=== PATIENT | male | born 1955 | race Caucasian/White ===

== ENCOUNTER → 2017-09-17 | Outpatient (CLI) | payer BC ==
--- NOTE | 2017-09-17 09:34 | Diagnostic Imaging Report ---
INDICATION: Cough. TIME OF EXAM: 9:35 AM Correlation is made with prior study 03/15/2007. FINDINGS: The heart size is normal. The pulmonary vascularity is unremarkable. The lungs are clear. No infiltrate, effusion or pneumothorax is detected. IMPRESSION: No acute cardiopulmonary process is detected. Dictated by: Dictated on workstation # [id number]
== END ==
LOC: RAD 09:08
PROVIDERS: ATTEND Internal Medicine
DX: R05 Cough (principal)
CPT/HCPCS: 71046

== ENCOUNTER 2018-03-28 07:41 | Day surgery (SDC) | payer BC ==
[~2018-03-28] VITALS: Ht 185.4 cm; Wt 159.2 kg
[2018-03-28] VITALS (8 sets, daily range): BP systolic 119–162; BP diastolic 70–103
[~2018-03-28 07:41] MED LIST: AMIO200T4 PO; AMLO-119 PO; APIX5TAB PO; ASPI-983 PO; ATEN100T PO; DILT120C63 PO; ERGO50006 PO; FENO145T37 PO; GLIM2TAB PO; INSU100I10 SC; INSU100I14 SC; KRIL1CAP18 PO; METF-399 PO; METO-370 PO; MULT-35 PO; SIMV20TA3 PO; TRIA1CAP4 PO; UBID200C16 PO
[2018-03-28] MEDS ORDERED: NS IV 1000 ML 1,000 ML ONE (07:49)
--- OUTSIDE RECORDS SUMMARY | 2018-03-28 07:54 | XMS REPORT | Continuity of Care Document ---
Author Author [facility] Organization [facility] Address Unknown Phone Unavailable Allergies There is no data. Medications There is no data. Problems There is no data. Procedures There is no data. Results There is no data. Encounters ACCT No. Visit Date/Time Discharge Status Pt. Type Provider Facility Loc./Unit Complaint [id number] 06/25/2014 09:27:10 06/25/2014 23:59:59 CLS Outpatient Tom Salomon
[2018-03-28] MEDS ORDERED: NS IV 1000 ML 1,000 ML IV SCH (08:00)
[2018-03-28] MEDS ORDERED: DILT240T10 PO (09:13)
[2018-03-28] MEDS ORDERED: DILT240C63 PO (09:14)
[2018-03-28] MEDS ORDERED: AMLO-119 (09:15)
[2018-03-28] MEDS ORDERED: KRIL1CAP18 PO (09:17)
[2018-03-28] MEDS ORDERED: INSU100I14 SQ (09:21)
[2018-03-28] MEDS ORDERED: AMIO200T4 PO (09:21)
[2018-03-28] MEDS ORDERED: FURO20TA4 PO (09:22)
[2018-03-28] MEDS ORDERED: proPOfol 200 MG/20 ML (DIPRIVAN) VIAL IV ONE (09:30)
[2018-03-28] MEDS ORDERED: MIDAZOLAM 2 MG/2 ML (VERSED) VIAL ONE (09:30)
--- NOTE | 2018-03-28 09:59 | Progress Note-Standard ---
Standard Progress Note Progress Notes/Assess & Plan Date Seen by Provider: Mar 28, 2018 Time Seen by Provider: 09:50 Progress/Assessment & Plan consult for sedation for cardioversion. start time 0950 end alyssa [id number] mac anesthesia. asa 3. 100mg propofol IV and 2mg versed IV given. tolerated procedure well.. MARS WREN CRNA Mar 28, 2018 09:59
--- NOTE | 2018-03-28 10:14 | Cardioversion ---
Cardioversion PROCEDURE PHYSICIAN: Mckenna Zhou MD DATE OF PROCEDURE: 03/28/18 DIRECT EXTERNAL ELECTRICAL CARDIOVERSION: Indications: Atrial flutter with rapid ventricular rate Preoperative diagnoses: Atrial flutter with rapid ventricular rate Postoperative diagnosis: Sinus rhythm, Successful Electrical Cardioversion History: Anesthesia: By Anesthesia services Complications: None Specimen: None Contrast: 0 Flouroscopy: none Procedure Details: The patient was brought the medical lab director after informed consent was taken, all the risks and complications were explained including the risk of stroke. Electrical cardioversion was carried out with anesthesia support with propofol. 200 joules of synchronized shock was delivered through external patches which promptly restored sinus rhythm. The patient tolerated the procedure well. Conclusions: 1.Successful Cardioversion. 2.Continue amiodarone, oral anticoagulation and rate controlling agent. 3.Follow up in office in 7-10 days. Mckenna Zhou MD, RS, CCDS Cardiac Electrophysiology Jacy ZHOU MD Mar 28, 2018 10:14
== END 2018-03-28 10:54 | disposition home or self-care (01) ==
LOC: CATH 07:41
PROVIDERS: ATTEND Internal Medicine Interventional Cardiology
DX: I48.92 Unspecified atrial flutter (principal); I44.39 Other atrioventricular block; I10 Essential (primary) hypertension; E11.9 Type 2 diabetes mellitus without complications; G47.33 Obstructive sleep apnea (adult) (pediatric); E66.01 Morbid (severe) obesity due to excess calories; Z68.42 Body mass index [BMI] 45.0-49.9, adult; Z79.01 Long term (current) use of anticoagulants; Z79.899 Other long term (current) drug therapy; Z79.4 Long term (current) use of insulin
CPT/HCPCS: 92960; 93005

== ENCOUNTER 2018-05-06 06:10 | Outpatient (CLI) | payer BC ==
[~2018-05-06] VITALS: Ht 185.4 cm; Wt 159.2 kg
[~2018-05-06 06:10] MED LIST changes: +AMLO-119; +DILT240C63 PO; +DILT240T10 PO; +FURO20TA4 PO; +INSU100I14 SQ
[2018-05-06] MEDS ORDERED: UBID100C44 PO (14:21)
[2018-05-06] MEDS ORDERED: METO-370 PO (14:21)
[2018-05-06] MEDS ORDERED: APIX5TAB PO (14:21)
[2018-05-06] MEDS ORDERED: AMLO1CAP5 PO (14:21)
== END 2018-05-06 14:32 | disposition home or self-care (01) ==
LOC: PREOP 06:10
PROVIDERS: ATTEND Internal Medicine Interventional Cardiology
DX: Z01.818 Encounter for other preprocedural examination (principal)

== ENCOUNTER 2018-05-13 06:18 | Day surgery (SDC) | payer BC ==
[~2018-05-13] VITALS: Ht 185.4 cm; Wt 159.2 kg
[2018-05-13] VITALS (9 sets, daily range): BP systolic 92–159; BP diastolic 57–105
[~2018-05-13 06:18] MED LIST changes: +AMLO1CAP5 PO; -DILT240C63 PO; +DILT240C97 PO; +UBID100C44 PO
--- OUTSIDE RECORDS SUMMARY | 2018-05-13 06:31 | XMS REPORT | Continuity of Care Document ---
Author Author [facility] Organization [facility] Address Unknown Phone Unavailable Allergies There is no data. Medications There is no data. Problems There is no data. Procedures There is no data. Results There is no data. Encounters ACCT No. Visit Date/Time Discharge Status Pt. Type Provider Facility Loc./Unit Complaint [id number] 06/25/2014 09:27:10 06/25/2014 23:59:59 CLS Outpatient Tom Salomon
[2018-05-13] MEDS ORDERED: NS IV 1000 ML 1,000 ML ONE (06:47)
[2018-05-13] MEDS ORDERED: HEParin (CATH LAB) 2,000 ML IV ONE (06:47)
[2018-05-13] MEDS ORDERED: LIDOCAINE 1% INJ 20 ML 20 ML VIAL ONE (06:47)
[2018-05-13] MEDS ORDERED: ISOPROTERENOL 0.2 MG/100 ML D5W IV ONE ×2 (07:00→08:00)
[2018-05-13 07:17] LABS: HEMOGLOBIN 13.8 G/DL (13.3-17.7); MEAN PLATELET VOLUME 10.8 FL (7.4-10.4); RED BLOOD COUNT 4.99 10^6/uL (4.35-5.85); RED CELL DISTRIBUTION WIDTH 14.3 % (10.0-14.5); WHITE BLOOD COUNT 7.3 10^3/uL (4.3-11.0)
[2018-05-13 07:29] LABS: PROTHROMBIN TIME PATIENT 13.5 SEC (12.2-14.7)
[2018-05-13 07:39] LABS: ALANINE AMINOTRANSFERASE 37 U/L (0-55); ALBUMIN 4.2 GM/DL (3.2-4.5); ALKALINE PHOSPHATASE 47 U/L (40-136); BILIRUBIN,TOTAL 0.4 MG/DL (0.1-1.0); BUN/CREATININE RATIO 18; CALCIUM 9.4 MG/DL (8.5-10.1); CARBON DIOXIDE 24 MMOL/L (21-32); CHLORIDE 104 MMOL/L (98-107); GFR ESTIMATED > 60; GLUCOSE 179 MG/DL (70-105); POTASSIUM 4.3 MMOL/L (3.6-5.0); SODIUM 139 MMOL/L (135-145); TOTAL PROTEIN 8.1 GM/DL (6.4-8.2)
[2018-05-13] MEDS ORDERED: ROCURONIUM 10 MG/ML 5 ML SYRINGE IV ONE (07:56)
[2018-05-13] MEDS ORDERED: fentaNYL INJECTION 100 MCG/2 ML AMP ONE (07:56)
[2018-05-13] MEDS ORDERED: SUCCINYLCHOLINE INJ 100 MG/5 ML SYR ONE (07:56)
[2018-05-13] MEDS ORDERED: proPOfol 200 MG/20 ML (DIPRIVAN) VIAL IV ONE (07:56)
[2018-05-13] MEDS ORDERED: LIDOCAINE BOLUS 100 MG/5 ML (IMS) SYR ONE (07:57)
[2018-05-13] MEDS ORDERED: FLU QUADRIvalent (5+ YOA) 2018-2019 (AFLURIA) 0.5 ML IM ONE ×2 (08:00→14:28)
[2018-05-13] MEDS ORDERED: MIDAZOLAM 2 MG/2 ML (VERSED) VIAL ONE (08:09)
[2018-05-13] MEDS ORDERED: SEVOFLURANE (ULTANE) 15 ML INHAL SOLN ONE (08:17)
[2018-05-13] MEDS ORDERED: LACTATED RINGERS 1,000 ML IV ONE (10:04)
[2018-05-13] MEDS ORDERED: ONDANSETRON 4 MG/2 ML (SDV) Z0FRAN ONE (11:18)
[2018-05-13] MEDS ORDERED: NS IV 1000 ML 1,000 ML IV SCH (11:27)
--- NOTE | 2018-05-13 11:27 | Cardiology Post Procedure Note ---
Post-Procedure Note Physician (s)/Waste Disposal Plant Operator (s) Physician Jacy DUNCAN MD Pre-Procedure Diagnosis Pre-Procedure Diagnosis: Typical atrial flutter. Post-Procedure Note Procedure Start Date: May 13, 2018 Procedure Start Time: 09:10 Name of Procedure: Direct Electrical Cardioversion, Comprehensive EP study, 3-D mapping, drug-induction, typical atrial flutter ablation. Findings/Procedure Note Typical atrial flutter ablation. Estimated blood loss (mL): 10 Contrast Amount: 0 Post-Procedure Diagnosis Post-operative diagnosis: Direct electrical cardioversion, typical atrial flutter ablation. Jacy DUNCAN MD May 13, 2018 11:27 am
[2018-05-13] MEDS ORDERED: APIXABAN 5 MG (ELIQUIS) TABLET PO SCH ×2 (11:30→21:00)
[2018-05-13] MEDS ORDERED: PATIENT MAY USE OWN MEDS, ALL PO SCH (11:30)
[2018-05-13] MEDS ORDERED: ONDANSETRON 4 MG/2 ML (SDV) Z0FRAN IVP PRN (12:15)
[2018-05-13] MEDS ORDERED: fentaNYL INJECTION 100 MCG/2 ML AMP IVP ONE (12:15)
[2018-05-13] MEDS ORDERED: FUROSEMIDE 40 MG/4 ML INJ (LASIX) ONE (12:27)
[2018-05-13] MEDS ORDERED: FUROSEMIDE 40 MG/4 ML INJ (LASIX) IVP ONE (12:30)
[2018-05-13] MEDS: APIXABAN 5 MG (ELIQUIS) TABLET PO SCH ×2 (14:39→20:40)
[2018-05-13] MEDS ORDERED: FUROSEMIDE 20 MG (LASIX) TAB PO PRN (16:00)
[2018-05-13] MEDS ORDERED: NON-FORMULARY MEDICATION 1 EA EA (Insulin Aspart (Novolog Flexpen) 25 UNITS) SC SCH (16:00)
[2018-05-13] MEDS: inSUlin ASPART (NovoLOG) 1 UNIT/0.01 ML (CHARGE PER UNIT) SC SCH (16:44)
[2018-05-13] MEDS: GLIMEPIRIDE 2 MG (AMARYL) TAB PO SCH (16:44)
[2018-05-13] MEDS ORDERED: VITAMIN D2 50,000 UNITS (1.25 MG) CAP PO SCH (17:00)
[2018-05-13] MEDS ORDERED: NON-FORMULARY MEDICATION 1 EA EA (Insulin Glargine,Hum.rec.anlog (Lantus Solostar) 45 UNIT SC SCH (21:00)
[2018-05-13] MEDS ORDERED: ATORVASTATIN 10 MG (LIPITOR) TABLET PO SCH (21:00)
[2018-05-13] MEDS ORDERED: SIMvastatin 20 MG (ZOCOR) TAB PO SCH (21:00)
[2018-05-13] MEDS ORDERED: inSUlin GLARGINE 1000 UNITS/10 ML (LANTUS) VIAL SQ SCH (21:00)
[2018-05-13] MEDS ORDERED: NON-FORMULARY MEDICATION 1 EA EA (Krill/Om-3/Dha/Epa/Phospho/Ast (Krill Oil 1,000 mg Softg PO SCH (21:00)
--- NOTE | 2018-05-13 23:17 | OPERATIVE REPORT ---
DATE OF SERVICE: 05/13/2018 EP STUDY AND TYPICAL ATRIAL FLUTTER ABLATION CARDIAC HOSTESS PARTY SALES REPRESENTATIVE: Mckenna Zhou MD, [facility], [facility]. INDICATION: Typical atrial flutter - CTI dependent. PREOPERATIVE DIAGNOSIS: Typical atrial flutter - CTI dependent. POSTOPERATIVE DIAGNOSIS: Typical atrial flutter, status post cavotricuspid isthmus ablation. HISTORY: This is a 62-year-old gentleman with history of symptomatic typical atrial flutter that required transesophageal echocardiogram assisted cardioversion. He was on antiarrhythmic therapy with amiodarone. Typical atrial flutter ablation was planned. The patient was on uninterrupted Eliquis. PROCEDURE PERFORMED: 1. Direct electrical cardioversion. 2. Comprehensive EP study with induction. 3. Fluoroscopy. 4. CS pacing. 5. Ablation of typical atrial flutter. 6. 3D mapping with carto. 7. Drug infusion. COMPLICATION: None. ESTIMATED BLOOD LOSS: 10 mL. CONTRAST USED: None. FLUOROSCOPY TIME: 6.2 minutes. FLUOROSCOPY DOSE: 480 milligrays. SPECIMENS: None. ANESTHESIA: Done by our anesthesia colleagues. Please refer to their note. ANTICOAGULATION: On uninterrupted Eliquis therapy. PROCEDURE IN DETAIL: After informed consent was taken, the patient was brought to the EP lab. Anesthesia was provided by our anesthesia colleagues. The patient was draped and prepped in the usual sterile fashion. The patient presented to the EP lab in atrial fibrillation. Since the patient was on an uninterrupted Eliquis after the previous transesophageal echocardiogram. Therefore, direct electrical cardioversion was done with synchronized 200 joules shock which converted the patient promptly to sinus rhythm. Access was gained in the right femoral vein with a 6-[place] and an 8-[place] sheath, respectively. Access was also gained in the left femoral vein with 5-[place] and 6-[place] sheath, respectively. An ablation catheter was placed in the high right atrium, right ventricular catheter was placed, His catheter and CS catheter was placed for pacing and recording. A comprehensive EP study was done, which included pacing from the high right atrium as well as pacing and recording from the CS catheter as well. Isuprel was started at 1 microgram per minute and increased to 8 mcg per minute. Numerous maneuvers were done including rapid atrial pacing and APCs during A pacing with no induction of atrial flutter. 3D electroanatomic mapping was done with the carto system. We created a shell of the right atrium with a mapping system as well as identified critical structures in the right atrium including the SVC, IVC, tricuspid annulus, coronary sinus os, His electrogram. Ablation was performed in the cavotricuspid isthmus. A CS pacing and pacing from the ablation catheter at different positions on the lateral side of the ablation line were used to verify bidirectional block. We then waited for 30 minutes and rechecked and confirmed bidirectional block. The patient tolerated the procedure well and did not have any complication. The patient left the lab in sinus rhythm. Total ablation time was 171 seconds. MEASUREMENTS/EP STUDY: AH time 179 milliseconds. HV time. WI interval 162 milliseconds, QRS duration 57 milliseconds. QT interval 322 milliseconds. RR interval 527 milliseconds, AV Wenckebach 490 milliseconds. Retrograde Wenckebach 590 milliseconds. AV node fast ERP. AV node slow pathway ERP. AV esha ERP 600/330 milliseconds. 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 PLAN: The patient will be observed overnight and will be discharged home tomorrow with precise follow up instructions. Job ID: [id number] DocumentID: [id number] Dictated Date: 05/13/2018 21:57:58 Lifeguard Date: 05/13/2018 23:17:02 Dictated By: MD MATEO BOOKERD
[2018-05-14] VITALS: BP 150/83
[2018-05-14 04:00] VITALS: BP 128/82
[2018-05-14] MEDS: inSUlin ASPART (NovoLOG) 1 UNIT/0.01 ML (CHARGE PER UNIT) SC SCH (06:57)
[2018-05-14] MEDS: GLIMEPIRIDE 2 MG (AMARYL) TAB PO SCH (06:58)
[2018-05-14] MEDS ORDERED: MULTIVIT W/MINERALS TAB (THERAGRAN M) PO SCH (07:00)
--- NOTE | 2018-05-14 07:13 | Anesthesia-General Post-Op ---
General Patient Condition Mental Status/LOC: Same as Preop Cardiovascular: Satisfactory Nausea/Vomiting: Absent Respiratory: Satisfactory Pain: Controlled Complications: Absent Post Op Complications Complications None Follow Up Care/Instructions Patient Instructions None needed. Anesthesia/Patient Condition Patient Condition Patient is doing well, no complaints, stable vital signs, no apparent adverse anesthesia problems. No complications reported per nursing. CATHY REECE CRNA May 14, 2018 07:13
[2018-05-14 07:55] VITALS: BP 157/80
[2018-05-14] MEDS: APIXABAN 5 MG (ELIQUIS) TABLET PO SCH (08:00)
[2018-05-14] MEDS ORDERED: NON-FORMULARY MEDICATION 1 EA EA (Ubidecarenone (Co Q-10) 100 MG) PO SCH (09:00)
[2018-05-14] MEDS ORDERED: NON-FORMULARY MEDICATION 1 EA EA (Diltiazem HCl (Diltiazem 24Hr Cd) 240 MG) PO SCH (09:00)
[2018-05-14] MEDS ORDERED: AMLODIPINE PO SCH (09:00)
[2018-05-14] MEDS ORDERED: BENAZEPRIL PO SCH (09:00)
[2018-05-14] MEDS ORDERED: FENOFIBRATE 145 MG TAB PO SCH (09:00)
[2018-05-14] MEDS ORDERED: NON-FORMULARY MEDICATION 1 EA EA (Multivitamin (Daily Multiple Vitamin) 1 TAB) PO SCH (09:00)
[2018-05-14] MEDS ORDERED: NON-FORMULARY MEDICATION 1 EA EA (Fenofibrate Nanocrystallized (Fenofibrate) 145 MG) PO SCH (09:00)
[2018-05-14] MEDS ORDERED: meTOproloL SUCCINATE 50 MG (TOPROL XL) TAB PO SCH ×2 (09:00)
[2018-05-14] MEDS ORDERED: SIMvastatin 20 MG (ZOCOR) TAB PO SCH (09:00)
[2018-05-14] MEDS ORDERED: DILTIAZEM 240 MG (CARDIZEM CD) CAP PO SCH (09:00)
--- NOTE | 2018-05-14 09:11 | Cardiology Discharge Summary ---
Diagnosis/Chief Complaint Date of Admission 05/13/2018 Date of Discharge 05/14/2018 Admission Diagnosis Typical atrial flutter Final/Discharge Diagnosis Successful typical atrial flutter ablation. Chief Complaint/HPI Chief Complaint/HPI This is a 62-year-old gentleman with history of typical atrial flutter. The patient was very symptomatic. He was on amiodarone. Typical atrial flutter ablation is recommended. Discharge Summary Procedures Direct Electrical Cardioversion, Comprehensive EP study, 3-D mapping, drug- induction, typical atrial flutter ablation. Discharge Physical Examination Stable cardiovascular, respiratory and groin examination. Hospital Course Unremarkable. Pending Labs Laboratory Tests 05/14/18 07:00: Glucometer 107 Discussion & Recommendations Discussion Discharge took over 30 minutes to complete. Discharge instructions were discussed at length with the patient and family. The patient will continue on Eliquis long-term. We'll discuss about further atrial fibrillation management in the future. I'll follow-up the patient in 3-4 weeks. Follow up appt.: Dr. Zhou in 3-4 weeks. Dicharge Diet: Cardiac Diet Activity as Tolerated: Yes Home Medications Reviewed patient Home Medication Reconciliation performed by pharmacy medication reconciliations projection technician and/or nursing. Patients Allergies have been reviewed. Discharge Home Medications: Reviewed and agree with Discharge Medication list on patient's Discharge Instruction sheet Condition at discharge Stable. Instructions to patient/family Discussed with the patient and family. Jacy ZHOU MD May 14, 2018 9:11 am
[2018-05-14 10:57] VITALS: BP 157/80
== END 2018-05-14 10:57 | disposition home or self-care (01) ==
LOC: CARD 06:18 → ICU 14:15 → CARD 05-14 10:57
PROVIDERS: ATTEND Internal Medicine Interventional Cardiology
DX: I48.3 Typical atrial flutter (principal); I44.1 Atrioventricular block, second degree; I10 Essential (primary) hypertension; E11.9 Type 2 diabetes mellitus without complications; G47.33 Obstructive sleep apnea (adult) (pediatric); E66.01 Morbid (severe) obesity due to excess calories; Z68.42 Body mass index [BMI] 45.0-49.9, adult; Z79.01 Long term (current) use of anticoagulants; Z79.4 Long term (current) use of insulin; Z79.899 Other long term (current) drug therapy
CPT/HCPCS: 36415; 80053; 82962; 85027; 85610; 85730; 87081; 90686; 92960; 93005; 93613; 93621; 93623; 93653

== ENCOUNTER 2018-09-05 10:08 | Outpatient (RCR) | payer BC ==
[~2018-09-05 10:08] MED LIST changes: -DILT120C63 PO; +DILT120C94 PO
[2018-11-28] MEDS ORDERED: NF-LT10/20 PO (10:39)
[2018-11-28] MEDS ORDERED: FURO-124 PO (10:39)
[2018-11-28] MEDS ORDERED: DRON400T2 PO (10:39)
[2018-11-28] MEDS ORDERED: HYDR-3924 PO (10:39)
[2018-11-28] MEDS ORDERED: MINO2.5T PO (10:39)
[2018-11-28] MEDS ORDERED: UBID200C16 PO (10:39)
[2018-11-28] MEDS ORDERED: POTA10TA10 PO (10:39)
== END 2018-12-04 | disposition home or self-care (01) ==
LOC: CARD 10:08
PROVIDERS: ATTEND Internal Medicine Interventional Cardiology
DX: I48.1 Persistent atrial fibrillation (principal)
CPT/HCPCS: 93270

== ENCOUNTER → 2018-11-28 | Day surgery (SDC) | payer BC ==
[~2018-11-28] VITALS: Ht 185.4 cm; Wt 163.7 kg
[2018-11-28] VITALS (9 sets, daily range): BP systolic 128–146; BP diastolic 74–92
[~2018-11-28] MED LIST changes: +DRON400T2 PO; +FURO-124 PO; +HYDR-3924 PO; +LIDOCAINE 1% INJ 20 ML 20 ML VIAL ONE; +MINO2.5T PO; +NF-LT10/20 PO; +NS IV 1000 ML 1,000 ML IV SCH; +POTA10TA10 PO; +proPOfol 200 MG/20 ML (DIPRIVAN) VIAL IV ONE
--- NOTE | 2018-11-28 10:24 | Anesthesia-Procedure Note ---
Procedures/Interventions Procedure Start/Stop/Diagnosis Date of Procedure: November 28, 2018 Start Time: 08:56 Referring Physician: Abelardo Preprocedural Diagnosis: Atrial Fib/Flutter Brief History Called to pit laborer for scheduled cardioversion for Dr. Zhou. Brief hx obtained from chart and pt. ASA 3 NPO status verified. Monitors applied. O2 per NC. Pt received a total of 120 mg propofol without complications. Report to RN VSS. Pt spont breathing opening eyes. Stop Time: 09:03 Postprocedural Diagnosis: Atrial Fib/Flutter KATLYN HENDERSON CRNA November 28, 2018 10:24
--- NOTE | 2018-11-28 11:46 | Cardioversion ---
Cardioversion PROCEDURE PHYSICIAN: Mckenna Zhou MD DATE OF PROCEDURE: 11/28/18 DIRECT EXTERNAL ELECTRICAL CARDIOVERSION: Indications: Atrial Fibrillation/flutter with rapid ventricular rate Preoperative diagnoses: Atrial Fibrillation/flutter with rapid ventricular rate Postoperative diagnosis: Sinus rhythm, Successful Electrical Cardioversion History: This is a 63-year-old gentleman with symptomatic atrial fibrillation/ flutter. Anesthesia: By Anesthesia services Complications: None Specimen: None Contrast: 0 Flouroscopy: none Procedure Details: The patient was brought the calibration laboratory technician after informed consent was taken, all the risks and complications were explained including the risk of stroke. Electrical cardioversion was carried out with anesthesia support with propofol. 200 joules of synchronized shock was delivered through external patches which promptly restored sinus rhythm. The patient tolerated the procedure well. Conclusions: 1.Successful Cardioversion. 2.Continue oral anticoagulation and rate controlling agent. 3.Follow up in office on previously scheduled appointment. Mckenna Zhou MD, RS, CCDS Cardiac Electrophysiology Jacy ZHOU MD November 28, 2018 11:46
--- NOTE | 2018-11-28 11:46 | Implantation of Loop Monitor ---
Implant of Loop Monitior PROCEDURE PHYSICIAN: Mckenna Zhou MD IMPLANTATION OF LOOP MONITOR REPORT DATE OF PROCEDURE: 11/28/18 ATTENDING PHYSICIAN: Dr. Antoni Zhou. PERFORMING PHYSICIAN: Dr. Antoni Zhou. INDICATION: Long-term surveillance of atrial fibrillation PREOP DIAGNOSIS: Long-term surveillance of atrial fibrillation POSTOP DIAGNOSIS: Atrial fibrillation, s/p implantation of loop recorder. PROCEDURE DETAILS: The patient is a 63 male with history of paroxysmal atrial fibrillation requiring long-term surveillance. Therefore implantable loop recorder was discussed and agreed with the patient. Informed consent was taken. All risks and complications were discussed at length. The patient was draped and prepped in the usual sterile fashion. Local anesthesia was lidocaine, which was given in the substernal area close to the 4th intercostal space. Loop monitor was implanted according to the protocol. Steri-Strips were placed at the end of the procedure. There were no complications and the patient tolerated the procedure well. ANESTHESIA: Local anesthesia with lidocaine. COMPLICATIONS: None CONTRAST/FLUOROSCOPY: None CONCLUSION: 1. Successful implantation of loop monitor for paroxysmal atrial fibrillation. 2. No complication and the patient tolerated the procedure well. Mckenna Zhou MD, RS, CCDS Cardiac Electrophysiology Jacy ZHOU MD November 28, 2018 11:46
--- NOTE | 2018-11-28 13:55 | Anesthesia-General Post-Op ---
MAC Patient Condition Mental Status/LOC: Same as Preop Cardiovascular: Satisfactory Nausea/Vomiting: Absent Respiratory: Satisfactory Pain: Controlled Complications: Absent Post Op Complications Complications None Follow Up Care/Instructions Patient Instructions None needed. Anesthesiology Discharge Order Discharge Order Patient is doing well, no complaints, stable vital signs, no apparent adverse anesthesia problems. No complications reported per nursing. KATLYN HENDERSON CRNA November 28, 2018 13:55
== END | disposition home or self-care (01) ==
LOC: CATH 07:47
PROVIDERS: ATTEND Internal Medicine Interventional Cardiology
DX: I48.0 Paroxysmal atrial fibrillation (principal); I48.4 Atypical atrial flutter; I44.1 Atrioventricular block, second degree; I34.0 Nonrheumatic mitral (valve) insufficiency; I10 Essential (primary) hypertension; E11.9 Type 2 diabetes mellitus without complications; G47.33 Obstructive sleep apnea (adult) (pediatric); E66.01 Morbid (severe) obesity due to excess calories; Z68.42 Body mass index [BMI] 45.0-49.9, adult; Z79.01 Long term (current) use of anticoagulants; Z79.4 Long term (current) use of insulin; Z79.899 Other long term (current) drug therapy
CPT/HCPCS: 33285; 92960; 93005

== ENCOUNTER 2019-07-30 08:19 | Inpatient (IN) | payer BC ==
[~2019-07-30] VITALS: Ht 185 cm; Wt 170.0 kg
[2019-07-30] VITALS (12 sets, daily range): BP systolic 99–189; BP diastolic 60–110
[~2019-07-30 08:19] MED LIST changes: -AMLO-119; -AMLO-119 PO; +AMLO-168; +AMLO-168 PO; +DILT120C88 PO; -DILT120C94 PO; +DILT240C92 PO; -DILT240C97 PO; -GLIM2TAB PO; +GLIM2TAB2 PO; -LIDOCAINE 1% INJ 20 ML 20 ML VIAL ONE; -METO-370 PO; +METO50TA7 PO; -NS IV 1000 ML 1,000 ML IV SCH; +SIMV20TA26 PO; -SIMV20TA3 PO; -proPOfol 200 MG/20 ML (DIPRIVAN) VIAL IV ONE
--- NOTE | 2019-07-30 08:22 | NUR ---
BROUGHT TO ROOM FOR PT'S CONDITION.
[2019-07-30] MEDS ORDERED: FUROSEMIDE 40 MG/4 ML INJ (LASIX) IV STA ×2 (08:29→10:05)
[2019-07-30] MEDS ORDERED: ASPIRIN 81 MG CHEW (CHILDREN'S ASA) PO ONE (08:30)
--- NOTE | 2019-07-30 08:30 | NUR ---
RT IN ROOM SETTING UP BIPAP
[2019-07-30 08:41] LABS: BASOPHILS % (AUTO) 0 % (0-10); EOSINOPHILS # (AUTO) 0.1 10^3/uL (0.0-0.3); EOSINOPHILS % (AUTO) 1 % (0-10); HEMATOCRIT 41 % (40-54); HEMOGLOBIN 13.4 G/DL (13.3-17.7); LYMPHOCYTES # (AUTO) 1.9 X 10^3 (1.0-4.0); LYMPHOCYTES % (AUTO) 20 % (12-44); MEAN CORPUSCULAR HEMOGLOBIN 28 PG (25-34); MEAN CORPUSCULAR HGB CONC 33 G/DL (32-36); MEAN CORPUSCULAR VOLUME 86 FL (80-99); MEAN PLATELET VOLUME 11.3 FL (7.4-10.4); MONOCYTES # (AUTO) 0.7 X 10^3 (0.0-1.0); MONOCYTES % (AUTO) 7 % (0-12); NEUTROPHILS # (AUTO) 6.7 X 10^3 (1.8-7.8); NEUTROPHILS % (AUTO) 71 % (42-75); PLATELET COUNT 200 10^3/uL (130-400); RED CELL DISTRIBUTION WIDTH 15.2 % (10.0-14.5); WHITE BLOOD COUNT 9.4 10^3/uL (4.3-11.0)
[2019-07-30 08:52] LABS: INR 1.1 (0.8-1.4); PROTHROMBIN TIME PATIENT 14.1 SEC (12.2-14.7)
--- NOTE | 2019-07-30 08:53 | NUR ---
DR HARPER HERE TO SEE PT.
[2019-07-30 08:58] LABS: ABG BASE EXCESS -0.9 MMOL/L (-2.5-2.5); ABG OXYGEN SATURATION 96 % (94-100); ABG PCO2 43 MMHG (35-45); ABG PH 7.36 (7.37-7.43); ABG PO2 81 MMHG (79-93); ABG TCO2 25.2 MMOL/L (21.0-31.0); ALLENS TEST POSITIVE; INSPIRED O2 30%; PATIENT TEMP 36.5; VENTILATOR NO
[2019-07-30 09:01] LABS: ALBUMIN 4.1 GM/DL (3.2-4.5); BILIRUBIN,TOTAL 0.3 MG/DL (0.1-1.0); CALCIUM 9.5 MG/DL (8.5-10.1); CREATININE SERUM 1.24 MG/DL (0.60-1.30); MAGNESIUM 1.6 MG/DL (1.6-2.4); TOTAL PROTEIN 7.9 GM/DL (6.4-8.2)
--- NOTE | 2019-07-30 09:55 | Diagnostic Imaging Report ---
EXAMINATION: Chest radiograph, portable AP view. DATE: 07/30/2019 9:14 AM. INDICATION: 64-year-old male, shortness of breath. COMPARISON: March 07, 2018. FINDINGS: The heart is right at the upper limits of normal in size. There is no identified pneumothorax. There is no large pleural effusion. There are mildly prominent interstitial markings. There do appear to be Ace B lines present. IMPRESSION: The heart size is right at the upper limits of normal. There are bilateral interstitial opacities with probable Ace B lines, most suggestive of pulmonary interstitial edema. Dictated by: Dictated on workstation # [id number]
--- NOTE | 2019-07-30 10:12 | NUR ---
IN TALKING TO PT AT THIS TIME.
--- NOTE | 2019-07-30 10:26 | ED Respiratory ---
General Chief Complaint: Respiratory Problems Stated Complaint: SOA Nursing Triage Note: ARRIVED VIA AMBULANCE DOORS WITH SEVERE SOA STARTING THIS AM. Source: patient Exam Limitations: no limitations History of Present Illness Date Seen by Provider: Jul 30, 2019 Time Seen by Provider: 08:25 Initial Comments Here with acute onset of shortness of breath. States that he woke up this morning was doing okay. He wears CPAP at night. Shortly later he became short of breath and this worsened significantly by the time he got to work. 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 His partners brought him to the hospital for further evaluation. On arrival he had an O2 saturation of 74% on room air. Does not normally wear oxygen. Does admit to increasing weight and swelling in his legs specifically over the last few weeks. He does take Lasix daily. He has not had his dose yet today. He does have intermittent atrial fibrillation and he is on Eliquis and is taking that as directed. He is diabetic. He follows with Dr. Harper and Dr. Zhou. He has had to use an inhaler a couple times over the last few days and states that that has helped some. Timing/Duration: this morning Severity: moderate, severe Prior Episodes/Possible Cause: occasional episodes Modifying Factors: Improves With Oxygen, Improves With Rest Associated Symptoms: No chest pain/soreness, No cough, No fever/chills, No nasal congestion; shortness of breath; No wheezing Allergies and Home Medications Allergies Coded Allergies: NKANo Known Allergies (Verified Allergy, Unknown, 03/15/07) Home Medications Amlodipine/Benazepril 1 Cap Cap, 1 CAP PO DAILY, (Reported) Apixaban 5 Mg Tablet, 5 MG PO BID, (Reported) Diltiazem HCl 240 Mg Cap.er.24h, 240 MG PO DAILY, (Reported) Dronedarone HCl 400 Mg Tablet, 400 MG PO BID, (Reported) Ergocalciferol (Vitamin D2) 50,000 Unit Capsule, 50,000 UNITS PO WEEK, (Reported) Fenofibrate Nanocrystallized 145 Mg Tablet, 145 MG PO DAILY, (Reported) Furosemide 40 Mg Tablet, 40 MG PO BID, (Reported) Glimepiride 2 Mg Tablet, 2 MG PO BID, (Reported) Hydralazine HCl 50 Mg Tablet, 50 MG PO QID, (Reported) Insulin Aspart 300 Units/3 Ml Solution, 25 UNITS SC TIDAC, (Reported) Insulin Glargine,Hum.rec.anlog 100 Unit/1 Ml Insuln.pen, 30 UNITS SC HS, (Reported) Krill/Om-3/Dha/Epa/Phospho/Ast 1 Each Capsule, 1 EACH PO DAILY, (Reported) Metformin HCl 1,000 Mg Tablet, 1,000 MG PO BID WITH MEALS, (Reported) Metoprolol Succinate 50 Mg Tab.er.24h, 50 MG PO DAILY, (Reported) Minoxidil 2.5 Mg Tablet, 2.5 MG PO BID, (Reported) Multivitamin 1 Each Tablet, 1 TAB PO DAILY, (Reported) Potassium Chloride 10 Meq Tablet.er, 10 MEQ PO DAILY, (Reported) Simvastatin 20 Mg Tablet, 20 MG PO DAILY, (Reported) Ubidecarenone 200 Mg Capsule, 200 MG PO DAILY, (Reported) Patient Home Medication List Home Medication List Reviewed: Yes Review of Systems Review of Systems Constitutional: see HPI; No chills, No fever EENTM: no symptoms reported Respiratory: see HPI, dyspnea on exertion, short of breath; No wheezing Cardiovascular: No chest pain; edema; No palpitations Gastrointestinal: No abdominal pain, No nausea, No vomiting Genitourinary: no symptoms reported Musculoskeletal: no symptoms reported All Other Systems Reviewed Negative Unless Noted: Yes Past Ghchgzt-Ddcomy-Kccpyl Hx Past Med/Social Hx: Reviewed Nursing Past Med/Soc Hx Patient Social History Alcohol Use: Denies Use Recreational Drug Use: No Type Used: Cigarettes Recent Foreign Travel: No Contact w/Someone Who Travel: No Recent Infectious Disease Expo: No Recent Hopitalizations: No Immunizations Up To Date PED Vaccines UTD: No Date of Pneumonia Vaccine: Mar 28, 2016 Date of Influenza Vaccine: Mar 28, 2016 Seasonal Allergies Seasonal Allergies: Yes Past Medical History Surgeries: Yes (ep with ablation) Respiratory: Yes Sleep Apnea Currently Using CPAP: Yes Currently Using BIPAP: No Cardiac: Yes (typical atrial flutter) Atrial Fibrillation, High Cholesterol, Hypertension Neurological: Yes Concussion Genitourinary: No Gastrointestinal: No Musculoskeletal: No Chronic Back Pain Endocrine: Yes Diabetes, Insulin dep HEENT: No Loss of Vision: Denies Hearing Impairment: Denies Cancer: No Psychosocial: No Integumentary: No Blood Disorders: No Adverse Reaction/Blood Tranf: No Family Medical History Reviewed Nursing Family Hx Hypertension Physical Exam Vital Signs - First Documented 07/30/19 08:19 Temp 36.5 Pulse 86 Resp 16 B/P (MAP) 189/102 (131) Pulse Ox 74 O2 Delivery Nasal Cannula O2 Flow Rate 5.00 Capillary Refill : Less Than 3 Seconds Height: 6'1.00" Weight: 361lbs. 0.0oz. 163.579659ca; 50.00 BMI Method: General Appearance: WD/WN, moderate distress HEENT: PERRL/EOMI, pharynx normal Neck: full range of motion, supple Respiratory: respiratory distress, decreased breath sounds; No wheezing Cardiovascular: regular rate, rhythm, no murmur Gastrointestinal: non tender, soft Extremities: non-tender, pedal edema (3+ to above the knees bilateral) Neurologic/Psychiatric: alert, oriented x 3 Skin: normal color, warm/dry Progress/Results/Core Measures Suspected Sepsis Recent Fever Within 48 Hours: No Infection Criteria Present: Suspected New Infection New/Unexplained Altered Menta: No Sepsis Screen: No Definite Risk SIRS Temperature: Pulse: 85 Respiratory Rate: 24 Laboratory Tests 07/30/19 08:25: White Blood Count 9.4 Blood Pressure 189 /102 Mean: 131 Laboratory Tests 07/30/19 08:25: Creatinine 1.24, INR Comment 1.1, Platelet Count 200, Total Bilirubin 0.3 Results/Orders Lab Results Laboratory Tests Test 07/30/19 08:25 07/30/19 08:49 Range/Units White Blood Count 9.4 4.3-11.0 10^3/uL Red Blood Count 4.72 4.35-5.85 10^6/uL Hemoglobin 13.4 13.3-17.7 G/DL Hematocrit 41 40-54 % Mean Corpuscular Volume 86 80-99 FL Mean Corpuscular Hemoglobin 28 25-34 PG Mean Corpuscular Hemoglobin Concent 33 32-36 G/DL Red Cell Distribution Width 15.2 H 10.0-14.5 % Platelet Count 200 130-400 10^3/uL Mean Platelet Volume 11.3 H 7.4-10.4 FL Neutrophils (%) (Auto) 71 42-75 % Lymphocytes (%) (Auto) 20 12-44 % Monocytes (%) (Auto) 7 0-12 % Eosinophils (%) (Auto) 1 0-10 % Basophils (%) (Auto) 0 0-10 % Neutrophils # (Auto) 6.7 1.8-7.8 X 10^3 Lymphocytes # (Auto) 1.9 1.0-4.0 X 10^3 Monocytes # (Auto) 0.7 0.0-1.0 X 10^3 Eosinophils # (Auto) 0.1 0.0-0.3 10^3/uL Basophils # (Auto) 0.0 0.0-0.1 10^3/uL Prothrombin Time 14.1 12.2-14.7 SEC INR Comment 1.1 0.8-1.4 Activated Partial Thromboplast Time 30 24-35 SEC Sodium Level 140 135-145 MMOL/L Potassium Level 4.0 3.6-5.0 MMOL/L Chloride Level 106 98-107 MMOL/L Carbon Dioxide Level 21 21-32 MMOL/L Anion Gap 13 5-14 MMOL/L Blood Urea Nitrogen 18 7-18 MG/DL Creatinine 1.24 0.60-1.30 MG/DL Estimat Glomerular Filtration Rate 59 BUN/Creatinine Ratio 15 Glucose Level 160 H 70-105 MG/DL Calcium Level 9.5 8.5-10.1 MG/DL Corrected Calcium 9.4 8.5-10.1 MG/DL Magnesium Level 1.6 1.6-2.4 MG/DL Total Bilirubin 0.3 0.1-1.0 MG/DL Aspartate Amino Transf (AST/SGOT) 37 H 5-34 U/L Alanine Aminotransferase (ALT/SGPT) 62 H 0-55 U/L Alkaline Phosphatase 51 40-136 U/L Myoglobin 37.5 10.0-92.0 NG/ML Troponin I < 0.028 <0.028 NG/ML B-Type Natriuretic Peptide 113.6 H <100.0 PG/ML Total Protein 7.9 6.4-8.2 GM/DL Albumin 4.1 3.2-4.5 GM/DL Blood Gas Puncture Site LEFT RADIAL Blood Gas Patient Temperature 36.5 Arterial Blood pH 7.36 L 7.37-7.43 Arterial Blood Partial Pressure CO2 43 35-45 MMHG Arterial Blood Partial Pressure O2 81 79-93 MMHG Arterial Blood HCO3 24 23-27 MMOL/L Arterial Blood Total CO2 25.2 21.0-31.0 MMOL/L Arterial Blood Oxygen Saturation 96 94-100 % Arterial Blood Base Excess -0.9 -2.5-2.5 MMOL/L Nahun Test POSITIVE Blood Gas Ventilator Setting NO Blood Gas Inspired Oxygen 30% My Orders Orders - MIGUEL ROE MD Cbc With Automated Diff (07/30/19 08:29) Magnesium (07/30/19 08:29) Chest 1 View, Ap/Pa Only (07/30/19 08:29) Ekg Tracing (07/30/19 08:29) Comprehensive Metabolic Panel (07/30/19 08:29) Myoglobin Serum (07/30/19 08:29) Protime With Inr (07/30/19 08:29) Partial Thromboplastin Time (07/30/19 08:29) O2 (07/30/19 08:29) Monitor-Rhythm Ecg Trace Only (07/30/19 08:29) Lipid Panel (07/31/19 06:00) Ed Iv/Invasive Line Start (07/30/19 08:29) BNP (07/30/19 08:29) Troponin I (07/30/19 08:29) Aspirin Chewable Tablet (Baby Aspirin Ch (07/30/19 08:30) Rt Request For Service (07/30/19 08:29) Furosemide Injection (Lasix Injection) (07/30/19 08:29) Arterial Blood Gas (07/30/19 08:41) Arterial Blood Draw (07/30/19 08:49) Furosemide Injection (Lasix Injection) (07/30/19 10:05) Lactic Acid Analyzer (07/30/19 10:09) Blood Culture (07/30/19 10:09) Medications Given in ED Current Medications Medications Dose Ordered Sig/Rebecca Route Start Time Stop Time Status Last Admin Dose Admin Aspirin 324 mg ONCE ONCE PO 07/30/19 08:30 07/30/19 08:32 DC 07/30/19 08:58 324 MG Vital Signs/I&O 07/30/19 07/30/19 07/30/19 08:19 08:19 08:36 Temp 36.5 Pulse 86 85 Resp 16 24 B/P (MAP) 189/102 (131) Pulse Ox 74 96 O2 Delivery Nasal Cannula Room Air O2 Flow Rate 5.00 30.00 Capillary Refill : Less Than 3 Seconds Blood Pressure Mean: 131 Progress Note : Progress Note Seen and evaluated on arrival. Placed on high flow nasal cannula O2. Ultimately this was switched to BiPAP and doing much better. IV, labs, EKG and chest x-ray ordered. Lasix 40 mg IV and ASA 324 mg by mouth given. Monitor patient. 0900: Dr. Harper has seen the patient in the ER and accepts patient for admission pending labs with her quest for consult cardiology. 1005: I did discuss the case with Dr. Zhou and he agrees with current therapy but is considering that there may be long issues including restrictive lung disease given his low BNP. Chest x-ray does that the pattern of heart failure though. He is still doing much better on BiPAP. We will do an additional dose of Lasix 40 mg IV and he has requested consult with Dr. Simms which will be placed. 1010: I did discuss the case with Dr. Simms and he accepts patient for consult. Both cardiology and pulmonology are requesting 2-D echocardiogram which is been ordered. All findings and concerns discussed with patient and family who agree with plan. We will add lactic acid and blood cultures now just in case there is underlying infection. I do not find any indication of infection at this time and lactic acid will be elevated which is likely secondary to the hypoxia and not a result of infection. Overall patient doing much better. Admit, inpatient status. ECG Initial ECG Impression Date: Jul 30, 2019 Initial ECG Impression Time: 08:27 Initial ECG Rate: 84 Initial ECG Rhythm: Normal Sinus Comment Sinus rhythm with normal axis. No evidence of ST elevation DE. PVC noted. Change from previous which was atrial flutter on 11/28/18. Interpreted by me. Diagnostic Imaging Diagonstic Imaging: Xray Plain Films/CT/US/NM/MRI: chest Comments [facility] [place], [place] NAME: PO GOLDEN [facility] REC#: [id number] PT STATUS: REG ER : 1955 PHYSICIAN: MIGUEL ROE MD ADMIT DATE: 07/30/19/ER Draft Date of Exam:07/30/19 CHEST 1 VIEW, AP/PA ONLY EXAMINATION: Chest radiograph, portable AP view. DATE: 07/30/2019 9:14 AM. INDICATION: 64-year-old male, shortness of breath. COMPARISON: March 07, 2018. FINDINGS: The heart is right at the upper limits of normal in size. There is no identified pneumothorax. There is no large pleural effusion. There are mildly prominent interstitial markings. There do appear to be Ace B lines present. IMPRESSION: The heart size is right at the upper limits of normal. There are bilateral interstitial opacities with probable Ace B lines, most suggestive of pulmonary interstitial edema. Dictated on workstation # [id number] Dict: 07/30/19 0947 Trans: 07/30/19 0954 [id number] Interpreted by: MARY ADKINS MD Electronically signed by: Departure Communication (Admissions) Time/Spoke to Admitting Phy: 09:00 Time/Spoke to Consulting Phy: 10:05 Impression Primary Impression: Acute heart failure Qualified Codes: I50.9 - Heart failure, unspecified Additional Impression: Hypoxia Disposition: ADMITTED INPATIENT Condition: Stable Admissions Decision to Admit Reason: Admit from ER (General) Decision to Admit/Date: Jul 30, 2019 Time/Decision to Admit Time: 09:00 Departure-Patient Inst. Referrals: MARCIE HARPER DO (PCP/Family) Primary Care Physician MIGUEL ROE MD Jul 30, 2019 10:26
--- NOTE | 2019-07-30 10:57 | NUR ---
RT NOTIFIED OF BEING READY FOR TRANSPORT.
[2019-07-30] MEDS ORDERED: CATHETER FLUSH 10 ML SYR IV PRN (12:15)
[2019-07-30] MEDS ORDERED: FURO40TA4 PO (12:38)
[2019-07-30] MEDS ORDERED: DILT180C85 PO (12:38)
[2019-07-30] MEDS ORDERED: MULT1TAB69 PO (12:38)
[2019-07-30] MEDS ORDERED: ERGO50006 PO (12:38)
--- NOTE | 2019-07-30 12:45 | Consultation-Cardiology ---
HPI-Cardiology Cardiology Consultation: Date of Consultation 07/30/19 Date of Admission Attending Physician Kayleigh Fox DO Admitting Physician Kayleigh Fox DO Consulting Physician Jacy ZHOU MD HPI: Time Seen by a Provider: 12:30 Chief Complaint: Shortness of breath This is a 63-year-old gentleman who is a patient of Dr. Fox. He presents with significant acute onset shortness of breath. The patient has history of obstructive sleep apnea and is on CPAP at night. He became significantly short of breath which continues to worsen. In the ER his oxygen saturation was 70 percent on room air. He has gained significant amount of weight and significant swelling of bilateral lower extremity. He denies any chest pain. Previously I first saw as an inpatient consultation on 03/08/2018 for tachycardia. He was found to have typical atrial flutter with 2-1 AV block. He has history of diabetes and hypertension. Transesophageal echocardiogram was done on 03/08/2018 which showed normal LV size and function with no thrombus in the left atrium or left atrial appendage. Moderate mitral regurgitation was noted. Successful cardioversion was performed which converted him to sinus rhythm. However the patient went back into atrial fibrillation a few hours later. He was started on amiodarone for one day and repeat cardioversion was done by Dr. Cox which was briefly successful and patient went back into atrial fibrillation. He was then started on Cardizem. Amiodarone and Eliquis was continued. Patient was discharged in atrial fibrillation with controlled ventricular rate at that point in time. Patient has history of obstructive sleep apnea and is on CPAP therapy. He also has morbid obesity. Patient had typical atrial flutter ablation successfully on 05/13/2018. No further episodes of typical atrial flutter. However patient continues to have paroxysmal atrial fibrillation with occasional RVR. He does have history of diabetes, hypertension, morbid obesity, sinus node dysfunction. Review of Systems-Cardiology Review of Systems Constitutional: As described under HPI; No As described under HPI, No no symptoms reported, No chills, No fever, No lightheadedness Eyes: No As described under HPI, No no symptoms reported, No blindness, No blurred vision, No contact lenses, No drainage, No decreased acuity, No foreign body sensation, No pain, No vision change Ears/Nose/Throat: No As described under HPI, No no symptoms reported, No chronic hearing loss, No ear discharge, No ear pain, No nasal drainage, No ulcerations Respiratory: No no symptoms reported; As described under HPI; No As described under HPI, No cough; orthopnea; No shortness of breath, No SOB with excertion Cardiovascular: No no symptoms reported; As described under HPI; No As described under HPI, No chest pain, No edema, No irregular heart rate, No lightheadedness, No palpitations Gastrointestinal: No no symptoms reported, No As described under HPI, No abdomen distended, No abdominal pain, No blood streaked bowels, No constipation, No diarrhea, No nausea, No vomiting, No stool coloration changes Genitourinary: No As described under HPI, No burning, No dysuria, No discharge, No frequency, No flank pain, No hematuria, No urgency Skin: No rash, No skin related problems, No ulcerations Psychiatric/Neurological: No anxiety, No depression, No seizure, No focal weakness, No syncope Hematologic: No bleeding abnormalities All Other Systems Reviewed Negative Unless Noted: Yes [id number] Hx Patient Social History Alcohol Use: Denies Use Recreational Drug Use: No Type Used: Cigarettes Recent Foreign Travel: No Recent Infectious Disease Expo: No Immunizations Up To Date Date of Pneumonia Vaccine: Jul 30, 2015 Date of Influenza Vaccine: Mar 28, 2016 Past Medical History PMH As described under Assessment. Allergies and Home Medications Allergies Coded Allergies: NKANo Known Allergies (Verified Allergy, Unknown, 03/15/07) Home Medications Amlodipine/Benazepril 1 Cap Cap, 1 CAP PO DAILY, (Reported) Apixaban 5 Mg Tablet, 5 MG PO BID, (Reported) Cyanocobalamin (Vitamin B-12) 1,000 Mcg Tablet, 1,000 MCG PO DAILY, (Reported) Diltiazem HCl 180 Mg Cap.er.24h, 180 MG PO DAILY, (Reported) Dronedarone HCl 400 Mg Tablet, 400 MG PO BID, (Reported) LAST FILLED #60 05-14- Ergocalciferol (Vitamin D2) 1,250 Mcg Capsule, 1,250 MCG PO Mo, (Reported) Fenofibrate Nanocrystallized 145 Mg Tablet, 145 MG PO DAILY, (Reported) Furosemide 40 Mg Tablet, 80 MG PO DAILY, (Reported) TAKES 2 (40MG) TABLETS Glimepiride 2 Mg Tablet, 2 MG PO BID, (Reported) Hydralazine HCl 50 Mg Tablet, 50 MG PO TID, (Reported) Insulin Aspart 300 Units/3 Ml Solution, 20 UNITS SC TIDAC, (Reported) Insulin Glargine,Hum.rec.anlog 100 Unit/1 Ml Insuln.pen, 30 UNITS SC HS, (Reported) Krill Oil 500 Mg Capsule, 500 MG PO DAILY, (Reported) Metformin HCl 1,000 Mg Tablet, 1,000 MG PO BID WITH MEALS, (Reported) Metoprolol Succinate 50 Mg Tab.er.24h, 50 MG PO DAILY, (Reported) Minoxidil 2.5 Mg Tablet, 2.5 MG PO DAILY, (Reported) Multivitamin 1 Each Tab.chew, 1 TAB.CHEW PO DAILY, (Reported) Potassium Chloride 10 Meq Tablet.er, 10 MEQ PO DAILY PRN for CRAMPS, (Reported) HAS NOT TAKEN, HAS ONLY IF NEEDED Simvastatin 20 Mg Tablet, 20 MG PO DAILY, (Reported) Ubidecarenone/Vit E Acetate 1 Each Capsule, 100 MG PO DAILY, (Reported) Patient Home Medication List Home Medication List Reviewed: Yes Physical Exam-Cardiology Physical Exam Vital Signs/I&O 07/30/19 07/30/19 07/30/19 07/30/19 08:19 08:19 08:36 11:40 Temp 36.5 Pulse 86 85 68 Resp 16 24 14 B/P (MAP) 189/102 (131) 123/70 Pulse Ox 74 96 99 O2 Delivery Nasal Cannula Room Air NIV Bilevel O2 Flow Rate 5.00 30.00 07/30/19 07/30/19 07/30/19 11:49 11:58 12:00 Temp 36.4 Pulse 67 79 Resp 18 O2 Flow Rate 30.00 Capillary Refill : Less Than 3 Seconds Constitutional: appears stated age; No apparent distress; well-developed, well- nourished HEENT: PERRL; No discharge; hearing is well preserved, oral hygience is good; No ulceration, No xanthelasmas are seen Neck: No carotid bruit; carotid pulses are 2 + bilaterally Respiratory: accessory muscle use, respiratory distress, chest is bilaterally symmetric, other (course breathing however no wheezing.) Cardiovascular: regular rate-rhythm, tachycardia, S1 and S2 Gastrointestinal: soft, audible bowel sounds; No spleenomegaly Rectal: deferred Extremities: normal range of motion, non-tender, normal inspection, pedal edema; No clubbing, No cyanosis, No significant edema Neurologic/Psychiatric: no motor/sensory deficits, alert, normal mood/affect, oriented x 3, power is 5/5 both on sides Skin: normal color; No rash, No ulcerations Data Review Labs Laboratory Tests 07/30/19 08:25: White Blood Count 9.4, Red Blood Count 4.72, Hemoglobin 13.4, Hematocrit 41, Mean Corpuscular Volume 86, Mean Corpuscular Hemoglobin 28, Mean Corpuscular Hemoglobin Concent 33, Red Cell Distribution Width 15.2H, Platelet Count 200, Mean Platelet Volume 11.3H, Neutrophils (%) (Auto) 71, Lymphocytes (%) (Auto) 20, Monocytes (%) (Auto) 7, Eosinophils (%) (Auto) 1, Basophils (%) (Auto) 0, Neutrophils # (Auto) 6.7, Lymphocytes # (Auto) 1.9, Monocytes # (Auto) 0.7, Eosinophils # (Auto) 0.1, Basophils # (Auto) 0.0, Prothrombin Time 14.1, INR Comment 1.1, Activated Partial Thromboplast Time 30, Sodium Level 140, Potassium Level 4.0, Chloride Level 106, Carbon Dioxide Level 21, Anion Gap 13, Blood Urea Nitrogen 18, Creatinine 1.24, Estimat Glomerular Filtration Rate 59, BUN/Creatinine Ratio 15, Glucose Level 160H, Calcium Level 9.5, Corrected Calcium 9.4, Magnesium Level 1.6, Total Bilirubin 0.3, Aspartate Amino Transf (AST/SGOT) 37H, Alanine Aminotransferase (ALT/SGPT) 62H, Alkaline Phosphatase 51, Myoglobin 37.5, Troponin I < 0.028, B-Type Natriuretic Peptide 113.6H, Total Protein 7.9, Albumin 4.1 07/30/19 08:49: Blood Gas Puncture Site LEFT RADIAL, Blood Gas Patient Temperature 36.5, Arterial Blood pH 7.36L, Arterial Blood Partial Pressure CO2 43, Arterial Blood Partial Pressure O2 81, Arterial Blood HCO3 24, Arterial Blood Total CO2 25.2, Arterial Blood Oxygen Saturation 96, Arterial Blood Base Excess -0.9, Nahun Test POSITIVE, Blood Gas Ventilator Setting NO, Blood Gas Inspired Oxygen 30% 07/30/19 11:05: Lactic Acid Level 1.84 07/30/19 12:29: Glucometer 149H ECG Impression ECG Initial ECG Rhythm: S.Tach A/P-Cardiology Assessment/Admission Diagnosis Acute respiratory failure, Acute congestive heart failure, Paroxysmal atrial fibrillation, History of typical atrial flutter, Obstructive sleep apnea on CPAP, Diabetes, Hypertension, Morbid obesity, History of sinus node dysfunction. Plan Acute respiratory failure, likely multifactorial. Improved significantly with BiPAP therapy as well as Lasix IV. Pulmonary consultation to rule out other causes of significant orthopnea. Acute congestive heart failure, BNP not significantly elevated. Respiratory failure is out of proportion to BNP. However chest x-ray shows bilateral interstitial edema and clinically the patient may have acute congestive heart failure. We will treat with IV Lasix. Echocardiogram. Paroxysmal atrial fibrillation, currently in sinus rhythm. And is on Eliquis. History of typical atrial flutter, atrial flutter ablation successfully done on 05/13/2018. No further episode of atrial flutter. Obstructive sleep apnea on CPAP, Diabetes, previously on insulin. Defer to Dr. Fox. Hypertension, continue outpatient medical therapy. Morbid obesity, History of sinus node dysfunction. No acute issues. Thank you for your consultation. Please call me if you have any questions. Mckenna Zhou MD, FACP, FACC, FSCAI, FHRS, CCDS Interventional Cardiology Cardiac Electrophysiology Vascular Medicine and Endovascular Interventions Jacy ZHOU MD Jul 30, 2019 12:45
[2019-07-30] MEDS ORDERED: FLU QUADRIvalent (5+ YOA) 2019-2020 (AFLURIA) 0.5 ML IM ONE (13:00)
[2019-07-30] MEDS ORDERED: KRIL500C PO (13:04)
[2019-07-30] MEDS ORDERED: CYAN-41 PO (13:04)
[2019-07-30] MEDS ORDERED: UBID1CAP53 PO (13:04)
--- NOTE | 2019-07-30 13:07 | History & Physical-Hospitalist ---
OLGA ANTONY,MED STUDENT 07/30/19 1307: History of Present Illness HPI/Chief Complaint Pt arrives to [facility] ED 07/30/2019 with CC of shortness of breath, cough. States he was getting around this morning after working an overnight shift and suddenly experienced SOB. Denies any fever, chills, headache, chest pain, abdominal pain. Pt has ORA and is compliant with CPAP nightly regimen. Performed assessment in ER, BiPAP in place, 30L. Pt still SOB, struggles to speak through mask and over BiPAP machine. Accompanied by in son in room. States cough and LE edema have been slowly getting worse over about a month but SOB is new. Both SOB and cough improved with respiratory support. Past med. hx notable for insulin-dependent T2DM. No other complaints. Source: patient Exam Limitations: no limitations Date Seen 07/30/19 Time Seen by a Provider: 09:06 Attending Physician Kayleigh Harper DO PCP Kayleigh Harper DO Referring Physician Date of Admission Jul 30, 2019 at 10:20 Home Medications & Allergies Home Medications Reviewed patient Home Medication Reconciliation performed by pharmacy medication reconciliations senior controls technician and/or nursing. Patients Allergies have been reviewed. Allergies Allergies Coded Allergies NKANo Known Allergies (Verified Allergy, Unknown, 03/15/07) Past Bvywobs-Ubbvcy-Xovtyn Hx Past Med/Social Hx: Reviewed Nursing Past Med/Soc Hx Patient Social History Alcohol Use: Denies Use Recreational Drug Use: No Type Used: Cigarettes Recent Foreign Travel: No Contact w/other who traveled: No Recent Hopitalizations: No Recent Infectious Disease Expo: No Immunizations Up To Date Pediatric: No Date of Pneumonia Vaccine: Jul 30, 2015 Date of Influenza Vaccine: Mar 28, 2016 Seasonal Allergies Seasonal Allergies: Yes Past Medical History Respiratory: Sleep Apnea Currently Using CPAP: Yes Currently Using BIPAP: No Cardiac: Atrial Fibrillation, High Cholesterol, Hypertension Neurological: Concussion Musculoskeletal: Chronic Back Pain Endocrine: Diabetes, Insulin dep Loss of Vision: Denies Hearing Impairment: Denies History of Blood Disorders: No Adverse Reaction to Blood Hogan: No Family History Reviewed Nursing Family Hx Hypertension Review of Systems Constitutional: No chills, No fever EENTM: No hearing loss, No ear pain, No eye pain, No vision loss, No mouth pain, No nose pain, No throat pain Respiratory: see HPI, cough, dyspnea on exertion, short of breath Cardiovascular: No chest pain; edema; No Hx of Intervention, No palpitations Gastrointestinal: No abdominal pain, No constipation, No diarrhea, No dysphagia, No nausea, No vomiting Genitourinary: frequency (on oral lasix ); No incontinence, No pain Musculoskeletal: No back pain, No joint pain Skin: No lesions, No lumps, No rash Psychiatric/Neurological: Denies Anxiety, Denies Depressed; Headache Physical Exam Physical Exam Vital Signs Vital Signs - First Documented 07/30/19 08:19 Temp 36.5 Pulse 86 Resp 16 B/P (MAP) 189/102 (131) Pulse Ox 74 O2 Delivery Nasal Cannula O2 Flow Rate 5.00 Capillary Refill : Less Than 3 Seconds Height, Weight, BMI Height: 6'1.00" Weight: 361lbs. 0.0oz. 163.375193st; 50.00 BMI Method: General Appearance: No Apparent Distress, WD/WN Eyes: Bilateral Eye Normal Inspection, Bilateral Eye PERRL, Bilateral Eye EOMI HEENT: TMs Normal, Other (flushed face ) Neck: Non Tender, Supple; No Thyromegaly Respiratory: Chest Non Tender, Crackles, Decreased Breath Sounds (body habitus ), Respiratory Distress (much improved with breathing treatments ), Wheezing (diffuse ) Cardiovascular: Regular Rate, Rhythm, No Gallop, No Murmur, Normal Peripheral Pulses Gastrointestinal: Non Tender, Soft, Distended (his norm ) Back: No CVA Tenderness, No Vertebral Tenderness Extremity: No Calf Tenderness, Pedal Edema (+3 pitting ) Neurologic/Psychiatric: Alert, Oriented x3 Skin: Normal Color (except as described above ), Warm/Dry, Other Lymphatic: No Adenopathy (supra/infraclavicular, AP cervical ) Results Results/Procedures Labs Laboratory Tests 07/30/19 08:25 Patient resulted labs reviewed. Assessment/Plan Admission Diagnosis Acute heart failure Admission Status: Inpatient Order (span 2 midnights) Reason for Inpatient Admission: Acute exacerbation of heart failure requiring IV lasix therapy, respiratory support Assessment and Plan Assessment Acute heart failure respiratory distress Pulmonary edema Hypertension Insulin dependent T2DM Plan Continue respiratory support 40mg IV lasix BID Serial CXR, CBC, CMP, BNP KAYLEIGH HARPER DO 07/30/192043: History of Present Illness HPI/Chief Complaint CC: SOB HPI: This is a 64yoWM clinic Pt of [facility] for the past 16 years, PMH of atrial flutter s/p ablation X2, with diastolic dysfunction, ORA, and DM- insulin dependent, who presented to the ER with SOB, 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 He was placed on BiPAP, given lasix IV, Dr. Zhou was consulted and has been placed in the ICU for close monitoring. We will review all of his home medication and restart a few if possible. Past Brbyitc-Krordw-Exdhun Hx Past Med/Social Hx: Reviewed Nursing Past Med/Soc Hx, Reviewed and Corrections made Patient Social History Marrital Status: Employed/Student: employed Alcohol Use: Denies Use Smoking Status: Never a Smoker Past Medical History Respiratory: Sleep Apnea Cardiac: Atrial Fibrillation, Chronic Edema/Swelling, High Cholesterol, Hypertension Endocrine: Diabetes, Insulin dep Review of Systems Constitutional: see HPI Respiratory: dyspnea on exertion, short of breath Physical Exam Physical Exam General Appearance: WD/WN, Anxious, Chronically ill, Mild Distress Eyes: Right Eye Normal Inspection, Right Eye PERRL HEENT: PERRL/EOMI, Normal ENT Inspection, Pharynx Normal, Moist Mucous Membranes Neck: Full Range of Motion, Normal Inspection, Non Tender Respiratory: Chest Non Tender, Accessory Muscle Use, Crackles, Decreased Breath Sounds (body habitus ), Rales, Respiratory Distress (much improved with breath ing treatments ), Wheezing (diffuse ) Cardiovascular: No Edema, No Gallop, No JVD, No Murmur, Normal Peripheral Pulses, Tachycardia Gastrointestinal: Normal Bowel Sounds, No Organomegaly, No Pulsatile Mass, Non Tender, Soft Back: Normal Inspection, No CVA Tenderness, No Vertebral Tenderness Extremity: Normal Capillary Refill, Normal Inspection, Normal Range of Motion, Non Tender, No Calf Tenderness, No Pedal Edema Neurologic/Psychiatric: Alert, Oriented x3, No Motor/Sensory Deficits, Normal Mood/Affect Skin: Normal Color, Warm/Dry Lymphatic: No Adenopathy Assessment/Plan Admission Diagnosis Assessment: Respiratory distress requiring biPAP Atrial flutter s/p ablation Dr Zhou DM insulin dependence HTN HLP Edema chronic ORA faithful on CPAP Plan: biPAP IV Lasix Home meds Cardiology and Pulmonology evaluation Admission Status: Inpatient Order (span 2 midnights) Reason for Inpatient Admission: IV lasix for AECHF requiring bipap Diagnosis/Problems Diagnosis/Problems (1) Acute heart failure Status: Acute Qualifiers: Heart failure type: unspecified Qualified Codes: I50.9 - Heart failure, unspecified (2) Hypoxia Status: Acute (3) Hypertension Status: Chronic (4) Diabetes mellitus Status: Chronic Supervisory-Addendum Brief Verification & Attestation Participated in pt care: history, MDM, physical Personally performed: exam, history, MDM, supervision of care Care discussed with: Medical Student Procedures: n/a Results interpretation: Verified all documentation Verification and Attestation of Medical Student E/M Service A medical student performed and documented this service in my presence. I reviewed and verified all information documented by the medical student and made modifications to such information, when appropriate. I personally performed the physical exam and medical decision making. Kayleigh Harper, Jul 30, 2019,20:44 OLGA ANTONY,MED STUDENT Jul 30, 2019 13:07 KAYLEIGH HARPER DO Jul 30, 2019 20:44
[2019-07-30] MEDS ORDERED: MULT1TAB60 PO (13:16)
[2019-07-30] MEDS ORDERED: POTA10TA PO (13:17)
--- NOTE | 2019-07-30 13:17 | NUR ---
PATIENT HAS A LIST OF HIS MEDICATIONS. I WENT OVER THAT LIST WELL COMPARING IT WITH THE EXT MED HX. HE STATES HE DOES NOT TAKE THE POTASSIUM, HE HAS IT PRESCRIBED BUT WAS TOLD ONLY TO TAKE IF NEEDED. HE STATES HE WOULD TAKE IT IF HE WAS HAVING CRAMPS BUT HE HAS NOT TAKE ANY YET. I LEFT IT ON THE MED REC FOR NOW PRN. ACCORDING TO THE EXT MED HX MULTAQ HAS NOT BEEN FILLED SINCE FEBRUARY HOWEVER I CALLED [facility] AND THEY STATE IT WAS LAST FILLED #60 05-14-19 - PATIENT STATES HE DOES TAKE THIS EVERYDAY BUT [facility] FILLED IT BEFORE HE WAS OUT BY [facility] THEREFORE HE HAD A SUPPLY BUILT UP. OTC MEDS: KRILL OIL CO Q 10 B12 MTV CHEW
--- NOTE | 2019-07-30 14:18 | Pulmonary Consultation ---
History of Present Illness History of Present Illness Date Seen by Provider: Jul 30, 2019 Time Seen by Provider: 14:11 Date of Admission History of Present Illness 64yo with hx of ORA treated with CPAP therapy and DM presented tod ED secondary to sudden worsening SOB, productive cough. upon ED admission pt was found to be in acute respiratory distress and was placed on BipAP. I am consulted for pulmonary/CC management. Allergies and Home Medications Allergies Coded Allergies: NKANo Known Allergies (Verified Allergy, Unknown, 03/15/07) Home Medications Amlodipine/Benazepril 1 Cap Cap, 1 CAP PO DAILY, (Reported) Apixaban 5 Mg Tablet, 5 MG PO BID, (Reported) Cyanocobalamin (Vitamin B-12) 1,000 Mcg Tablet, 1,000 MCG PO DAILY, (Reported) Diltiazem HCl 180 Mg Cap.er.24h, 180 MG PO DAILY, (Reported) Dronedarone HCl 400 Mg Tablet, 400 MG PO BID, (Reported) LAST FILLED #60 10-30-19 Ergocalciferol (Vitamin D2) 1,250 Mcg Capsule, 1,250 MCG PO Mo, (Reported) Fenofibrate Nanocrystallized 145 Mg Tablet, 145 MG PO DAILY, (Reported) Furosemide 40 Mg Tablet, 80 MG PO DAILY, (Reported) TAKES 2 (40MG) TABLETS Glimepiride 2 Mg Tablet, 2 MG PO BID, (Reported) Hydralazine HCl 50 Mg Tablet, 50 MG PO TID, (Reported) Insulin Aspart 300 Units/3 Ml Solution, 20 UNITS SC TIDAC, (Reported) Insulin Glargine,Hum.rec.anlog 100 Unit/1 Ml Insuln.pen, 30 UNITS SC HS, (Reported) Krill Oil 500 Mg Capsule, 500 MG PO DAILY, (Reported) Metformin HCl 1,000 Mg Tablet, 1,000 MG PO BID WITH MEALS, (Reported) Metoprolol Succinate 50 Mg Tab.er.24h, 50 MG PO DAILY, (Reported) Minoxidil 2.5 Mg Tablet, 2.5 MG PO DAILY, (Reported) Multivitamin 1 Each Tab.chew, 1 TAB.CHEW PO DAILY, (Reported) Potassium Chloride 10 Meq Tablet.er, 10 MEQ PO DAILY PRN for CRAMPS, (Reported) HAS NOT TAKEN, HAS ONLY IF NEEDED Simvastatin 20 Mg Tablet, 20 MG PO DAILY, (Reported) Ubidecarenone/Vit E Acetate 1 Each Capsule, 100 MG PO DAILY, (Reported) Past Qshmpgm-Fzmxvn-Xewrka Hx Past Med/Social Hx: Reviewed Nursing Past Med/Soc Hx Patient Social History Alcohol Use: Denies Use Recreational Drug Use: No Type Used: Cigarettes Recent Foreign Travel: No Contact w/Someone Who Travel: No Recent Infectious Disease Expo: No Recent Hopitalizations: No Immunizations Up To Date PED Vaccines UTD: No Date of Pneumonia Vaccine: Jul 30, 2015 Date of Influenza Vaccine: Mar 28, 2016 Seasonal Allergies Seasonal Allergies: Yes Past Medical History Surgeries: Yes (ep with ablation) Respiratory: Yes Sleep Apnea Currently Using CPAP: Yes Currently Using BIPAP: No Cardiac: Yes (typical atrial flutter) Atrial Fibrillation, High Cholesterol, Hypertension Neurological: Yes Concussion Genitourinary: No Gastrointestinal: No Musculoskeletal: No Chronic Back Pain Endocrine: Yes Diabetes, Insulin dep HEENT: No Loss of Vision: Denies Hearing Impairment: Denies Cancer: No Psychosocial: No Integumentary: No Blood Disorders: No Adverse Reaction/Blood Tranf: No Family Medical History Reviewed Nursing Family Hx Hypertension Review of Systems Time Seen by Provider: 14:14 Constitutional: Weakness, Malaise; No: Fever, Chills, Sweats, Other Eyes: No: Pain, Vision change, Conjunctivae inflammation, Eyelid inflammation, Other, Redness ENT: Nose congestion; No: Ear pain, Ear discharge, Nose pain, Nose discharge, Mouth pain, Mouth swelling, Throat pain, Throat swelling, Other Respiratory: Cough, Dry, Shortness of breath, SOB with excertion, Wheezing Cardiovascular: Paroxysmal Noc. Dyspnea; No: Chest Pain, Palpitations, Orthopnea, Edema, Lt Headedness, Other Gastrointestinal: No: Nausea, Vomiting, Abdominal Pain, Diarrhea, Constipation, Melena, Hematochezia, Other Sepsis Event Evaluation Height, Weight, BMI Height: 6'1.00" Weight: 361lbs. 0.0oz. 163.926888jh; 52.30 BMI Method: Exam Exam Vital Signs Date Time Temp Pulse Resp B/P (MAP) Pulse Ox O2 Delivery O2 Flow Rate FiO2 07/30/19 12:00 36.4 07/30/19 12:00 NIV Bilevel 30 07/30/19 11:58 79 07/30/19 11:49 67 18 30.00 07/30/19 11:40 68 14 123/70 99 NIV Bilevel 07/30/19 08:36 85 24 96 30.00 07/30/19 08:19 36.5 86 16 189/102 (131) 74 Room Air 07/30/19 08:19 Nasal Cannula 5.00 Height & Weight Height: 6'1.00" Weight: 361lbs. 0.0oz. 163.435667zw; 52.30 BMI Method: General Appearance: WD/WN, Anxious, Moderate Distress, Obese HEENT: TMs Normal, Other (flushed face ) Neck: Non Tender, Supple; No Thyromegaly Respiratory: Chest Non Tender, Crackles, Decreased Breath Sounds (body habitus ), Respiratory Distress (much improved with breathing treatments ), Wheezing (diffuse ) Cardiovascular: Regular Rate, Rhythm, No Gallop, No Murmur, Normal Peripheral Pulses Capillary Refill: Less Than 3 Seconds Gastrointestinal: non tender, soft Extremity: No Calf Tenderness, Pedal Edema (+3 pitting ) Neurologic/Psychiatric: Alert, Oriented x3 Skin: Normal Color (except as described above ), Warm/Dry, Other Lymphatic: No Adenopathy (supra/infraclavicular, AP cervical ) Results Lab Laboratory Tests 07/30/19 08:25 Assessment/Plan Assessment/Plan Acute respiratory failure -Currently requiring BiPAP Acute CHF -Cardiology following -Lasix ORA -Uses CPAP at home DM Afib hx -Eliquis Hypertension, Morbid obesity, FLORY VELA DO Jul 30, 2019 14:18
[2019-07-30] MEDS: inSUlin ASPART (NovoLOG) 1 UNIT/0.01 ML (CHARGE PER UNIT) SC SCH ×3 (14:29→20:09)
[2019-07-30] MEDS: NS IV 1000 ML 1,000 ML IV SCH (14:29)
[2019-07-30] MEDS ORDERED: RT-ALBUTEROL/IPRATROPIUM 3 ML (DUONEB) VIAL INH PRN (15:00)
--- NOTE | 2019-07-30 15:00 | NUR ---
patient was supposed to have a Mat Protocol ordered, but it was never put in. RT spoke with Dr Simms and he gave orders for patient to get Duoneb TID and Q2H PRN ordered
[2019-07-30] MEDS: APIXABAN 5 MG (ELIQUIS) TABLET PO SCH (20:22)
[2019-07-30] MEDS: RT-ALBUTEROL/IPRATROPIUM 3 ML (DUONEB) VIAL INH SCH (22:25)
[2019-07-31] VITALS (7 sets, daily range): BP systolic 100–127; BP diastolic 51–91
[2019-07-31 03:35] LABS: BASOPHILS % (AUTO) 0 % (0-10); EOSINOPHILS # (AUTO) 0.1 10^3/uL (0.0-0.3); EOSINOPHILS % (AUTO) 1 % (0-10); HEMATOCRIT 36 % (40-54); HEMOGLOBIN 11.8 G/DL (13.3-17.7); LYMPHOCYTES # (AUTO) 1.2 X 10^3 (1.0-4.0); LYMPHOCYTES % (AUTO) 19 % (12-44); MEAN CORPUSCULAR HEMOGLOBIN 28 PG (25-34); MEAN CORPUSCULAR HGB CONC 33 G/DL (32-36); MEAN CORPUSCULAR VOLUME 86 FL (80-99); MEAN PLATELET VOLUME 11.5 FL (7.4-10.4); MONOCYTES # (AUTO) 0.4 X 10^3 (0.0-1.0); MONOCYTES % (AUTO) 6 % (0-12); NEUTROPHILS # (AUTO) 4.6 X 10^3 (1.8-7.8); NEUTROPHILS % (AUTO) 73 % (42-75); PLATELET COUNT 175 10^3/uL (130-400); RED CELL DISTRIBUTION WIDTH 14.9 % (10.0-14.5); WHITE BLOOD COUNT 6.3 10^3/uL (4.3-11.0)
[2019-07-31 04:00] LABS: CHOLESTEROL 137 MG/DL (< 200); HDL CHOLESTEROL 35 MG/DL (40-60); TRIGLYCERIDES 194 MG/DL (<150); VLDL CHOLESTEROL 39 MG/DL (5-40)
[2019-07-31 04:05] LABS: ALANINE AMINOTRANSFERASE 46 U/L (0-55); ALBUMIN 3.8 GM/DL (3.2-4.5); ALKALINE PHOSPHATASE 34 U/L (40-136); BILIRUBIN,TOTAL 0.4 MG/DL (0.1-1.0); BUN/CREATININE RATIO 14; CARBON DIOXIDE 24 MMOL/L (21-32); CHLORIDE 106 MMOL/L (98-107); CREATININE SERUM 1.19 MG/DL (0.60-1.30); GFR ESTIMATED > 60; GLUCOSE 77 MG/DL (70-105); POTASSIUM 3.8 MMOL/L (3.6-5.0); SODIUM 143 MMOL/L (135-145)
[2019-07-31] MEDS: inSUlin ASPART (NovoLOG) 1 UNIT/0.01 ML (CHARGE PER UNIT) SC SCH ×7 (06:40→19:35)
--- NOTE | 2019-07-31 07:12 | Pulmonary Progress Note ---
Subjective Time Seen by a Provider: 07:12 Subjective/Events-last exam Currently on BiPAP Sepsis Event Evaluation Height, Weight, BMI Height: 6'1.00" Weight: 361lbs. 0.0oz. 163.332840fa; 52.30 BMI Method: Focused Exam Lactate Level 07/30/19 11:05: Lactic Acid Level 1.84 Exam Exam Vital Signs Date Time Temp Pulse Resp B/P (MAP) Pulse Ox O2 Delivery O2 Flow Rate FiO2 07/31/19 04:00 94 Room Air 07/31/19 04:00 122 20 121/89 (100) 99 NIV Bilevel 30.00 07/31/19 04:00 36.8 07/31/19 02:25 121 21 30.00 07/31/19 02:25 NIV Bilevel 28.00 07/31/19 01:00 121 07/31/19 00:00 36.8 07/31/19 00:00 94 Room Air 07/31/19 00:00 78 21 115/51 (72) 94 NIV Bilevel 30.00 07/30/19 23:06 114 17 30.00 07/30/19 23:06 NIV Bilevel 30.00 07/30/19 22:25 94 Room Air 07/30/19 22:24 Room Air 07/30/19 21:00 95 Room Air 07/30/19 20:00 99 27 115/86 (96) 94 Room Air 07/30/19 20:00 94 Room Air 07/30/19 20:00 35.6 07/30/19 19:00 95 07/30/19 18:00 79 16 131/97 (108) 94 Room Air 30.00 07/30/19 17:59 90 07/30/19 17:00 125 29 128/89 (102) 93 Room Air 30.00 07/30/19 16:00 35.8 07/30/19 16:00 NIV Bilevel 30 07/30/19 16:00 124 14 117/84 (95) 98 NIV Bilevel 30.00 07/30/19 15:26 124 26 99 30.00 07/30/19 15:00 122 12 117/84 (95) 98 NIV Bilevel 30.00 07/30/19 14:00 99 11 114/85 (95) 98 NIV Bilevel 30.00 07/30/19 13:00 95 14 99/60 (73) 96 NIV Bilevel 30.00 07/30/19 12:00 NIV Bilevel 30 07/30/19 12:00 36.4 07/30/19 12:00 NIV Bilevel 30 07/30/19 11:58 79 07/30/19 11:49 67 18 30.00 07/30/19 11:45 121/91 (101) NIV Bilevel 30.00 07/30/19 11:40 68 14 123/70 99 NIV Bilevel 07/30/19 08:36 85 24 96 30.00 07/30/19 08:19 36.5 86 16 189/102 (131) 74 Room Air 07/30/19 08:19 Nasal Cannula 5.00 I & O 07/31/19 07:00 Intake Total 525 ml Output Total 2150 ml Balance -1625 ml Height & Weight Height: 6'1.00" Weight: 361lbs. 0.0oz. 163.756585tg; 52.30 BMI Method: General Appearance: WD/WN, Anxious, Mild Distress, Obese HEENT: TMs Normal, Other (flushed face ) Neck: Non Tender, Supple; No Thyromegaly Respiratory: Chest Non Tender, Crackles, Decreased Breath Sounds (body habitus ) Cardiovascular: Regular Rate, Rhythm, No Gallop, No Murmur, Normal Peripheral Pulses Capillary Refill: Less Than 3 Seconds Gastrointestinal: non tender, soft Extremity: No Calf Tenderness, Pedal Edema (+3 pitting ) Neurologic/Psychiatric: Alert, Oriented x3 Skin: Normal Color (except as described above ), Warm/Dry, Other Lymphatic: No Adenopathy (supra/infraclavicular, AP cervical ) Results Lab Laboratory Tests 07/30/19 08:25 07/31/19 03:01 Assessment/Plan Assessment/Plan Acute respiratory failure -Currently on BiPAP Acute CHF -Cardiology following -Lasix -repeat BNP ORA -Uses CPAP at home History of atrial flutter s/p ablation on 05/13/2018. -Cardiology following DM Afib hx -Eliquis Hypertension, Morbid obesity FLORY VELA DO Jul 31, 2019 07:12
[2019-07-31] MEDS: APIXABAN 5 MG (ELIQUIS) TABLET PO SCH ×2 (10:02→20:24)
--- NOTE | 2019-07-31 10:52 | Progress Note - Hospitalist ---
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 He was placed on BiPAP, given lasix IV, Dr. Zhou was consulted and has been placed in the ICU for close monitoring. We will review all of his home medication and restart a few if possible. Subjective/Events-last exam Pt feeling much better, shortness of breath greatly improved Denies cough, admits some pain in his shoulders from previous work of breathing LE edema moderately improved. Pt notes his hands are no longer swollen and is happy Accompanied by in room Focused Exam Lactate Level 07/30/19 11:05: Lactic Acid Level 1.84 Objective Exam Vital Signs Vital Signs Date Time Temp Pulse Resp B/P (MAP) Pulse Ox O2 Delivery O2 Flow Rate FiO2 07/31/19 08:54 96 Room Air 07/31/19 07:44 36.5 120 20 127/91 (103) 07/31/19 04:00 30.00 07/30/19 16:00 30 Capillary Refill : Less Than 3 Seconds General Appearance: No Apparent Distress, WD/WN, Obese HEENT: Pharynx Normal, Moist Mucous Membranes Neck: Non Tender, Supple Respiratory: Chest Non Tender, No Accessory Muscle Use, No Respiratory Distress, Crackles (greatly reduced ), Wheezing Cardiovascular: No Gallop, No Murmur, Tachycardia Gastrointestinal: Non Tender, Soft, Distended (body habitus ) Extremity: No Calf Tenderness; No Inflammation; Pedal Edema (+3 pitting ) Neurologic/Psychiatric: Alert, Oriented x3 Skin: Normal Color, Warm/Dry Results/Procedures Lab Laboratory Tests 07/31/19 03:01 Patient resulted labs reviewed. Assessment/Plan Assessment and Plan Assess & Plan/Chief Complaint Assessment Acute heart failure respiratory distress Pulmonary edema Hypertension Insulin dependent T2DM Plan Moving pt to 4th floor Continue breathing treatments Appreciate support of cardio/pulm 40mg IV lasix BID Serial CXR, CBC, CMP repeat BNP Clinical Quality Measures DVT/VTE Risk/Contraindication: Risk Factor Score Per Nursin RFS Level Per Nursing on Admit: 4+=Very High KAYLEIGH FOX DO 07/31/192102: Subjective Subjective/Events-last exam Pt doing much better SOB discontinued Cough is much improved Nebulizer treatments maintained 99% O2 sat Elevated BP is noted Echocardiogram performed Transferring to fourth floor Review of Systems General: Fatigue Pulmonary: Dyspnea Cardiovascular: Edema Objective Exam General Appearance: No Apparent Distress, WD/WN, Chronically ill, Obese Respiratory: Chest Non Tender, Lungs Clear, Normal Breath Sounds, No Accessory Muscle Use, No Respiratory Distress, Decreased Breath Sounds Cardiovascular: Tachycardia Assessment/Plan Assessment and Plan Assess & Plan/Chief Complaint IV Lasix CSD transfer Monitor labs Diagnosis/Problems Diagnosis/Problems (1) Acute heart failure Status: Acute Qualifiers: Qualified Codes: I50.9 - Heart failure, unspecified (2) Hypoxia Status: Acute (3) Diabetes mellitus Status: Chronic (4) Hypertension Status: Chronic (5) Atrial fibrillation (6) ORA on CPAP Status: Chronic (7) Obesity Status: Chronic (8) Palpitations Status: Acute (9) Atrial flutter Status: Acute (10) Tachycardia Status: Acute Supervisory-Addendum Brief Verification & Attestation Participated in pt care: history, MDM, physical Personally performed: exam, history, MDM, supervision of care Care discussed with: Medical Student Procedures: n/a Results interpretation: Verified all documentation Verification and Attestation of Medical Student E/M Service A medical student performed and documented this service in my presence. I reviewed and verified all information documented by the medical student and made modifications to such information, when appropriate. I personally performed the physical exam and medical decision making. Kayleigh Fox, Jul 31, 2019,21:03 OLGA ANTONY,MED STUDENT Jul 31, 2019 10:52 KAYLEIGH FOX DO Jul 31, 2019 21:03
[2019-07-31] MEDS: RT-ALBUTEROL/IPRATROPIUM 3 ML (DUONEB) VIAL INH SCH ×2 (11:50→16:24)
[2019-07-31] MEDS: NS IV 1000 ML 1,000 ML IV SCH (12:02)
[2019-07-31] MEDS: DILTIAZEM 180 MG (CARDIZEM CD) CAP PO SCH (13:13)
--- NOTE | 2019-07-31 19:36 | NUR ---
Pt's rhythm changed to Aflutter. Stat EKG obtained and results sent to Dr. Zhou. No new orders at this time.
[2019-08-01] VITALS: BP 154/85
[2019-08-01] MEDS: NS IV 1000 ML 1,000 ML IV SCH (00:34)
[2019-08-01] MEDS: RT-ALBUTEROL/IPRATROPIUM 3 ML (DUONEB) VIAL INH SCH ×2 (02:39→09:37)
[2019-08-01 03:39] VITALS: BP 132/90
[2019-08-01 03:55] LABS: BASOPHILS % (AUTO) 0 % (0-10); EOSINOPHILS # (AUTO) 0.1 10^3/uL (0.0-0.3); EOSINOPHILS % (AUTO) 2 % (0-10); HEMATOCRIT 37 % (40-54); HEMOGLOBIN 12.5 G/DL (13.3-17.7); LYMPHOCYTES # (AUTO) 1.4 X 10^3 (1.0-4.0); LYMPHOCYTES % (AUTO) 19 % (12-44); MEAN CORPUSCULAR HEMOGLOBIN 28 PG (25-34); MEAN CORPUSCULAR HGB CONC 33 G/DL (32-36); MEAN CORPUSCULAR VOLUME 84 FL (80-99); MEAN PLATELET VOLUME 10.9 FL (7.4-10.4); MONOCYTES # (AUTO) 0.5 X 10^3 (0.0-1.0); MONOCYTES % (AUTO) 7 % (0-12); NEUTROPHILS # (AUTO) 5.4 X 10^3 (1.8-7.8); NEUTROPHILS % (AUTO) 72 % (42-75); PLATELET COUNT 189 10^3/uL (130-400); RED CELL DISTRIBUTION WIDTH 14.7 % (10.0-14.5); WHITE BLOOD COUNT 7.4 10^3/uL (4.3-11.0)
[2019-08-01 04:05] LABS: ALANINE AMINOTRANSFERASE 45 U/L (0-55); ALBUMIN 3.8 GM/DL (3.2-4.5); ALKALINE PHOSPHATASE 32 U/L (40-136); BILIRUBIN,TOTAL 0.4 MG/DL (0.1-1.0); BUN/CREATININE RATIO 15; CALCIUM 9.1 MG/DL (8.5-10.1); CARBON DIOXIDE 22 MMOL/L (21-32); CHLORIDE 107 MMOL/L (98-107); CREATININE SERUM 0.99 MG/DL (0.60-1.30); GFR ESTIMATED > 60; GLUCOSE 88 MG/DL (70-105); POTASSIUM 3.8 MMOL/L (3.6-5.0); SODIUM 140 MMOL/L (135-145); TOTAL PROTEIN 7.3 GM/DL (6.4-8.2)
[2019-08-01] MEDS: inSUlin ASPART (NovoLOG) 1 UNIT/0.01 ML (CHARGE PER UNIT) SC SCH ×4 (05:12→11:43)
--- NOTE | 2019-08-01 06:39 | Pulmonary Progress Note ---
Subjective Time Seen by a Provider: 06:39 Subjective/Events-last exam No complications noted. Sepsis Event Evaluation Height, Weight, BMI Height: 6'1.00" Weight: 361lbs. 0.0oz. 163.757124wn; 52.30 BMI Method: Focused Exam Lactate Level 07/30/19 11:05: Lactic Acid Level 1.84 Exam Exam Vital Signs Date Time Temp Pulse Resp B/P (MAP) Pulse Ox O2 Delivery O2 Flow Rate FiO2 08/01/19 03:44 95 NIV CPAP 08/01/19 03:39 36.2 117 16 132/90 (104) 95 NIV CPAP 08/01/19 01:00 92 08/01/19 00:00 96 NIV CPAP 08/01/19 00:00 36.3 106 18 154/85 (108) 98 NIV CPAP 07/31/19 21:00 96 Room Air 07/31/19 20:00 35.9 123 17 114/83 (93) 96 Room Air 07/31/19 20:00 96 Room Air 07/31/19 19:00 100 07/31/19 16:25 36.8 97 16 100/61 (74) 95 Room Air 07/31/19 16:25 92 Room Air 07/31/19 15:23 95 Room Air 07/31/19 12:23 125 07/31/19 12:00 36.4 122 20 118/89 (99) 99 Room Air 30.00 07/31/19 12:00 94 Room Air 07/31/19 08:54 96 Room Air 07/31/19 07:45 96 Room Air 07/31/19 07:44 36.5 120 20 127/91 (103) 96 Room Air 07/31/19 07:00 125 I & O 08/01/19 07:00 Intake Total 1525 ml Output Total 1850 ml Balance -325 ml Height & Weight Height: 6'1.00" Weight: 361lbs. 0.0oz. 163.879443cu; 52.30 BMI Method: General Appearance: No Apparent Distress, WD/WN, Chronically ill, Obese HEENT: Pharynx Normal, Moist Mucous Membranes Neck: Non Tender, Supple Respiratory: Chest Non Tender, Lungs Clear, Normal Breath Sounds, No Accessory Muscle Use, No Respiratory Distress, Decreased Breath Sounds Cardiovascular: Tachycardia Capillary Refill: Less Than 3 Seconds Gastrointestinal: non tender, soft Extremity: No Calf Tenderness; No Inflammation; Pedal Edema (+3 pitting ) Neurologic/Psychiatric: Alert, Oriented x3 Skin: Normal Color, Warm/Dry Lymphatic: No Adenopathy (supra/infraclavicular, AP cervical ) Results Lab Laboratory Tests 07/30/19 08:25 07/31/19 03:01 08/01/19 03:35 Assessment/Plan Assessment/Plan Acute respiratory failure -Currently on CPAP secondary to ORA. Was on RA yesterday during the day Acute CHF -Cardiology following -Lasix -repeat CXR ORA -Uses CPAP at home History of atrial flutter s/p ablation on 05/13/2018. -Cardiology following DM Afib hx -Eliquis Hypertension, Morbid obesity FLORY VELA DO Aug 01, 2019 06:39
--- NOTE | 2019-08-01 07:47 | Diagnostic Imaging Report ---
INDICATION: Shortness of breath. Portable chest 7:00 AM Heart size and pulmonary vascularity are normal. Lungs are clear. There are no effusions or pneumothoraces. IMPRESSION: Negative chest. Dictated by: Dictated on workstation # [id number]
[2019-08-01 08:00] VITALS: BP 135/94
[2019-08-01] MEDS: APIXABAN 5 MG (ELIQUIS) TABLET PO SCH (08:31)
[2019-08-01] MEDS: DILTIAZEM 180 MG (CARDIZEM CD) CAP PO SCH (08:32)
[2019-08-01] MEDS ORDERED: DILTIAZEM 180 MG (CARDIZEM CD) CAP PO SCH (09:00)
[2019-08-01] MEDS ORDERED: meTOproloL SUCCINATE 50 MG (TOPROL XL) TAB PO SCH (09:00)
--- NOTE | 2019-08-01 11:11 | Physician Query Clarification ---
PQ-CHF Specificity Admission Date: Jul 30, 2019 at 10:20 Discharge Date: The medical record reflects the following clinical scenario: History/Risk Factors: CHF, HTN, PAF, ORA, Morbid obesity, DM, SSS, Mitral regurgitation Clinical Findings: EF 40% per 2D echo 07/30/19 Treatment: IV Lasix 40 mg Question: Can you further specify the acuity &/or type of CHF per the clinical indicators above? Please document a response in the Progress Notes or Discharge Summary. 1. Acuity: Acute, Chronic or Acute on Chronic 2. Type: Systolic, Diastolic or Systolic & Diastolic 3. Unspecified: CHF cannot be further specified regarding type or acuity 4. Other, with explanation of clinical findings 5. Clinically undetermined, no explanation for clinical findings PHYSICIAN RESPONSE Acuity: Acute on Chronic Type: Systolic & Diastolic Please remember a lack of response to the above will prompt a phone page by [facility] staff. In responding to this query, please exercise your independent professional judgment. The purpose of this communication is to more accurately reflect the complexity of your patients condition. The fact that a question is asked does not imply that any particular answer is desired or expected. Thank you for your timely response to this clarification. Requestors name: Godfrey THIS PHYSICIAN QUERY FORM IS A PERMANENT PART OF THE MEDICAL RECORD GODFREY VELASQUEZ Aug 01, 2019 11:11 Jacy DUNCAN MD Aug 02, 2019 16:11
--- NOTE | 2019-08-01 11:20 | Discharge Summary ---
Discharge Summary Hospital Course Was the Problem List Reviewed?: Yes Problems/Dx: (1) Acute heart failure Status: Acute Qualifiers: Qualified Codes: I50.9 - Heart failure, unspecified (2) Hypoxia Status: Acute (3) Diabetes mellitus Status: Chronic (4) Hypertension Status: Chronic (5) Atrial fibrillation (6) ORA on CPAP Status: Chronic (7) Obesity Status: Chronic (8) Palpitations Status: Acute (9) Atrial flutter Status: Acute (10) Tachycardia Status: Acute Hospital Course Date of Admission: Jul 30, 2019 at 10:20 Admission Diagnosis : Family Physician/Provider: Kayleigh Fox DO Date of Discharge: 08/01/19 Discharge Diagnosis: Acute CHF, Volume overload, Atrial flutter, DM, ORA Hospital Course: Hospital course: Pt had an uncomplicated hospital course after he came in with acute heart failure and required BiPAP and ICU stay with aggressive diuresis. Cardiology was consulted and fully evaluated his echocardiogram along with Dr. Simms in management of ORA. Pt felt very well at day of discharge. Oxygen was on room air and no desaturation and all diuretics were reviewed by Dr. Zhou. Labs and Pending Lab Test: Laboratory Tests 07/31/19 15:00: Glucometer 189H 07/31/19 19:29: Glucometer 126H 08/01/19 03:35: White Blood Count 7.4, Red Blood Count 4.43, Hemoglobin 12.5L, Hematocrit 37L, Mean Corpuscular Volume 84, Mean Corpuscular Hemoglobin 28, Mean Corpuscular Hemoglobin Concent 33, Red Cell Distribution Width 14.7H, Platelet Count 189, Mean Platelet Volume 10.9H, Neutrophils (%) (Auto) 72, Lymphocytes (%) (Auto) 19, Monocytes (%) (Auto) 7, Eosinophils (%) (Auto) 2, Basophils (%) (Auto) 0, Neutrophils # (Auto) 5.4, Lymphocytes # (Auto) 1.4, Monocytes # (Auto) 0.5, Eosinophils # (Auto) 0.1, Basophils # (Auto) 0.0, Sodium Level 140, Potassium Level 3.8, Chloride Level 107, Carbon Dioxide Level 22, Anion Gap 11, Blood Urea Nitrogen 15, Creatinine 0.99, Estimat Glomerular Filtration Rate > 60, BUN/Creatinine Ratio 15, Glucose Level 88, Calcium Level 9.1, Corrected Calcium 9.3, Total Bilirubin 0.4, Aspartate Amino Transf (AST/SGOT) 29, Alanine Aminotransferase (ALT/SGPT) 45, Alkaline Phosphatase 32L, Total Protein 7.3, Albumin 3.8 08/01/19 09:40: Glucometer 218H Microbiology 07/30/19 Blood Culture - Preliminary, Resulted No growth Home Meds Active Reported K-Tab ER (Potassium Chloride) 10 Meq Tablet.er 10 Meq PO DAILY PRN HAS NOT TAKEN, HAS ONLY IF NEEDED Chewable-Holli (Multivitamin) 1 Each Tab.chew 1 Tab.chew PO DAILY Vitamin B-12 (Cyanocobalamin (Vitamin B-12)) 1,000 Mcg Tablet 1,000 Mcg PO DAILY Co Q-10 100 mg Softgel (Ubidecarenone/Vit E Acetate) 1 Each Capsule 100 Mg PO DA YOSEF Krill Oil 500 Mg Capsule 500 Mg PO DAILY Vitamin D2 (Ergocalciferol (Vitamin D2)) 1,250 Mcg Capsule 1,250 Mcg PO MO Furosemide 40 Mg Tablet 80 Mg PO DAILY TAKES 2 (40MG) TABLETS Diltiazem 24Hr ER (Diltiazem HCl) 180 Mg Cap.er.24h 180 Mg PO DAILY Hydralazine HCl 50 Mg Tablet 50 Mg PO TID Minoxidil 2.5 Mg Tablet 2.5 Mg PO DAILY Multaq (Dronedarone HCl) 400 Mg Tablet 400 Mg PO BID LAST FILLED #60 10-30-19 Lotrel 10-20 mg Capsule (Amlodipine/Benazepril) 1 Cap Cap 1 Cap PO DAILY Metoprolol Succinate 50 Mg Tab.er.24h 50 Mg PO DAILY Eliquis (Apixaban) 5 Mg Tablet 5 Mg PO BID Fenofibrate (Fenofibrate Nanocrystallized) 145 Mg Tablet 145 Mg PO DAILY Simvastatin 20 Mg Tablet 20 Mg PO DAILY Metformin HCl 1,000 Mg Tablet 1,000 Mg PO BID WITH MEALS Novolog Flexpen (Insulin Aspart) 300 Units/3 Ml Solution 20 Units SC TIDAC Lantus Solostar (Insulin Glargine,Hum.rec.anlog) 100 Unit/1 Ml Insuln.pen 30 Units SC HS Glimepiride 2 Mg Tablet 2 Mg PO BID Assessment/Pt Instructions Dr Fox Sunday Discharge Planning: <30 minutes discharge planning Discharge Instructions Discharge Diet: ADA Diet Activity as Tolerated: Yes Discharge Physical Examination Vital Signs Vital Signs Date Time Temp Pulse Resp B/P (MAP) Pulse Ox O2 Delivery O2 Flow Rate FiO2 08/01/19 11:03 96 Room Air 08/01/19 08:00 36.4 129 16 135/94 (108) 07/31/19 12:00 30.00 07/30/19 16:00 30 General Appearance: No Apparent Distress, WD/WN Respiratory: Lungs Clear Cardiovascular: Regular Rate, Rhythm Neurologic/Psychiatric: Alert, Oriented x3, No Motor/Sensory Deficits, Normal Mood/Affect Allergies: Coded Allergies: NKANo Known Allergies (Verified Allergy, Unknown, 03/15/07) Discharge Summary Date of Admission Jul 30, 2019 at 10:20 Date of Discharge Discharge Date: Aug 01, 2019 Admission Diagnosis Assessment: Respiratory distress requiring biPAP Atrial flutter s/p ablation Dr Zhou DM insulin dependence HTN HLP Edema chronic ORA faithful on CPAP Plan: biPAP IV Lasix Home meds Cardiology and Pulmonology evaluation Discharge Diagnosis IV Lasix CSD transfer Monitor labs (1) Acute heart failure Status: Acute Qualifiers: Qualified Codes: I50.9 - Heart failure, unspecified (2) Hypoxia Status: Acute (3) Diabetes mellitus Status: Chronic (4) Hypertension Status: Chronic (5) Atrial fibrillation (6) ORA on CPAP Status: Chronic (7) Obesity Status: Chronic (8) Palpitations Status: Acute (9) Atrial flutter Status: Acute (10) Tachycardia Status: Acute Clinical Quality Measures DVT/VTE Risk/Contraindication: Risk Factor Score Per Nursin RFS Level Per Nursing on Admit: 4+=Very High KAYLEIGH FOX DO Aug 01, 2019 11:20
[2019-08-01 12:00] VITALS: BP 170/76
[2019-08-01] MEDS ORDERED: meTOproloL SUCCINATE 50 MG (TOPROL XL) TAB PO ONE (12:15)
[2019-08-01] MEDS ORDERED: DILTIAZEM 60 MG (CARDIZEM) TAB PO ONE (12:15)
--- NOTE | 2019-08-01 13:09 | Cardiology Progress Note ---
Cardiology SOAP Progress Note Subjective: Late entry: Patient was seen on 07/31/2019. Improved shortness of breath. Objective: I&O/Vital Signs Weight (Pounds): 361 Weight (Ounces): 0.0 Weight (Calculated Kilograms): 163.425286 Constitutional: appears stated age; No apparent distress; well-developed, well- nourished Respiratory: chest is bilaterally symmetric, lungs clear to auscultation, other (course breathing however no wheezing.) Cardiovascular: regular rate-rhythm, tachycardia, S1 and S2 Gastrointestional: soft, audible bowel sounds; No spleenomegaly Extremities: normal range of motion, non-tender, normal inspection, pedal edema; No clubbing, No cyanosis, No significant edema Neurologic/Psychiatric: no motor/sensory deficits, alert, normal mood/affect, oriented x 3, power is 5/5 both on sides Skin: normal color; No rash, No ulcerations Results/Procedures: Labs Microbiology 07/30/19 Blood Culture - Preliminary, Resulted No growth A/P: Assessment/Dx: Acute respiratory failure, Acute congestive heart failure, Paroxysmal atrial fibrillation, History of typical atrial flutter, Obstructive sleep apnea on CPAP, Diabetes, Hypertension, Morbid obesity, History of sinus node dysfunction. Plan: Acute respiratory failure, likely multifactorial. Improved significantly with BiPAP therapy as well as Lasix IV. Significantly improved. Acute congestive heart failure, BNP not significantly elevated. Respiratory failure is out of proportion to BNP. However chest x-ray shows bilateral interstitial edema and clinically the patient may have acute congestive heart failure. We will treat with IV Lasix. Echocardiogram. Paroxysmal atrial fibrillation, currently in sinus rhythm. And is on Eliquis. History of typical atrial flutter, atrial flutter ablation successfully done on 05/13/2018. No further episode of atrial flutter. Obstructive sleep apnea on CPAP, Diabetes, previously on insulin. Defer to Dr. Fox. Hypertension, continue outpatient medical therapy. Morbid obesity, History of sinus node dysfunction. No acute issues. Thank you for your consultation. Please call me if you have any questions. Mckenna Zhou MD, FACP, FACC, FSCAI, FHRS, CCDS Interventional Cardiology Cardiac Electrophysiology Vascular Medicine and Endovascular Interventions Focused Exam Lactate Level Jacy ZHOU MD Aug 01, 2019 13:09
--- NOTE | 2019-08-01 13:09 | Cardiology Progress Note ---
Cardiology SOAP Progress Note Subjective: Significantly improved shortness of breath. Objective: I&O/Vital Signs Weight (Pounds): 361 Weight (Ounces): 0.0 Weight (Calculated Kilograms): 163.662585 Constitutional: appears stated age; No apparent distress; well-developed, well- nourished Respiratory: accessory muscle use, respiratory distress, chest is bilaterally symmetric, other (course breathing however no wheezing.) Cardiovascular: regular rate-rhythm, tachycardia, S1 and S2 Gastrointestional: soft, audible bowel sounds; No spleenomegaly Extremities: normal range of motion, non-tender, normal inspection, pedal edema; No clubbing, No cyanosis, No significant edema Neurologic/Psychiatric: no motor/sensory deficits, alert, normal mood/affect, oriented x 3, power is 5/5 both on sides Skin: normal color; No rash, No ulcerations Results/Procedures: Labs Microbiology 07/30/19 Blood Culture - Preliminary, Resulted No growth A/P: Assessment/Dx: Acute respiratory failure, Acute congestive heart failure, Paroxysmal atrial fibrillation, History of typical atrial flutter, Obstructive sleep apnea on CPAP, Diabetes, Hypertension, Morbid obesity, History of sinus node dysfunction. Plan: Acute respiratory failure, likely multifactorial. Improved significantly with BiPAP therapy as well as Lasix IV. Resolved. Acute congestive heart failure, BNP not significantly elevated. Respiratory failure is out of proportion to BNP. However chest x-ray shows bilateral interstitial edema and clinically the patient may have acute congestive heart failure. We will treat with IV Lasix. Echocardiogram. Paroxysmal atrial fibrillation, episodes of atrial fibrillation, atypical atrial flutter noted for brief period of time. Cardizem will be increased to 240 mg daily and metoprolol to 50 mg twice a day. Continue Eliquis. We will consider atrial fibrillation ablation in the future. History of typical atrial flutter, atrial flutter ablation successfully done on 05/13/2018. No further episode of atrial flutter. Obstructive sleep apnea on CPAP, Diabetes, previously on insulin. Defer to Dr. Fox. Hypertension, continue outpatient medical therapy. Morbid obesity, History of sinus node dysfunction. No acute issues. Thank you for your consultation. Please call me if you have any questions. Mckenna Zhou MD, FACP, FACC, FSCAI, FHRS, CCDS Interventional Cardiology Cardiac Electrophysiology Vascular Medicine and Endovascular Interventions Focused Exam Lactate Level Jacy ZHOU MD Aug 01, 2019 13:09
[2019-08-01] MEDS ORDERED: METO50TA7 PO (13:19)
[2019-08-01] MEDS ORDERED: FURO40TA4 PO (13:19)
[2019-08-01] MEDS ORDERED: DILT180C85 PO (13:19)
== END 2019-08-01 13:55 | disposition home or self-care (01) | DRG 291 ==
LOC: EDUNIT# 08:19 → ER 08:20 → CSD 10:20 → ICU 10:21 → CSD 07-31 12:58
PROVIDERS: ADMIT Internal Medicine; ATTEND Internal Medicine
PROC: 5A09357 Assistance with Respiratory Ventilation, Less than 24 Consecutive Hours, Continuous Positive Airway Pressure (ICD-10-PCS; principal; 2019-07-30)
DX: I11.0 Hypertensive heart disease with heart failure (principal); J96.01 Acute respiratory failure with hypoxia; Z68.42 Body mass index [BMI] 45.0-49.9, adult; I50.43 Acute on chronic combined systolic (congestive) and diastolic (congestive) heart failure; I48.0 Paroxysmal atrial fibrillation; G47.33 Obstructive sleep apnea (adult) (pediatric); E66.01 Morbid (severe) obesity due to excess calories; E11.9 Type 2 diabetes mellitus without complications; I49.5 Sick sinus syndrome; E78.00 Pure hypercholesterolemia, unspecified; M54.9 Dorsalgia, unspecified; I34.0 Nonrheumatic mitral (valve) insufficiency; G89.29 Other chronic pain; Z87.891 Personal history of nicotine dependence; Z79.01 Long term (current) use of anticoagulants; Z79.4 Long term (current) use of insulin
CPT/HCPCS: 36415; 36600; 71045; 80053; 80061; 82805; 82962; 83605; 83735; 83874; 83880; 84484; 85025; 85610; 85730; 87040; 93005; 93041; 94640; 94660; 94664; 94760; 96374; 96375

== ENCOUNTER 2019-11-21 07:05 | Inpatient (IN) | payer BC ==
[2019-11-21] VITALS (17 sets, daily range): BP systolic 102–150; BP diastolic 62–104
[~2019-11-21] VITALS: Ht 185 cm; Wt 167.0 kg
[~2019-11-21 07:05] MED LIST changes: +CYAN-41 PO; +DILT180C85 PO; +FENO145T26 PO; -FENO145T37 PO; +FURO40TA4 PO; -GLIM2TAB2 PO; +GLIM2TAB4 PO; +KRIL500C PO; +MULT1TAB60 PO; +MULT1TAB69 PO; +POTA10TA PO; +UBID1CAP53 PO
--- OUTSIDE RECORDS SUMMARY | 2019-11-21 07:12 | XMS REPORT ---
Author Author [employer] market research senior project manager [employer] [facility] [employer] [facility] [employer]bloomy Address [address] [address] Care Team Providers Care Interior Design Principal Name Role Phone BLAKE HELM Unavailable Unavailable HARPER, MARCIE Unavailable Jacy DUNCAN MD Unavailable Unavailable HARPER DO, MARCIE Unavailable Unavailable HARPER DO, MARCIE Unavailable Unavailable SHERINE MENDENHALL XIAO Unavailable Unavailable MIGUEL ROE MD Unavailable Unavailable HARPER DO, MARCIE S Unavailable Unavailable HARPER DO, MARCIE S Unavailable Unavailable Unavailable Unavailable Unavailable Unavailable Allergies Normalized Allergy Reported Date of Reaction(s) Care Provider Facility Allergy Type classification allergen Allergy Onset MA (20 Unclassified NKANo Known 03-15-2007 - no information MARCIE HARPER , Not Available sources.) Allergies DO (46934) Medications Medication Ingredient Drug Dose Dates Status Sig Sig Care Class(es) (Normalized) (Original) Provid er amiodarone amiodarone Antiarrhyth 200 mg 03-11-20 Complete take 1 Amiodarone Marcie hydrochlori ant 18 - d tablet by Hcl 200 Mg Ga rner de 200 mg 03-28-20 mouth twice Tablet, 200 (no oral tablet 18 daily Mg Oral phone) (2 Twice A Day sources.) 03/11/18 Discontinued 200 mg 05-06-2018 Completed take 1 Amiodaro (no tablet ne Hcl phone) by 200 Mg mouth Tablet, once 200 Mg daily Oral Daily Disconti nued apixaban 5 apixaban Factor Xa 5 mg 03-08-20 Complete take 1 Ap ixaban M mg oral Inhibitor 18 - d tablet by (Eliquis) 5 Dylan wan tablet (2 05-06-20 mouth twice Mg Tablet, 5 Khalid sources.) 18 daily Mg Oral (no Twice A Day phone) 03/08/18 Discontinued 24 hr dilTIAZem Calcium 03-08-20 Complete no Diltiazem M dilTIAZem Translation Channel 18 - d information Hcl Antoni hydrochlori s: [ 24 HR Melissa 03-28-20 (Diltiazem Khalid de 120 mg Diltiazem 18 24HR Cd) 120 (no extended Hydrochlori Mg phone) release de 240 MG Cap.er.24h, oral Extended 120 Mg Oral capsule (3 Release Daily sources.) Oral T, 24 08/24/18 HR Discontinued Diltiazem Hydrochlori de 240 MG Extended Release Oral C] 240 mg Completed take 1 Diltiaze (no capsul m Hcl phone) e by (Diltiaz mouth em 24HR once Cd) 240 daily, Mg then Cap.er.2 take 1 4h 240 capsul Mg ORAL e by Daily mouth 240 mg 03-28-2018 Completed take 1 Diltiaze (no tablet m Hcl phone) by (Diltiaz mouth em Er) once 240 Mg daily, Tab.er.2 then 4h, 240 take 1 Mg Oral tablet Daily by Disconti mouth nued ergocalcife ergocalcife Provitamin [id number] Complete take 1 Ergocal cifer (no rol 60504 rol D2 Compound [IU] d capsule by ol (Vitamin phone) unt oral mouth every D2) (Vitamin capsule (1 week, then D2) 50,000 source.) take 1 Unit Capsule capsule by 50,000 Units mouth ORAL Weekly furosemide furosemide Loop 20 mg Complete take 1 Furosemide ( no 20 mg oral Diuretic d tablet by 20 Mg Tablet phone) tablet (1 mouth once 20 Mg ORAL source.) daily as Daily as needed needed for Swelling 3 ml insulin, Insulin 25 03-28-20 Complete take 25 [IU] In sulin (no insulin, aspart, Analog [IU] 18 d by Aspart phon e) aspart, human subcutaneous (Novolog human 100 injection Flexpen) 300 unt/ml pen three times Units/3 Ml injector (2 daily before Solution 25 sources.) mealtime Units SUBCUTANEOUS Three Times A Day Before Meals no Krill/Om-3/ no Complete take 1 Krill/Om-3/D (n o information Dha/Epa/Julio information d capsule by barrios/Epa /Phosp phone) (1 source.) spho/Ast mouth twice ho/Ast (Krill Oil daily, then (Krill Oil 1,000 Mg take 1 1,000 Mg Softgel) 1 capsule by Softgel) 1 Each mouth Each Capsule Capsule 1 Each ORAL Twice A Day no Krill/Om-3/ no 1000 03-28-20 Complete take 1 Krill/ Om-3/D (no information Dha/Epa/Julio information mg 18 d capsule by barrios/Epa/Phosp phone) (1 source.) spho/Ast mouth once ho/Ast (Krill Oil daily (Krill Oil 1,000 Mg 1,000 Mg Softgel) 1 Softgel) 1 Each Each Capsule, Capsule, 1000 Mg 1000 Mg Oral Oral Daily Discontinued 24 hr metoprolol beta-Adrene 50 mg 03-11-20 Complete take 1 Me toprolol Marcie metoprolol rgic 18 - d tablet by Succinate 50 G arner succinate Melissa 05-06-20 mouth once Mg (no 50 mg 18 daily, then Tab.er.24h, phone) extended take 1 50 Mg Oral release tablet by Daily oral tablet mouth 03/11/18 (2 Discontinued sources.) no Multivitami no Complete take 1 Multivitamin (n o information n (Daily information d tablet by (Daily phone) (1 source.) Multiple mouth once Multiple Vitamin) 1 daily, then Vitamin) 1 Each Tablet take 1 Each Tablet tablet by 1 Tab ORAL mouth Daily no Ubidecareno no 100 mg Complete take 1 Ubidecarenon ( no information ne (Co information d capsule by e (Co Q-1 0) phone) (1 source.) Q-10) 100 mouth once 100 Mg Mg Capsule daily Capsule 100 Mg ORAL Daily no Ubidecareno no 05-06-20 Complete no Ubidecarenon (no information ne (Co information 18 d information e (Co Q -10) phone) (1 source.) Q-10) 200 200 Mg Mg Capsule, Capsule, 200 200 Mg Oral Mg Oral Daily Discontinued Problems Active Problems Problem Normalized Date Last Normalized Normalized Provider Fa cility Classification Problem(s) Recorded Problem Problem Sta tus Duration Respiratory Acute Episodic Active MARCIE HARPER Huma Vi a failure; respiratory DO Sindhu insufficiency; failure with Hospital - arrest (adult) hypoxia [place] (7 sources.) (66050) Cardiac Atypical no information Active MARCIE HARPER , Not Available dysrhythmias atrial flutter DO (23843) (20 sources.) Translations: [ PAROXYSMAL ATRIAL FIBRILLATION, TACHYCARDIA, UNSPECIFIED, PALPITATIONS] Other Body mass Chronic Active MARCIE HARPER , Not Kelly ilable nutritional; index (BMI) DO (42168) endocrine; and 45.0-49.9, metabolic adult disorders (20 sources.) Other lower Cough Episodic Active MARCIE HARPER , Not Av ailable respiratory DO (38796) disease (11 sources.) Spondylosis; Dorsalgia, Episodic Active MARCIE HARPER , Not Available intervertebral unspecified DO (95016) disc disorders; other back problems (23 sources.) Congestive Heart failure, Chronic Active MARCIE HARPER , V [facility] Via heart failure; unspecified DO Sindhu nonhypertensiv Translations: Hospital - e (7 sources.) [ ACUTE ON [place] CHRONIC (56245) COMBINED SYSTOLIC AND D] Hypertension Hypertensive Chronic Active MARCIE HARPER , V [facility] Via with heart disease DO Sindhu complications with heart Hospital - and secondary failure [place] hypertension (28466) (7 sources.) Other Hypotension, Episodic Active MARCIE HARPER , Not Available circulatory unspecified DO (04362) disease (16 sources.) Other terminal supervisor Episodic Active MD DAKOTA Not Availa ble aftercare (24 (current) use (81216) sources.) of anticoagulants Other senior care Episodic Active MARCIE HARPER , Not Kelly ilable aftercare (23 (current) use DO (19094) sources.) of insulin Other Morbid Chronic Active MARCIE HARPER , Not Avai lable nutritional; (severe) DO (37592) endocrine; and obesity due to metabolic excess disorders (23 calories sources.) Heart valve Nonrheumatic Chronic Active MD DAKOTA [facility] V ia disorders (8 mitral (valve) Sindhu sources.) insufficiency Hospital - [place] ([address]1839) Other Obesity Chronic Active MARCIE HARPER Via [facility] i nutritional; [address] [facility] endocrine; and [place] metabolic (42669) disorders (1 source.) Residual Obstructive Chronic Active MARCIEMason HARPER [facility] V ia codes; sleep apnea DO Sindhu unclassified (adult) Hospital - (17 sources.) (pediatric) [place] ([address]28) Conduction Other Chronic Active MARCIE HARPER , Not Kelly ilable disorders (23 atrioventricul DO (38777) sources.) ar block Translations: [ ATRIOVENTRICUL AR BLOCK, SECOND DEGREE] Other nervous Other chronic Chronic Active MARCIE MEREDITH [facility] Via system pain DO Sindhu disorders (6 Hospital - sources.) [place] ([address]54) Other upper Other seasonal Chronic Active MARCIE HARPER , Not Available respiratory allergic DO (65850) disease (16 rhinitis sources.) Screening and Personal Episodic Active MARCIE HARPER [facility] Via history of history of DO [facility] - and substance dependence [place] abuse codes (7 (56857) sources.) Cardiac Tachycardia, Episodic Active MARCIE HARPER , Not Available dysrhythmias unspecified DO (99722) (15 sources.) Translations: [ ATYPICAL ATRIAL FLUTTER, PAROXYSMAL ATRIAL FIBRILLATION, TACHYCARDIA, UNSPECIFIED, PALPITATIONS] Diabetes Type 2 Chronic Active MARCIE HARPER , Not Avai lable mellitus with diabetes DO (10638) complications mellitus with (16 sources.) other circulatory complications Unclassified no information no information Active MARCIE VIEIRA [facility] (2 sources.) [address] [place] [address] ([address]) Past or Other Problems Problem Normalized Date Last Normalized Normalized Provider Fa cility Classification Problem(s) Recorded Problem Problem Sta tus Duration Other Other long Episodic Completed MD DAKOTA Not Avail able aftercare (17 term (current) (54737) sources.) drug therapy NEGATED Pure no information no information no name no information no hypercholester information (7 olemia, sources.) unspecified Procedures Procedure Normalized Procedure Procedure Result Performer Facility Date 07-30-2019 ASSISTANCE WITH no information no name [facility] Via [facility] VENTILATION, (71783) Jain of Cardiac no information no name Not Kelly ilable (24374) Rhythm, Single Immunizations Normalized Immunization Date Notes Care Provider Facili ty Immunization influenza, 05-13-2018 no information no name Not Availab le injectable,quadrival (99095) ent, preservative free, pediatric vaccine no information MARCIE HARPER [address] [facility] Translations: [ [place] (66489) vaccine] Results The data below is from unstructured sourcesNo Known Results No relevant diagnostic test, laboratory data and/or discharge summary information available.No relevant diagnostic test, laboratory data and/or discharge summary information available. Vital Signs The data below is from unstructured sources Vital Response Date/Time Height (Feet) 6 feet 2:05pm Height (Inches) 1.00 inches 05/06/2018 2:05pm Height (Calculated Centimeters) 185. 169096 cm 05/06/2018 2:05pm Weight (Pounds) 351 pounds 05/06/2018 2:05pm Weight (Ounces) 0.0 oz 1 2:05pm Weight (Calculated Grams) 865394.92 gm 05/06/2018 2:05pm Weight (Calculated Kilograms) 159.21 0923 kilograms 05/06/2018 2:05pm Calculated BMI 46.3 04/16 2:05pm Interventions No Information Plan of Treatment The data below is from unstructured sources Discharge Date 05/06/18 2:32pm Prescriptions See Medication Section Goals No Information Social History Normalized Code Original Code Date Value no information no information no information Never smoked to bacco (finding) Functional Status The data below is from unstructured sourcesNo functional status information available. Mental Status No Information Encounters Encounter Normalized Encounter Encounter Diagnosis Care Provi billy Organization Date Type 07-30-2019 Emergency department no information no name no organization name patient visit 11-05-2016 Emergency department no information no name no organization name patient visit 07-30-2019 Evaluation and no information no name no organ ization name - management of 08-01-2019 inpatient 03-07-2018 Evaluation and no information no name no organ ization name - management of 03-11-2018 inpatient 05-13-2018 Patient encounter no information no name no or ganization name - 05-14-2018 05-06-2018 Patient encounter no information Jacy cameron no organization name - 05-06-2018 03-28-2018 Patient encounter no information no name no or ganization name - 03-28-2018 NEGATED Patient encounter no information no name no or ganization name 03-07-2018 - 03-11-2018 03-07-2018 Patient encounter no information no name no or ganization name 03-06-2018 Patient encounter no information no name no or ganization name 09-17-2017 Patient encounter no information no name no or ganization name Patient encounter no information no name no organizat ion name 07-30-2019 Patient encounter no information no name no or ganization name - procedure 08-01-2019 12-05-2018 Patient encounter no information no name no or ganization name procedure 11-28-2018 Patient encounter no information no name no or ganization name procedure 09-05-2018 Patient encounter no information no name no or ganization name - procedure 12-04-2018 09-05-2018 Patient encounter no information no name no or ganization name procedure 05-10-2018 Patient encounter no information no name no or ganization name - procedure 05-11-2018 11-05-2016 Patient encounter no information no name no or ganization name procedure no information Encounter for other no name no organiz ation name preprocedural examination Medical Equipment No Information Payers Normalized Payer Value [employer] Blue Shield no information [employer] [id number]) Summary Purpose eClinicalWorks Submission Advance Directives Directive Response Recor ded Date/Time Advance Directives No 2:08pm Health Care Power of Garment Tag Stringer No 05/06/18 2:08pm Organ Donor No 05/06/18 2:08pm Resuscitation Status Full Code 05/06/18 2:08pm Discharge Instructions No hospital discharge instruction information available. Additional Source Comments This clinical document has been generated using [employer] software that has been certified by the Office of the National Coordinator for Health Information Technology (ONC 15.99.04.3023.[id number].[id number]) and the National Committee for Curtains [employer] Draperies Salesperson (NCQA, as an eMeasure certified technology). FOR RECORDS PERTAINING TO PATIENTS WHO ARE OR HAVE BEEN ENROLLED IN A CHEMICAL D EPENDENCY/SUBSTANCE ABUSE PROGRAM, SOME INFORMATION MAY BE OMITTED. This clinica l summary was aggregated from multiple sources. Caution should be exercised in using it in the provision of clinical care. This summary normalizes information from multiple sources, and as a consequence, information in this document may ma terially change the coding, format and clinical context of patient data. In keerthi tion, data may be omitted in some cases. CLINICAL DECISIONS SHOULD BE BASED ON T HE PRIMARY CLINICAL RECORDS. [employer]. provides no warranty or guara ntee of the accuracy or completeness of information in this document.The followi ng information is based on time limited clinical information
--- OUTSIDE RECORDS SUMMARY | 2019-11-21 07:15 | XMS REPORT | Continuity of Care Document ---
Author Organization Unknown Address Unknown Phone Unavailable Allergies Active Description Code Type Severity Reaction Onset Reported/Identified Relationship to Patient Clinical Status Yes NKANo Known Allergies NKA Miscellaneous Allergy Unknown N/A 03/15/2007 Medications There is no data. Problems Date Dx Coded Attending Type Code Diagnosis Diagnosed By 09/18/2017 HARPER DO, MARCIE Ot R05 COUGH 09/18/2017 HARPER DO, MARCIE Ot R05 COUGH 09/23/2017 HARPER DO, MARCIE Ot R05 COUGH 10/03/2017 HARPER DO, MARCIE Ot R05 COUGH 03/08/2018 HARPER DO, MARCIE Ot R00.0 TACHYCARDIA, UNSPECIFIED 03/11/2018 HARPER DO, MARCIE Ot E11.59 TYPE 2 DIABETES MELLITUS WITH OTH CIRCUL 03/11/2018 HARPER DO, MARCIE Ot E66.01 MORBID (SEVERE) OBESITY DUE TO EXCESS CA 03/11/2018 HARPER DO, MARCIE Ot E78.00 PURE HYPERCHOLESTEROLEMIA, UNSPECIFIED 03/11/2018 HARPER DO, MARCIE Ot E78.1 PURE HYPERGLYCERIDEMIA 03/11/2018 HARPER DO, MARCIE Ot G47.33 OBSTRUCTIVE SLEEP APNEA (ADULT) (PEDIATR 03/11/2018 HARPER DO, MARCIE Ot I44.39 OTHER ATRIOVENTRICULAR BLOCK 03/11/2018 HARPER DO, MARCIE Ot I48.0 PAROXYSMAL ATRIAL FIBRILLATION 03/11/2018 HARPER DO, MARCIE Ot I48.4 ATYPICAL ATRIAL FLUTTER 03/11/2018 HARPER DO, MARCIE Ot I95.9 HYPOTENSION, UNSPECIFIED 03/11/2018 HARPER DO, MARCIE Ot J30.2 OTHER SEASONAL ALLERGIC RHINITIS 03/11/2018 HARPER DO, MARCIE Ot M54.9 DORSALGIA, UNSPECIFIED 03/11/2018 HARPER DO, MARCIE Ot R00.0 TACHYCARDIA, UNSPECIFIED 03/11/2018 HARPER DO, MARCIE Ot R00.2 PALPITATIONS 03/11/2018 HARPER DO, MARCIE Ot Z68.42 BODY MASS INDEX (BMI) 45.0-49.9, ADULT 03/11/2018 HARPER DO, MARCIE Ot Z79.4 NURSING HOME (CURRENT) USE OF INSULIN 03/11/2018 HARPER DO, MARCIE Ot E11.59 TYPE 2 DIABETES MELLITUS WITH OTH CIRCUL 03/11/2018 HARPER DO, MARCIE Ot E66.01 MORBID (SEVERE) OBESITY DUE TO EXCESS CA 03/11/2018 HARPER DO, MARCIE Ot E78.00 PURE HYPERCHOLESTEROLEMIA, UNSPECIFIED 03/11/2018 HARPER DO, MARCIE Ot E78.1 PURE HYPERGLYCERIDEMIA 03/11/2018 HARPER DO, MARCIE Ot E78.5 HYPERLIPIDEMIA, UNSPECIFIED 03/11/2018 HARPER DO, MARCIE Ot G47.33 OBSTRUCTIVE SLEEP APNEA (ADULT) (PEDIATR 03/11/2018 HARPER DO, MARCIE Ot I44.39 OTHER ATRIOVENTRICULAR BLOCK 03/11/2018 HARPER DO, MARCIE Ot I48.0 PAROXYSMAL ATRIAL FIBRILLATION 03/11/2018 HARPER DO, MARCIE Ot I48.4 ATYPICAL ATRIAL FLUTTER 03/11/2018 HARPER DO, MARCIE Ot I95.9 HYPOTENSION, UNSPECIFIED 03/11/2018 HAPRER DO, MARCIE Ot J30.2 OTHER SEASONAL ALLERGIC RHINITIS 03/11/2018 HARPER DO, MARCIE Ot M54.9 DORSALGIA, UNSPECIFIED 03/11/2018 HARPER DO, MARCIE Ot R00.0 TACHYCARDIA, UNSPECIFIED 03/11/2018 HARPER DO, MARCIE Ot R00.2 PALPITATIONS 03/11/2018 HARPER DO, MARCIE Ot Z68.42 BODY MASS INDEX (BMI) 45.0-49.9, ADULT 03/11/2018 HARPER DO, MARCIE Ot Z79.4 GOLD LETTERER (CURRENT) USE OF INSULIN 03/12/2018 HARPER DO, MARCIE Ot E11.59 TYPE 2 DIABETES MELLITUS WITH OTH CIRCUL 03/12/2018 HARPER DO, MARCIE Ot E66.01 MORBID (SEVERE) OBESITY DUE TO EXCESS CA 03/12/2018 HARPER DO, MARCIE Ot E78.00 PURE HYPERCHOLESTEROLEMIA, UNSPECIFIED 03/12/2018 HARPER DO, MARCIE Ot E78.1 PURE HYPERGLYCERIDEMIA 03/12/2018 HARPER DO, MARCIE Ot G47.33 OBSTRUCTIVE SLEEP APNEA (ADULT) (PEDIATR 03/12/2018 HARPER DO, MARCIE Ot I44.39 OTHER ATRIOVENTRICULAR BLOCK 03/12/2018 HARPER DO, MARCIE Ot I48.0 PAROXYSMAL ATRIAL FIBRILLATION 03/12/2018 HARPER DO, MARCIE Ot I48.4 ATYPICAL ATRIAL FLUTTER 03/12/2018 HARPER DO, MARCIE Ot I95.9 HYPOTENSION, UNSPECIFIED 03/12/2018 HARPER DO, MARCIE Ot J30.2 OTHER SEASONAL ALLERGIC RHINITIS 03/12/2018 HARPER DO, MARCIE Ot M54.9 DORSALGIA, UNSPECIFIED 03/12/2018 HARPER DO, MARCIE Ot R00.0 TACHYCARDIA, UNSPECIFIED 03/12/2018 HARPER DO, MARCIE Ot R00.2 PALPITATIONS 03/12/2018 HARPER DO, MARCIE Ot Z68.42 BODY MASS INDEX (BMI) 45.0-49.9, ADULT 03/12/2018 HARPER DO MARCIE Ot Z79.4 GOLD LETTERER (CURRENT) USE OF INSULIN 03/22/2018 HARPER DO MARCIE Ot R00.0 TACHYCARDIA, UNSPECIFIED 03/28/2018 Jacy DUNCAN MD Ot E11 .9 TYPE 2 DIABETES MELLITUS WITHOUT COMPLIC 03/28/2018 Jacy DUNCAN MD Ot E66.01 MORBID (SEVERE) OBESITY DUE TO EXCESS CA 03/28/2018 Jacy DUNCAN MD Ot G47.33 OBSTRUCTIVE SLEEP APNEA (ADULT) (PEDIATR 03/28/2018 Jacy DUNCAN MD Ot I10 ESSENTIAL (PRIMARY) HYPERTENSION 03/28/2018 Jacy DUNCAN MD Ot I44.39 OTHER ATRIOVENTRICULAR BLOCK 03/28/2018 Jacy DUNCAN MD Ot I48.92 UNSPECIFIED ATRIAL FLUTTER 03/28/2018 Jacy DUNCAN MD Ot Z68.42 BODY MASS INDEX (BMI) 45.0-49.9, ADULT 03/28/2018 Jacy DUNCAN MD Ot Z79.01 GOLD LETTERER (CURRENT) USE OF ANTICOAGULANT 03/28/2018 Jacy DUNCAN MD Ot Z79 .4 GOLD LETTERER (CURRENT) USE OF INSULIN 03/28/2018 Jacy DUNCAN MD Ot Z79.899 OTHER GOLD LETTERER (CURRENT) DRUG THERAPY 04/02/2018 Jacy DUNCAN MD Ot E11 .9 TYPE 2 DIABETES MELLITUS WITHOUT COMPLIC 04/02/2018 Jacy DUNCAN MD Ot E66.01 MORBID (SEVERE) OBESITY DUE TO EXCESS CA 04/02/2018 Jacy DUNCAN MD Ot G47.33 OBSTRUCTIVE SLEEP APNEA (ADULT) (PEDIATR 04/02/2018 Jacy DUNCAN MD Ot I10 ESSENTIAL (PRIMARY) HYPERTENSION 04/02/2018 Jacy DUNCAN MD Ot I44.39 OTHER ATRIOVENTRICULAR BLOCK 04/02/2018 Jacy DUNCAN MD Ot I48.92 UNSPECIFIED ATRIAL FLUTTER 04/02/2018 Jacy DUNCAN MD Ot Z68.42 BODY MASS INDEX (BMI) 45.0-49.9, ADULT 04/02/2018 Jacy DUNCAN MD Ot Z79.01 GOLD LETTERER (CURRENT) USE OF ANTICOAGULANT 04/02/2018 Jacy DUNCAN MD Ot Z79 .4 NURSING HOME (CURRENT) USE OF INSULIN 04/02/2018 Jacy DUNCAN MD Ot Z79.899 OTHER GOLD LETTERER (CURRENT) DRUG THERAPY 04/04/2018 MARCIE HARPER DO Ot R00.0 TACHYCARDIA, UNSPECIFIED 05/06/2018 Jacy DUNCAN MD Ot Z01.818 ENCOUNTER FOR OTHER PREPROCEDURAL EXAMIN 05/14/2018 Jacy DUNCAN MD Ot E11 .9 TYPE 2 DIABETES MELLITUS WITHOUT COMPLIC 05/14/2018 Jacy DUNCAN MD Ot E66.01 MORBID (SEVERE) OBESITY DUE TO EXCESS CA 05/14/2018 Jacy DUNCAN MD Ot G47.33 OBSTRUCTIVE SLEEP APNEA (ADULT) (PEDIATR 05/14/2018 Jacy DUNCAN MD Ot I10 ESSENTIAL (PRIMARY) HYPERTENSION 05/14/2018 Jacy DUNCAN MD Ot I44 .1 ATRIOVENTRICULAR BLOCK, SECOND DEGREE 05/14/2018 Jacy DUNCAN MD Ot I48 .3 TYPICAL ATRIAL FLUTTER 05/14/2018 Jacy DUNCAN MD Ot Z68.42 BODY MASS INDEX (BMI) 45.0-49.9, ADULT 05/14/2018 Jacy DUNCAN MD, Ot Z79.01 NURSING HOME (CURRENT) USE OF ANTICOAGULANT 05/14/2018 Jacy DUNCAN MD Ot Z79 .4 GOLD LETTERER (CURRENT) USE OF INSULIN 05/14/2018 Jacy DUNCAN MD, Ot Z79.899 OTHER GOLD LETTERER (CURRENT) DRUG THERAPY 06/30/2018 HARPER DO, MARCIE Ot R05 COUGH 06/30/2018 HARPER DO, MARCIE Ot R00.0 TACHYCARDIA, UNSPECIFIED 07/01/2018 HARPER DO, MARCIE Ot R05 COUGH 07/01/2018 HARPER DO, MARCIE Ot R00.0 TACHYCARDIA, UNSPECIFIED 07/01/2018 HARPER DO, MARCIE Ot R05 COUGH 07/01/2018 HARPER DO, MARCIE Ot R00.0 TACHYCARDIA, UNSPECIFIED 07/03/2018 HARPER DO, MARCIE Ot R05 COUGH 07/03/2018 HARPER DO, MARCIE Ot R00.0 TACHYCARDIA, UNSPECIFIED 08/27/2018 HARPER DO, MARCIE Ot R05 COUGH 08/27/2018 HARPER DO, MARCIE Ot R00.0 TACHYCARDIA, UNSPECIFIED 11/26/2018 HARPER DO, MARCIE Ot R05 COUGH 11/26/2018 HARPER DO, MARCIE Ot R00.0 TACHYCARDIA, UNSPECIFIED 11/26/2018 Jacy DUNCAN MD Ot I48 .1 PERSISTENT ATRIAL FIBRILLATION 12/04/2018 Jacy DUNCAN MD Ot I48 .1 PERSISTENT ATRIAL FIBRILLATION 12/10/2018 Jacy DUNCAN MD Ot I48 .1 PERSISTENT ATRIAL FIBRILLATION 12/25/2018 Jacy DUNCAN MD Ot E11 .9 TYPE 2 DIABETES MELLITUS WITHOUT COMPLIC 12/25/2018 Jacy DUNCAN MD Ot E66.01 MORBID (SEVERE) OBESITY DUE TO EXCESS CA 12/25/2018 Jacy DUNCAN MD Ot G47.33 OBSTRUCTIVE SLEEP APNEA (ADULT) (PEDIATR 12/25/2018 Jacy DUNCAN MD Ot I10 ESSENTIAL (PRIMARY) HYPERTENSION 12/25/2018 Jacy DUNCAN MD Ot I34 .0 NONRHEUMATIC MITRAL (VALVE) INSUFFICIENC 12/25/2018 Jacy DUNCAN MD Ot I44 .1 ATRIOVENTRICULAR BLOCK, SECOND DEGREE 12/25/2018 Jacy DUNCAN MD, Ot I48 .0 PAROXYSMAL ATRIAL FIBRILLATION 12/25/2018 Jacy DUNCAN MD, Ot I48 .4 ATYPICAL ATRIAL FLUTTER 12/25/2018 Jacy DUNCAN MD, Ot Z68.42 BODY MASS INDEX (BMI) 45.0-49.9, ADULT 12/25/2018 Jacy DUNCAN MD, Ot Z79.01 NURSING HOME (CURRENT) USE OF ANTICOAGULANT 12/25/2018 Jacy DUNCAN MD, Ot Z79 .4 GOLD LETTERER (CURRENT) USE OF INSULIN 12/25/2018 Jacy DUNCAN MD, Ot Z79.899 OTHER GOLD LETTERER (CURRENT) DRUG THERAPY 01/25/2019 Jacy DUNCAN MD, Ot I48 .1 PERSISTENT ATRIAL FIBRILLATION 08/01/2019 MEREDITH DO, MARCIE Ot E11.9 TYPE 2 DIABETES MELLITUS WITHOUT COMPLIC 08/01/2019 MEREDITH DO MARCIE Ot E66.01 MORBID (SEVERE) OBESITY DUE TO EXCESS CA 08/01/2019 MEREDITH DO MARCIE Ot E78.00 PURE HYPERCHOLESTEROLEMIA, UNSPECIFIED 08/01/2019 MEREDITH DO MARCIE Ot G47.33 OBSTRUCTIVE SLEEP APNEA (ADULT) (PEDIATR 08/01/2019 MEREDITH DO, MARCIE Ot G89.29 OTHER CHRONIC PAIN 08/01/2019 MEREDITH DO MARCIE Ot I11.0 HYPERTENSIVE HEART DISEASE WITH HEART FA 08/01/2019 MEREDITH DO MARCIE Ot I34.0 NONRHEUMATIC MITRAL (VALVE) INSUFFICIENC 08/01/2019 MEREDITH DO MARCIE Ot I48.0 PAROXYSMAL ATRIAL FIBRILLATION 08/01/2019 MEREDITH DO MARCIE Ot I49.5 SICK SINUS SYNDROME 08/01/2019 MEREDITH DO MARCIE Ot 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 08/01/2019 MEREDITH DO MARCIE Ot J96.01 ACUTE RESPIRATORY FAILURE WITH HYPOXIA 08/01/2019 MEREDITH DO MARCIE Ot M54.9 DORSALGIA, UNSPECIFIED 08/01/2019 MARCIE HARPER DO Ot Z68.42 BODY MASS INDEX (BMI) 45.0-49.9, ADULT 08/01/2019 MARCIE HARPER DO Ot Z79.01 NURSING HOME (CURRENT) USE OF ANTICOAGULANT 08/01/2019 MARCIE HARPER DO Ot Z79.4 GOLD LETTERER (CURRENT) USE OF INSULIN 08/01/2019 MARCIE HARPER DO Ot Z87.89 1 PERSONAL HISTORY OF NICOTINE DEPENDENCE Procedures Code Description Performed By Per formed On [id number] RE STORATION OF CARDIAC RHYTHM, SINGLE 03/08/2018 [id number] RE STORATION OF CARDIAC RHYTHM, SINGLE 03/10/2018 [id number] SISTANCE WITH RESPIRATORY VENTILATION, 07/30/2019 Results Test Result Range Bacterial blood culture - 03/07/18 17:20 Bacterial blood culture NG NRG Capillary blood glucose measurement by g lucometer (mass/volume) - 03/08/18 12:25 Capillary blood glucose measurement by glucometer (mas s/volume) 242 mg/dL 70-110 Capillary blood glucose measurement by g lucometer (mass/volume) - 03/08/18 17:36 Capillary blood glucose measurement by glucometer (mas s/volume) 304 mg/dL 70-110 Capillary blood glucose measurement by g lucometer (mass/volume) - 03/08/18 20:49 Capillary blood glucose measurement by glucometer (mas s/volume) 232 mg/dL 70-110 Capillary blood glucose measurement by g lucometer (mass/volume) - 03/09/18 06:25 Capillary blood glucose measurement by glucometer (mas s/volume) 120 mg/dL 70-110 Capillary blood glucose measurement by g lucometer (mass/volume) - 03/09/18 11:08 Capillary blood glucose measurement by glucometer (mas s/volume) 151 mg/dL 70-110 Capillary blood glucose measurement by g lucometer (mass/volume) - 03/09/18 16:50 Capillary blood glucose measurement by glucometer (mas s/volume) 258 mg/dL 70-110 Capillary blood glucose measurement by g lucometer (mass/volume) - 03/09/18 20:52 Capillary blood glucose measurement by glucometer (mas s/volume) 166 mg/dL 70-110 Capillary blood glucose measurement by g lucometer (mass/volume) - 03/10/18 05:56 Capillary blood glucose measurement by glucometer (mas s/volume) 141 mg/dL 70-110 Capillary blood glucose measurement by g lucometer (mass/volume) - 03/10/18 11:04 Capillary blood glucose measurement by glucometer (mas s/volume) 183 mg/dL 70-110 Capillary blood glucose measurement by g lucometer (mass/volume) - 03/10/18 18:56 Capillary blood glucose measurement by glucometer (mas s/volume) 104 mg/dL 70-110 Capillary blood glucose measurement by g lucometer (mass/volume) - 03/10/18 21:04 Capillary blood glucose measurement by glucometer (mas s/volume) 302 mg/dL 70-110 Complete blood count (CBC) with automate d white blood cell (WBC) differential - 03/11/18 03:25 Blood leukocytes automated count (number/volume) 7.3 10*3/uL 4.3-11.0 Blood erythrocytes automated count (number/volume) 4.34 10*6/uL 4.35-5.85 Venous blood hemoglobin measurement (mass/volume) 12.6 g/dL 13.3-17.7 Blood hematocrit (volume fraction) 37 % 40-54 Automated erythrocyte mean corpuscular volume 86 [ foz_us] 80-99 Automated erythrocyte mean corpuscular h emoglobin (mass per erythrocyte) 29 pg 25-34 Automated erythrocyte mean corpuscular h emoglobin concentration measurement (mass/volume) 34 g/dL 32-36 Automated erythrocyte distribution width ratio 14. 2 % 10.0- 14.5 Automated blood platelet count (count/volume) 208 10*3/uL 130-400 Automated blood platelet mean volume measurement 10.6 [foz_us] 7.4-10.4 Automated blood neutrophils/100 leukocytes 70 % 42-75 Automated blood lymphocytes/100 leukocytes 19 % 12-44 Blood monocytes/100 leukocytes 9 % 0-12 Automated blood eosinophils/100 leukocytes 2 % 0-10 Automated blood basophils/100 leukocytes 0 % 0-10 Blood neutrophils automated count (number/volume) 5.2 10*3 1.8-7.8 Blood lymphocytes automated count (number/volume) 1.4 10*3 1.0-4.0 Blood monocytes automated count (number/volume) 0. 6 10*3 0.0-1.0 Automated eosinophil count 0.1 10*3/uL 0 .0-0.3 Automated blood basophil count (count/volume) 0.0 10*3/uL 0.0-0.1 Comprehensive metabolic panel - 03/11/18 03:25 Serum or plasma sodium measurement (moles/volume) 138 mmol/L 135-145 Serum or plasma potassium measurement (moles/volume) 3.9 mmol/L 3.6-5.0 Serum or plasma chloride measurement (moles/volume) 105 mmol/L 98-107 Carbon dioxide 23 mmol/L 21-32 Serum or plasma anion gap determination (moles/volume) 10 mmol/L 5-14 Serum or plasma urea nitrogen measurement (mass/volume ) 18 mg/dL 7-18 Serum or plasma creatinine measurement (mass/volume) 0.95 mg/dL 0.60-1.30 Serum or plasma urea nitrogen/creatinine mass ratio 19 NRG Serum or plasma creatinine measurement w ith calculation of estimated glomerular filtration rate > NRG Serum or plasma glucose measurement (mass/volume) 113 mg/dL 70-105 Serum or plasma calcium measurement (mass/volume) 9.5 mg/dL 8.5-10.1 Serum or plasma total bilirubin measurement (mass/volu me) 0.5 mg/dL 0.1-1.0 Serum or plasma alkaline phosphatase eligio surement (enzymatic activity/volume) 36 U/L 40-136 Serum or plasma aspartate aminotransfera se measurement (enzymatic activity/volume) 38 U/L 5-34 Serum or plasma alanine aminotransferase measurement (enzymatic activity/volume) 60 U/L 0-55 Serum or plasma protein measurement (mass/volume) 7.4 g/dL 6.4-8.2 Serum or plasma albumin measurement (mass/volume) 3.9 g/dL 3.2-4.5 CALCIUM CORRECTED 9.6 mg/dL 8.5-10.1 THYROID STIMULATING HORMONE - 03/11/18 0 3:25 THYROID STIMULATING HORMONE 6.33 u[iU]/mL 0.35-4.94 Capillary blood glucose measurement by g lucometer (mass/volume) - 03/11/18 06:24 Capillary blood glucose measurement by glucometer (mas s/volume) 130 mg/dL 70-110 Capillary blood glucose measurement by g lucometer (mass/volume) - 03/11/18 11:57 Capillary blood glucose measurement by glucometer (mas s/volume) 145 mg/dL 70-110 Automated blood complete blood count (he mogram) panel - 05/13/18 07:08 Blood leukocytes automated count (number/volume) 7.3 10*3/uL 4.3-11.0 Blood erythrocytes automated count (number/volume) 4.99 10*6/uL 4.35-5.85 Venous blood hemoglobin measurement (mass/volume) 13.8 g/dL 13.3-17.7 Blood hematocrit (volume fraction) 41 % 40-54 Automated erythrocyte mean corpuscular volume 83 [ foz_us] 80-99 Automated erythrocyte mean corpuscular h emoglobin (mass per erythrocyte) 28 pg 25-34 Automated erythrocyte mean corpuscular h emoglobin concentration measurement (mass/volume) 33 g/dL 32-36 Automated erythrocyte distribution width ratio 14. 3 % 10.0- 14.5 Automated blood platelet count (count/volume) 235 10*3/uL 130-400 Automated blood platelet mean volume measurement 10.8 [foz_us] 7.4-10.4 PT panel in platelet poor plasma by coag ulation assay - 05/13/18 07:08 Prothrombin time (PT) in platelet poor plasma by coagu lation assay 13.5 s 12.2-14.7 INR in platelet poor plasma or blood by coagulation as say 1.0 0.8-1.4 Activated partial thromboplastin time (a PTT) in platelet poor plasma bycoagulation assay - 05/13/18 07:08 Activated partial thromboplastin time (a PTT) in platelet poor plasma bycoagulation assay 27 s 24-35 Comprehensive metabolic panel - 05/13/18 07:08 Serum or plasma sodium measurement (moles/volume) 139 mmol/L 135-145 Serum or plasma potassium measurement (moles/volume) 4.3 mmol/L 3.6-5.0 Serum or plasma chloride measurement (moles/volume) 104 mmol/L 98-107 Carbon dioxide 24 mmol/L 21-32 Serum or plasma anion gap determination (moles/volume) 11 mmol/L 5-14 Serum or plasma urea nitrogen measurement (mass/volume ) 18 mg/dL 7-18 Serum or plasma creatinine measurement (mass/volume) 1.00 mg/dL 0.60-1.30 Serum or plasma urea nitrogen/creatinine mass ratio 18 NRG Serum or plasma creatinine measurement w ith calculation of estimated glomerular filtration rate > NRG Serum or plasma glucose measurement (mass/volume) 179 mg/dL 70-105 Serum or plasma calcium measurement (mass/volume) 9.4 mg/dL 8.5-10.1 Serum or plasma total bilirubin measurement (mass/volu me) 0.4 mg/dL 0.1-1.0 Serum or plasma alkaline phosphatase eligio surement (enzymatic activity/volume) 47 U/L 40-136 Serum or plasma aspartate aminotransfera se measurement (enzymatic activity/volume) 23 U/L 5-34 Serum or plasma alanine aminotransferase measurement (enzymatic activity/volume) 37 U/L 0-55 Serum or plasma protein measurement (mass/volume) 8.1 g/dL 6.4-8.2 Serum or plasma albumin measurement (mass/volume) 4.2 g/dL 3.2-4.5 CALCIUM CORRECTED 9.2 mg/dL 8.5-10.1 Methicillin resistant Staphylococcus aur eus (MRSA) screening culture - 05/13/18 07:08 Methicillin resistant Staphylococcus aureus (MRSA) scr eening culture NEG NRG Capillary blood glucose measurement by g lucometer (mass/volume) - 05/13/18 11:55 Capillary blood glucose measurement by glucometer (mas s/volume) 249 mg/dL 70-110 Capillary blood glucose measurement by g lucometer (mass/volume) - 05/13/18 16:43 Capillary blood glucose measurement by glucometer (mas s/volume) 244 mg/dL 70-110 Capillary blood glucose measurement by g lucometer (mass/volume) - 05/13/18 20:34 Capillary blood glucose measurement by glucometer (mas s/volume) 362 mg/dL 70-110 Capillary blood glucose measurement by g lucometer (mass/volume) - 05/14/18 07:00 Capillary blood glucose measurement by glucometer (mas s/volume) 107 mg/dL 70-110 Complete blood count (CBC) with automate d white blood cell (WBC) differential - 07/30/19 08:25 Blood leukocytes automated count (number/volume) 9.4 10*3/uL 4.3-11.0 Blood erythrocytes automated count (number/volume) 4.72 10*6/uL 4.35-5.85 Venous blood hemoglobin measurement (mass/volume) 13.4 g/dL 13.3-17.7 Blood hematocrit (volume fraction) 41 % 40-54 Automated erythrocyte mean corpuscular volume 86 [ foz_us] 80-99 Automated erythrocyte mean corpuscular h emoglobin (mass per erythrocyte) 28 pg 25-34 Automated erythrocyte mean corpuscular h emoglobin concentration measurement (mass/volume) 33 g/dL 32-36 Automated erythrocyte distribution width ratio 15. 2 % 10.0- 14.5 Automated blood platelet count (count/volume) 200 10*3/uL 130-400 Automated blood platelet mean volume measurement 11.3 [foz_us] 7.4-10.4 Automated blood neutrophils/100 leukocytes 71 % 42-75 Automated blood lymphocytes/100 leukocytes 20 % 12-44 Blood monocytes/100 leukocytes 7 % 0-12 Automated blood eosinophils/100 leukocytes 1 % 0-10 Automated blood basophils/100 leukocytes 0 % 0-10 Blood neutrophils automated count (number/volume) 6.7 10*3 1.8-7.8 Blood lymphocytes automated count (number/volume) 1.9 10*3 1.0-4.0 Blood monocytes automated count (number/volume) 0. 7 10*3 0.0-1.0 Automated eosinophil count 0.1 10*3/uL 0 .0-0.3 Automated blood basophil count (count/volume) 0.0 10*3/uL 0.0-0.1 PT panel in platelet poor plasma by coag ulation assay - 07/30/19 08:25 Prothrombin time (PT) in platelet poor plasma by coagu lation assay 14.1 s 12.2-14.7 INR in platelet poor plasma or blood by coagulation as say 1.1 0.8-1.4 Activated partial thromboplastin time (a PTT) in platelet poor plasma bycoagulation assay - 07/30/19 08:25 Activated partial thromboplastin time (a PTT) in platelet poor plasma bycoagulation assay 30 s 24-35 Comprehensive metabolic panel - 07/30/19 08:25 Serum or plasma sodium measurement (moles/volume) 140 mmol/L 135-145 Serum or plasma potassium measurement (moles/volume) 4.0 mmol/L 3.6-5.0 Serum or plasma chloride measurement (moles/volume) 106 mmol/L 98-107 Carbon dioxide 21 mmol/L 21-32 Serum or plasma anion gap determination (moles/volume) 13 mmol/L 5-14 Serum or plasma urea nitrogen measurement (mass/volume ) 18 mg/dL 7-18 Serum or plasma creatinine measurement (mass/volume) 1.24 mg/dL 0.60-1.30 Serum or plasma urea nitrogen/creatinine mass ratio 15 NRG Serum or plasma creatinine measurement w ith calculation of estimated glomerular filtration rate 59 NRG Serum or plasma glucose measurement (mass/volume) 160 mg/dL 70-105 Serum or plasma calcium measurement (mass/volume) 9.5 mg/dL 8.5-10.1 Serum or plasma total bilirubin measurement (mass/volu me) 0.3 mg/dL 0.1-1.0 Serum or plasma alkaline phosphatase eligio surement (enzymatic activity/volume) 51 U/L 40-136 Serum or plasma aspartate aminotransfera se measurement (enzymatic activity/volume) 37 U/L 5-34 Serum or plasma alanine aminotransferase measurement (enzymatic activity/volume) 62 U/L 0-55 Serum or plasma protein measurement (mass/volume) 7.9 g/dL 6.4-8.2 Serum or plasma albumin measurement (mass/volume) 4.1 g/dL 3.2-4.5 CALCIUM CORRECTED 9.4 mg/dL 8.5-10.1 Magnesium - 07/30/19 08:25 Magnesium 1.6 mg/dL 1.6-2.4 Myoglobin, serum - 07/30/19 08:25 Myoglobin, serum 37.5 ng/mL 10.0-92.0 Serum or plasma troponin i.cardiac measu rement (mass/volume) - 07/30/19 08:25 Serum or plasma troponin i.cardiac measurement (mass/v olume) < ng/mL <0.028 Serum or plasma lithium measurement (mol es/volume) - 07/30/19 08:25 BNP PT 113.6 pg/mL <100.0 Bacterial blood culture - 07/30/19 08:25 Bacterial blood culture NG NRG Arterial blood gas measurement - 0 08:49 Blood pCO2 43 mm[Hg] 35-45 Blood pO2 81 mm[Hg] 79-93 Arterial blood bicarbonate measurement (moles/volume) 24 mmol/L 23-27 Arterial blood base excess by calculation -0.9 mmo l/L -2.5-2.5 Arterial blood oxygen saturation measurement 96 % 94-100 * Inhaled oxygen flow rate 30% NRG Arterial blood pH measurement with patient temperature correction 7.36 7.37-7.43 Arterial blood carbon dioxide, total measurement (mole s/volume) 25.2 mmol/L 21.0-31.0 Body site LEFT RADIAL NRG Assessment of wrist artery patency prior to arterial p uncture POSITIVE NRG Setting of ventilation mode NO NR G Measurement of body temperature 36.5 NRG Bacterial blood culture - 07/30/19 10:34 Bacterial blood culture NG NRG Blood lactic acid measurement (moles/vol ume) - 07/30/19 11:05 Blood lactic acid measurement (moles/volume) 1.84 mmol/L 0.50-2.00 Capillary blood glucose measurement by g lucometer (mass/volume) - 07/30/19 12:29 Capillary blood glucose measurement by glucometer (mas s/volume) 149 mg/dL 70-110 Capillary blood glucose measurement by g lucometer (mass/volume) - 07/30/19 15:32 Capillary blood glucose measurement by glucometer (mas s/volume) 111 mg/dL 70-110 Capillary blood glucose measurement by g lucometer (mass/volume) - 07/30/19 20:08 Capillary blood glucose measurement by glucometer (mas s/volume) 127 mg/dL 70-110 Complete blood count (CBC) with automate d white blood cell (WBC) differential - 07/31/19 03:01 Blood leukocytes automated count (number/volume) 6.3 10*3/uL 4.3-11.0 Blood erythrocytes automated count (number/volume) 4.20 10*6/uL 4.35-5.85 Venous blood hemoglobin measurement (mass/volume) 11.8 g/dL 13.3-17.7 Blood hematocrit (volume fraction) 36 % 40-54 Automated erythrocyte mean corpuscular volume 86 [ foz_us] 80-99 Automated erythrocyte mean corpuscular h emoglobin (mass per erythrocyte) 28 pg 25-34 Automated erythrocyte mean corpuscular h emoglobin concentration measurement (mass/volume) 33 g/dL 32-36 Automated erythrocyte distribution width ratio 14. 9 % 10.0- 14.5 Automated blood platelet count (count/volume) 175 10*3/uL 130-400 Automated blood platelet mean volume measurement 11.5 [foz_us] 7.4-10.4 Automated blood neutrophils/100 leukocytes 73 % 42-75 Automated blood lymphocytes/100 leukocytes 19 % 12-44 Blood monocytes/100 leukocytes 6 % 0-12 Automated blood eosinophils/100 leukocytes 1 % 0-10 Automated blood basophils/100 leukocytes 0 % 0-10 Blood neutrophils automated count (number/volume) 4.6 10*3 1.8-7.8 Blood lymphocytes automated count (number/volume) 1.2 10*3 1.0-4.0 Blood monocytes automated count (number/volume) 0. 4 10*3 0.0-1.0 Automated eosinophil count 0.1 10*3/uL 0 .0-0.3 Automated blood basophil count (count/volume) 0.0 10*3/uL 0.0-0.1 Lipid 1996 panel - 07/31/19 03:01 Serum or plasma triglyceride measurement (mass/volume) 194 mg/dL <150 Serum or plasma cholesterol measurement (mass/volume) 137 mg/dL < 200 Serum or plasma cholesterol in HDL measurement (mass/v olume) 35 mg/dL 40-60 Cholesterol in LDL [mass/volume] in serum or plasma by direct assay 76 mg/dL 1-129 Serum or plasma cholesterol in VLDL measurement (mass/ volume) 39 mg/dL 5-40 Comprehensive metabolic panel - 07/31/19 03:01 Serum or plasma sodium measurement (moles/volume) 143 mmol/L 135-145 Serum or plasma potassium measurement (moles/volume) 3.8 mmol/L 3.6-5.0 Serum or plasma chloride measurement (moles/volume) 106 mmol/L 98-107 Carbon dioxide 24 mmol/L 21-32 Serum or plasma anion gap determination (moles/volume) 13 mmol/L 5-14 Serum or plasma urea nitrogen measurement (mass/volume ) 17 mg/dL 7-18 Serum or plasma creatinine measurement (mass/volume) 1.19 mg/dL 0.60-1.30 Serum or plasma urea nitrogen/creatinine mass ratio 14 NRG Serum or plasma creatinine measurement w ith calculation of estimated glomerular filtration rate > NRG Serum or plasma glucose measurement (mass/volume) 77 mg/dL 70-105 Serum or plasma calcium measurement (mass/volume) 9.0 mg/dL 8.5-10.1 Serum or plasma total bilirubin measurement (mass/volu me) 0.4 mg/dL 0.1-1.0 Serum or plasma alkaline phosphatase eligio surement (enzymatic activity/volume) 34 U/L 40-136 Serum or plasma aspartate aminotransfera se measurement (enzymatic activity/volume) 24 U/L 5-34 Serum or plasma alanine aminotransferase measurement (enzymatic activity/volume) 46 U/L 0-55 Serum or plasma protein measurement (mass/volume) 7.0 g/dL 6.4-8.2 Serum or plasma albumin measurement (mass/volume) 3.8 g/dL 3.2-4.5 CALCIUM CORRECTED 9.2 mg/dL 8.5-10.1 Serum or plasma lithium measurement (mol es/volume) - 07/31/19 03:01 BNP PT 146.4 pg/mL <100.0 Capillary blood glucose measurement by g lucometer (mass/volume) - 07/31/19 09:33 Capillary blood glucose measurement by glucometer (mas s/volume) 180 mg/dL 70-110 Capillary blood glucose measurement by g lucometer (mass/volume) - 07/31/19 15:00 Capillary blood glucose measurement by glucometer (mas s/volume) 189 mg/dL 70-110 Capillary blood glucose measurement by g lucometer (mass/volume) - 07/31/19 19:29 Capillary blood glucose measurement by glucometer (mas s/volume) 126 mg/dL 70-110 Complete blood count (CBC) with automate d white blood cell (WBC) differential - 08/01/19 03:35 Blood leukocytes automated count (number/volume) 7.4 10*3/uL 4.3-11.0 Blood erythrocytes automated count (number/volume) 4.43 10*6/uL 4.35-5.85 Venous blood hemoglobin measurement (mass/volume) 12.5 g/dL 13.3-17.7 Blood hematocrit (volume fraction) 37 % 40-54 Automated erythrocyte mean corpuscular volume 84 [ foz_us] 80-99 Automated erythrocyte mean corpuscular h emoglobin (mass per erythrocyte) 28 pg 25-34 Automated erythrocyte mean corpuscular h emoglobin concentration measurement (mass/volume) 33 g/dL 32-36 Automated erythrocyte distribution width ratio 14. 7 % 10.0- 14.5 Automated blood platelet count (count/volume) 189 10*3/uL 130-400 Automated blood platelet mean volume measurement 10.9 [foz_us] 7.4-10.4 Automated blood neutrophils/100 leukocytes 72 % 42-75 Automated blood lymphocytes/100 leukocytes 19 % 12-44 Blood monocytes/100 leukocytes 7 % 0-12 Automated blood eosinophils/100 leukocytes 2 % 0-10 Automated blood basophils/100 leukocytes 0 % 0-10 Blood neutrophils automated count (number/volume) 5.4 10*3 1.8-7.8 Blood lymphocytes automated count (number/volume) 1.4 10*3 1.0-4.0 Blood monocytes automated count (number/volume) 0. 5 10*3 0.0-1.0 Automated eosinophil count 0.1 10*3/uL 0 .0-0.3 Automated blood basophil count (count/volume) 0.0 10*3/uL 0.0-0.1 Comprehensive metabolic panel - 08/01/19 03:35 Serum or plasma sodium measurement (moles/volume) 140 mmol/L 135-145 Serum or plasma potassium measurement (moles/volume) 3.8 mmol/L 3.6-5.0 Serum or plasma chloride measurement (moles/volume) 107 mmol/L 98-107 Carbon dioxide 22 mmol/L 21-32 Serum or plasma anion gap determination (moles/volume) 11 mmol/L 5-14 Serum or plasma urea nitrogen measurement (mass/volume ) 15 mg/dL 7-18 Serum or plasma creatinine measurement (mass/volume) 0.99 mg/dL 0.60-1.30 Serum or plasma urea nitrogen/creatinine mass ratio 15 NRG Serum or plasma creatinine measurement w ith calculation of estimated glomerular filtration rate > NRG Serum or plasma glucose measurement (mass/volume) 88 mg/dL 70-105 Serum or plasma calcium measurement (mass/volume) 9.1 mg/dL 8.5-10.1 Serum or plasma total bilirubin measurement (mass/volu me) 0.4 mg/dL 0.1-1.0 Serum or plasma alkaline phosphatase eligio surement (enzymatic activity/volume) 32 U/L 40-136 Serum or plasma aspartate aminotransfera se measurement (enzymatic activity/volume) 29 U/L 5-34 Serum or plasma alanine aminotransferase measurement (enzymatic activity/volume) 45 U/L 0-55 Serum or plasma protein measurement (mass/volume) 7.3 g/dL 6.4-8.2 Serum or plasma albumin measurement (mass/volume) 3.8 g/dL 3.2-4.5 CALCIUM CORRECTED 9.3 mg/dL 8.5-10.1 Capillary blood glucose measurement by g lucometer (mass/volume) - 08/01/19 09:40 Capillary blood glucose measurement by glucometer (mas s/volume) 218 mg/dL 70-110 Coronavirus SARS-CoV-2 SO 2018 - 0 13:20 Coronavirus Ab [Units/volume] in Serum Negative Negative Encounters ACCT No. Visit Date/Time Discharge Status Pt. Type Provider Facility Loc./Unit Complaint [id number] 05/10/2018 13:57:00 05/10/2018 23:59: 00 DIS Outpatient Vincent Umanzor [id number] 07/30/2019 10:20:00 020 13:55:00 DIS Inpatient MARCIE HARPER DO [facility] CSD HEART FAILURE HYPOXIA [id number] 12/05/2018 00:11:00 23:59:59 CLS Preadmit Jacy DUNCAN MD [facility] CARD PERSISTENT AFIB W/ PVR [id number] 09/05/2018 10:08:00 00:01:00 DIS Outpatient Jacy DUNCAN MD [facility] CARD PERSISTENT AFIB W/ PVR [id number] 11/28/2018 07:47:00 23:59:59 CLS Outpatient Jacy DUNCAN MD [facility] CATH AFIB [id number] 05/13/2018 06:18:00 10:57:00 DIS Outpatient Jacy DUNCAN MD [facility] CARD TYPICAL ATRIAL FLUTTER [id number] 05/06/2018 06:10:00 14:32:00 DIS Outpatient Jacy DUNCAN MD [facility] PREOP RIGHT ELECTROPHYSIOLOGY [id number] 03/28/2018 07:41:00 10:54:00 DIS Outpatient Jacy DUNCAN MD [facility] CATH AF W/ RVR [id number] 03/07/2018 16:46:00 018 16:20:00 DIS Inpatient HARPER DO, MARCIE [facility] ICU TACHYCARDIA [id number] 03/06/2018 09:02:00 018 23:59:59 CLS Outpatient HARPER DO, MARCIE [facility] CARD R00.0 TACHYCARDIA [id number] 09/17/2017 09:08:00 018 23:59:59 CLS Outpatient HARPER DO, MARCIE [facility] RAD COUGH [id number] 11/05/2016 22:22:00 017 22:22:00 CAN Outpatient ALEXANDRE ALEXANDRE MD [facility] OCC [id number] 11/04/2016 22:09:00 017 22:09:00 CAN Preadmit ALEXANDRE ALEXANDRE MD [facility] ER UA [id number] 11/21/2019 08:00:00 P EN Preadmit DAKOTA MUNOZ, Jacy VÁSQUEZ [facility] CATH PERSISTENT AF [id number] 06/25/2014 09:27:10 06/25/2014 23:59: 59 CLS Outpatient Tom Salomon
[2019-11-21] MEDS ORDERED: fentaNYL INJECTION 100 MCG/2 ML AMP ONE (07:18)
[2019-11-21] MEDS ORDERED: ROCURONIUM 10 MG/ML 5 ML SYRINGE IV ONE ×2 (07:18→09:34)
[2019-11-21] MEDS ORDERED: ONDANSETRON 4 MG/2 ML (SDV) Z0FRAN ONE (07:18)
[2019-11-21] MEDS ORDERED: proPOfol 200 MG/20 ML (DIPRIVAN) VIAL IV ONE (07:18)
[2019-11-21] MEDS ORDERED: MIDAZOLAM 2 MG/2 ML (VERSED) VIAL ONE (07:18)
[2019-11-21] MEDS ORDERED: LIDOCAINE BOLUS 100 MG/5 ML (IMS) SYR ONE (07:18)
[2019-11-21] MEDS ORDERED: SUCCINYLCHOLINE INJ 100 MG/5 ML SYR ONE (07:19)
[2019-11-21] MEDS ORDERED: NS IV 1000 ML 1,000 ML IV SCH (07:24)
[2019-11-21] MEDS ORDERED: HEParin (CATH LAB) 3,000 ML IV ONE (07:26)
[2019-11-21] MEDS ORDERED: HEParin 1000 UNIT/ML (10ML VIAL) FOR BOLUS ONE ×6 (07:26→13:49)
[2019-11-21] MEDS ORDERED: NS IV 1000 ML 1,000 ML ONE ×5 (07:26→13:39)
[2019-11-21] MEDS ORDERED: LIDOCAINE 1% INJ 20 ML 20 ML VIAL ONE (07:26)
[2019-11-21] MEDS ORDERED: ISOPROTERENOL 0.2 MG/D5W 50 ML IV ONE (07:30)
[2019-11-21 07:56] LABS: HEMOGLOBIN 14.7 G/DL (13.3-17.7); MEAN PLATELET VOLUME 10.5 FL (7.4-10.4); RED CELL DISTRIBUTION WIDTH 14.9 % (10.0-14.5); WHITE BLOOD COUNT 9.3 10^3/uL (4.3-11.0)
[2019-11-21] MEDS ORDERED: FURO40TA4 PO ×2 (07:59)
[2019-11-21] MEDS ORDERED: FEXO-14 PO (08:00)
[2019-11-21 08:06] LABS: INR 1.1 (0.8-1.4); PROTHROMBIN TIME PATIENT 14.7 SEC (12.2-14.7)
[2019-11-21 08:15] LABS: ALBUMIN 4.1 GM/DL (3.2-4.5); BILIRUBIN,TOTAL 0.4 MG/DL (0.1-1.0); CALCIUM 9.5 MG/DL (8.5-10.1); CREATININE SERUM 1.45 MG/DL (0.60-1.30); POTASSIUM 3.9 MMOL/L (3.6-5.0); TOTAL PROTEIN 8.3 GM/DL (6.4-8.2)
[2019-11-21] MEDS ORDERED: PHENYLEPHRINE 100 MCG/ML 10 ML (ANESTHESIA) SYR ONE (09:12)
[2019-11-21] MEDS ORDERED: PHENYLEPHRINE INJ 10 MG/ML (FOR DRIP KITS ONLY) ONE ×3 (09:46→13:04)
[2019-11-21] MEDS ORDERED: NS (IVPB) 250 ML ONE ×2 (09:46→11:27)
[2019-11-21] MEDS ORDERED: SEVOFLURANE (ULTANE) 15 ML INHAL SOLN ONE ×2 (10:47→14:56)
[2019-11-21] MEDS ORDERED: HEParin DRIP 25000 UNIT/500ML 500 ML IV ONE (11:08)
[2019-11-21] MEDS ORDERED: NS (IVPB) 100 ML ONE (13:04)
[2019-11-21] MEDS ORDERED: NEOSTIGMINE 3 MG/3 ML VIAL ONE (13:46)
[2019-11-21] MEDS ORDERED: GLYCOPYRROLATE 0.2 MG/ML (ROBINUL) 2 ML VIAL ONE (13:46)
[2019-11-21] MEDS ORDERED: DEXAMETHASONE 10 MG/ML (DECADRON) 1 ML VIAL ONE ×2 (14:52)
[2019-11-21] MEDS ORDERED: PROTAMINE 50 MG/5 ML VIAL ONE (14:52)
--- NOTE | 2019-11-21 15:04 | Electrophysiology Procedure ---
EP Procedure Persistent atrial fibrillation ablation operative report. DATE OF SERVICE:11/21/19 REFERRING PHYSICIAN: CARDIAC DRESS DRAPER: Mckenna Zhou MD, [facility], [facility]. INDICATION: Persistent atrial fibrillation. PREOPERATIVE DIAGNOSIS: Persistent atrial fibrillation. POSTOPERATIVE DIAGNOSES: Persistent atrial fibrillation ablation. HISTORY: This is a 64-year-old gentleman with morbid obesity, sleep apnea who has persistent atrial fibrillation. The patient is planned for comprehensive EP study and ablation. PROCEDURE PERFORMED: 1. Comprehensive EP study with induction. 2. Fluoroscopy. 3. Left atrial pacing and recording. 4. Left ventricular pacing and recording. 5. Pulmonary vein isolation 6. Additional atrial fibrillation ablation; CFAE ablation 7. Additional atrial fibrillation ablation; roofline and posterior box isolation 8. Ablation of SVT, mitral isthmus dependent flutter 9. Comprehensive 3D mapping with the carto system. 10. Intracardiac echocardiogram. 11. Direct external cardioversion. COMPLICATION: None. ESTIMATED BLOOD LOSS: 10 mL. CONTRAST USED: None. FLUOROSCOPY TIME: 7.7 minutes. FLUOROSCOPY DOSE: 508 mgy. SPECIMENS: None. ANESTHESIA: Done by our anesthesia colleagues. ANTICOAGULATION: Uninterrupted Eliquis and IV heparin. PROCEDURE IN DETAIL: Transesophageal echocardiogram was done before the procedure which did not demonstrate any left atrial or left atrial appendage thrombus After informed consent was taken, the patient was brought to the EP lab. Anesthesia was provided by our anesthesia colleagues. The patient was draped and prepped in the usual sterile fashion. The patient presented to the EP lab in atrial fibrillation rhythm.3D mapping was done with Carto system. Left atrial pacing and recording was also done. Access was gained in the right femoral vein with one 8 [place] sheath in one 7 [place] sheath. Left access in left femoral vein was gained with a 10 [place] sheath and one 6 [place] sheath. A CS catheter was advanced through the right sided 7 [place] sheath. Intracardiac ultrasound catheter was advanced through the 10 [place] sheath. A his catheter was advanced through the 6 [place] sheath. Intracardiac echocardiogram was performed with an ICE catheter. Numerous images were taken of the RV, RA, left atrium and LV. There was no pericardial effusion. There was no thrombus in the left atrium or left atrial appendage. All 4 pulmonary veins were identified. A carto-sound map was created with the ice catheter. We then advanced a guidewire into the superior vena cava. A long sheath was advanced with the transseptal needle. Under fluoroscopic and echocardiogram guidance, transseptal puncture was done once through the fossa ovalis. Left atrial pressure was documented. IV heparin bolus was given followed by heparin infusion. ACT target over 350 seconds. Patient was on uninterrupted oral anticoagulation therapy. The transseptal needle was taken out and a PENTARAY mapping catheter was utilized to perform voltage mapping of the left atrium. We also performed activation and propagation mapping. We also performed mapping for complex fractionated atrial electrograms, these were tagged. These atrial electrograms were found in the roof area, posterior wall as well as left superior pulmonary veins. Therefore we started with CFAE ablations. No significant change in atrial fibrillation was noted. No clear drivers were identified. We then proceeded with pulmonary vein isolation. Pulmonary vein isolation was performed for the left pulmonary veins. Entrance block was confirmed. We then proceeded to the right pulmonary vein. And does block was confirmed. The patient continued to be in atrial fibrillation therefore we proceeded with the roofline. As well as posterior box isolation. Patient was now much more organized atrial fibrillation /Atrial flutter. Therefore our working diagnosis was left atrial flutter, mitral isthmus dependent. Therefore we performed a mitral isthmus ablation line, during which the patient converted to sinus rhythm. All 4 veins were checked with high output pacing which demonstrated exit block. High output pacing was also done in the posterior wall which demonstrated posterior wall isolation. EP study was done. Left atrial pacing and recording did not demonstrate a left-sided bypass tract. Left ventricular pacing and recording did not demonstrate any retrograde conduction. Rapid atrial pacing at 300 ms cycle length but the patient into organized atrial ablation/flutter. Right atrial mapping was done however the focus was unlikely right atrium. We were already right-sided with all the catheters. We therefore performed direct external cardioversion which converted the patient to sinus rhythm. Final intracardiac echocardiogram images demonstrated no pericardial effusion. All the sheaths were taken out. 20 mg of IV protamine was given. Decadron 8 mg IV 1 was given. Figure of 8 sutures were done in both venous access and manual compression done for 5 minutes. Hemostasis was achieved. Patient tolerated the procedure well and did not have any complications. The patient left the EP lab in sinus rhythm. Total ablation time was MEASUREMENTS/EP STUDY: A interval 364 ms, QT interval 284 ms, QRS duration 59 ms, R-R interval 1085 ms, Left ventricular pacing and recording did not demonstrate any retrograde conduction. AV esha ERP 800/470 ms. AV Wenckebach at 650ms cycle length. PLAN: The patient will be observed overnight and will be discharged home tomorrow with precise followup instructions. Mckenna Zhou MD, [facility] Cardiac Electrophysiology Jacy ZHOU MD November 21, 2019 15:04
--- NOTE | 2019-11-21 15:06 | History & Physicial-Cardiolgy ---
HPI-Cardiology Cardiology Consultation: Date of Consultation 11/21/19 Date of Admission Attending Physician Jacy Zhou MD Admitting Physician Kayleigh Fox DO Consulting Physician Jacy ZHOU MD HPI: Time Seen by a Provider: 08:45 Chief Complaint: Persistent atrial fibrillation with palpitations. This is a 64-year-old gentleman with persistent atrial fibrillation. Morbid obesity, obstructive sleep apnea. Review of Systems-Cardiology Review of Systems Constitutional: As described under HPI; No As described under HPI, No no symptoms reported, No chills, No fever, No lightheadedness Eyes: No As described under HPI, No no symptoms reported, No blindness, No blurred vision, No contact lenses, No drainage, No decreased acuity, No foreign body sensation, No pain, No vision change Ears/Nose/Throat: No As described under HPI, No no symptoms reported, No chronic hearing loss, No ear discharge, No ear pain, No nasal drainage, No ulcerations Respiratory: No no symptoms reported; As described under HPI; No As described under HPI, No cough, No orthopnea, No shortness of breath, No SOB with excertion Cardiovascular: No no symptoms reported; As described under HPI; No As described under HPI, No chest pain, No edema, No irregular heart rate, No lightheadedness; palpitations Gastrointestinal: No no symptoms reported, No As described under HPI, No abdomen distended, No abdominal pain, No blood streaked bowels, No constipation, No diarrhea, No nausea, No vomiting, No stool coloration changes Genitourinary: No As described under HPI, No burning, No dysuria, No discharge, No frequency, No flank pain, No hematuria, No urgency Skin: No rash, No skin related problems, No ulcerations Psychiatric/Neurological: No anxiety, No depression, No seizure, No focal weakness, No syncope Hematologic: No bleeding abnormalities BIN-Jnbsvj-Nmpmay Hx Patient Social History Alcohol Use: Denies Use Recreational Drug Use: No Smoking Status: Never a Smoker Type Used: Cigarettes Recent Foreign Travel: No Immunizations Up To Date Tetanus Booster (TDap): More than 5yrs Date of Pneumonia Vaccine: Jul 30, 2015 Date of Influenza Vaccine: Mar 28, 2016 Past Medical History PMH As described under Assessment. Allergies and Home Medications Allergies Coded Allergies: NKANo Known Allergies (Verified Allergy, Unknown, 03/15/07) Home Medications Amlodipine/Benazepril 1 Cap Cap, 1 CAP PO DAILY, (Reported) Apixaban 5 Mg Tablet, 5 MG PO BID, (Reported) Cyanocobalamin (Vitamin B-12) 1,000 Mcg Tablet, 1,000 MCG PO DAILY, (Reported) Diltiazem HCl 180 Mg Cap.er.24h, 240 MG PO DAILY Prescribed by: Jacy ZHOU on 08/01/19 1319 Ergocalciferol (Vitamin D2) 1,250 Mcg Capsule, 1,250 MCG PO Mo, (Reported) Fenofibrate Nanocrystallized 145 Mg Tablet, 145 MG PO DAILY, (Reported) Fexofenadine HCl 60 Mg Tablet, 60 MG PO DAILY, (Reported) Furosemide 40 Mg Tablet, 80 MG PO DAILY, (Reported) Furosemide 40 Mg Tablet, 40 MG PO EVENING, (Reported) Glimepiride 2 Mg Tablet, 2 MG PO BID, (Reported) Insulin Aspart 300 Units/3 Ml Solution, 20 UNITS SC TIDAC, (Reported) Insulin Glargine,Hum.rec.anlog 100 Unit/1 Ml Insuln.pen, 30 UNITS SC HS, (Reported) Krill Oil 500 Mg Capsule, 500 MG PO DAILY, (Reported) Metformin HCl 1,000 Mg Tablet, 1,000 MG PO BID WITH MEALS, (Reported) Metoprolol Succinate 50 Mg Tab.er.24h, 50 MG PO BID Prescribed by: Jacy ZHOU on 08/01/19 1319 Multivitamin 1 Each Tab.chew, 1 TAB.CHEW PO DAILY, (Reported) Potassium Chloride 10 Meq Tablet.er, 10 MEQ PO DAILY PRN for CRAMPS, (Reported) HAS NOT TAKEN, HAS ONLY IF NEEDED Simvastatin 20 Mg Tablet, 20 MG PO DAILY, (Reported) Ubidecarenone/Vit E Acetate 1 Each Capsule, 100 MG PO DAILY, (Reported) Patient Home Medication List Home Medication List Reviewed: Yes Physical Exam-Cardiology Physical Exam Vital Signs/I&O 11/21/19 07:41 Temp 36.0 Pulse 93 Resp 16 B/P (MAP) 150/104 (119) Pulse Ox 96 O2 Delivery Room Air Capillary Refill : Constitutional: appears stated age, AAO x 3; No apparent distress; well- developed, well-nourished HEENT: PERRL; No discharge; hearing is well preserved, oral hygience is good; No ulceration, No xanthelasmas are seen Neck: No carotid bruit; carotid pulses are 2 + bilaterally Respiratory: chest is bilaterally symmetric, lungs clear to auscultation Cardiovascular: irregularly irregular, S1 and S2 Gastrointestinal: soft, audible bowel sounds; No spleenomegaly Rectal: deferred Extremities: normal range of motion, non-tender, normal inspection; No clubbing, No cyanosis, No significant edema Neurologic/Psychiatric: no motor/sensory deficits, alert, normal mood/affect, oriented x 3, power is 5/5 both on sides Skin: normal color; No rash, No ulcerations Data Review Labs Laboratory Tests 11/21/19 07:50: White Blood Count 9.3, Red Blood Count 5.17, Hemoglobin 14.7, Hematocrit 43, Mean Corpuscular Volume 84, Mean Corpuscular Hemoglobin 28, Mean Corpuscular Hemoglobin Concent 34, Red Cell Distribution Width 14.9H, Platelet Count 256, Mean Platelet Volume 10.5H, Prothrombin Time 14.7, INR Comment 1.1, Activated Partial Thromboplast Time 29, Sodium Level 141, Potassium Level 3.9, Chloride Level 101, Carbon Dioxide Level 25, Anion Gap 15H, Blood Urea Nitrogen 28H, Creatinine 1.45H, Estimat Glomerular Filtration Rate 49, BUN/Creatinine Ratio 19, Glucose Level 171H, Calcium Level 9.5, Corrected Calcium 9.4, Total Bilirubin 0.4, Aspartate Amino Transf (AST/SGOT) 28, Alanine Aminotransferase (ALT/SGPT) 35, Alkaline Phosphatase 42, Total Protein 8.3H, Albumin 4.1 ECG Impression ECG Initial ECG Impression: Atrial Fibrillation w/RVR A/P-Cardiology Assessment/Admission Diagnosis Persistent atrial fibrillation Admission Status: Observation Plan Persistent atrial fibrillation ablation is recommended. Jacy ZHOU MD November 21, 2019 15:06
[2019-11-21] MEDS ORDERED: PATIENT MAY USE OWN MEDS, ALL PO SCH (15:15)
[2019-11-21] MEDS ORDERED: FUROSEMIDE 40 MG (LASIX) TAB PO SCH (18:00)
[2019-11-21] MEDS ORDERED: KCL 10 MEQ TAB (MICRO K) PO PRN (18:00)
[2019-11-21] MEDS: NS IV 1000 ML 1,000 ML IV SCH (19:00)
[2019-11-21] MEDS ORDERED: NON-FORMULARY MEDICATION 1 EA EA (Insulin Glargine,Hum.rec.anlog (Lantus Solostar) 30 UNIT SC SCH (21:00)
[2019-11-21] MEDS ORDERED: APIXABAN 5 MG (ELIQUIS) TABLET PO SCH (21:00)
[2019-11-21] MEDS: meTOproloL SUCCINATE 50 MG (TOPROL XL) TAB PO SCH (22:19)
[2019-11-21] MEDS: GLIMEPIRIDE 2 MG (AMARYL) TAB PO SCH (22:19)
[2019-11-21] MEDS: APIXABAN 5 MG (ELIQUIS) TABLET PO SCH (22:19)
[2019-11-21] MEDS: ACETAMINOPHEN 500 MG TAB (TYLENOL) PO PRN (22:20)
--- NOTE | 2019-11-21 22:25 | NUR ---
FOUND PT OFF BIPAP , HRT 86, RR 20, SPO2 92 ON 4 LITERS O2 Addendum: 11/21/19 at 2227 by SULEMAN MILES RT Amended: Links added.
[2019-11-22] VITALS (16 sets, daily range): BP systolic 125–152; BP diastolic 70–84
[2019-11-22] MEDS: NS IV 1000 ML 1,000 ML IV SCH ×4 (01:06→22:09)
[2019-11-22 04:01] LABS: HEMOGLOBIN 12.3 G/DL (13.3-17.7); WHITE BLOOD COUNT 16.2 10^3/uL (4.3-11.0)
[2019-11-22 04:21] LABS: CALCIUM 7.7 MG/DL (8.5-10.1); POTASSIUM 5.4 MMOL/L (3.6-5.0)
[2019-11-22 04:49] LABS: CREATININE SERUM 2.45 MG/DL (0.60-1.30)
[2019-11-22] MEDS: GLIMEPIRIDE 2 MG (AMARYL) TAB PO SCH (06:02)
[2019-11-22] MEDS: ACETAMINOPHEN 500 MG TAB (TYLENOL) PO PRN ×3 (06:02→22:10)
[2019-11-22] MEDS: inSUlin ASPART (NovoLOG) 1 UNIT/0.01 ML (CHARGE PER UNIT) SC SCH ×5 (06:03→21:06)
[2019-11-22] MEDS: MULTIVIT W/MINERALS TAB (THERAGRAN M) PO SCH (06:07)
[2019-11-22] MEDS ORDERED: NON-FORMULARY MEDICATION 1 EA EA (Insulin Aspart (Novolog Flexpen) 20 UNITS) SC SCH (07:00)
[2019-11-22] MEDS ORDERED: metFORMIN 500 MG (GLUCOPHAGE) TAB PO SCH (07:00)
[2019-11-22] MEDS ORDERED: NON-FORMULARY MEDICATION 1 EA EA (Metformin HCl 1,000 MG) PO SCH (07:00)
[2019-11-22] MEDS ORDERED: FUROSEMIDE 40 MG (LASIX) TAB PO SCH (07:00)
[2019-11-22] MEDS: LORATADINE (CLARITIN) 10 MG TAB PO SCH (08:32)
[2019-11-22] MEDS: APIXABAN 5 MG (ELIQUIS) TABLET PO SCH ×2 (08:32→21:01)
[2019-11-22] MEDS: meTOproloL SUCCINATE 50 MG (TOPROL XL) TAB PO SCH ×2 (08:33→21:01)
[2019-11-22] MEDS: CYANOCOBALAMIN 1,000 MCG (VITAMIN B-12) TABLET PO SCH (08:33)
[2019-11-22] MEDS ORDERED: [UNRECOGNIZED DRUG - OTHER] PO SCH (09:00)
[2019-11-22] MEDS ORDERED: SIMvastatin 20 MG (ZOCOR) TAB PO SCH (09:00)
[2019-11-22] MEDS ORDERED: BENAZEPRIL PO SCH (09:00)
[2019-11-22] MEDS ORDERED: AMLODIPINE PO SCH (09:00)
[2019-11-22] MEDS ORDERED: MULTIVITAMIN PO SCH (09:00)
[2019-11-22] MEDS ORDERED: NON-FORMULARY MEDICATION 1 EA EA (Krill Oil 500 MG) PO SCH (09:00)
[2019-11-22] MEDS ORDERED: NON-FORMULARY MEDICATION 1 EA EA (Fenofibrate Nanocrystallized (Fenofibrate) 145 MG) PO SCH (09:00)
[2019-11-22] MEDS ORDERED: FENOFIBRATE 134 MG (LOFIBRA) CAPSULE PO SCH (09:00)
[2019-11-22] MEDS ORDERED: [UNRECOGNIZED DRUG - REMARK] PO SCH (09:00)
--- NOTE | 2019-11-22 09:30 | Anesthesia-General Post-Op ---
General Patient Condition Mental Status/LOC: Same as Preop Cardiovascular: Satisfactory Nausea/Vomiting: Absent Respiratory: Satisfactory Pain: Controlled Complications: Absent Post Op Complications Complications None Follow Up Care/Instructions Patient Instructions None needed. Anesthesia/Patient Condition Patient Condition Patient is doing well, no complaints, stable vital signs, no apparent adverse anesthesia problems. No complications reported per nursing. MARCIO LIN CRNA November 22, 2019 09:29
[2019-11-22] MEDS ORDERED: AMIODARONE 200 MG (CORDARONE) TAB PO SCH (09:45)
--- NOTE | 2019-11-22 10:08 | NUR ---
DR DUNCAN CALLED NEW ORDERS RECEIVED TO START AMIODARONE 200MG PO NOW AND BID. RX CALLED X 1 MONTH TO [facility] PER PT'S REQUEST. THIS RN SPOKE TO ROSALINDA JORGE.
[2019-11-22] MEDS ORDERED: inSUlin ASPART (NovoLOG) 1 UNIT/0.01 ML (CHARGE PER UNIT) SC SCH (12:00)
--- NOTE | 2019-11-22 12:43 | Progress Note - Cardiology ---
Cardiology SOAP Progress Note Subjective: Does not report cp or palp or syncope or shortness of breath at rest No n/v/d No focal weakness No groin discomfort Chronic mild to mod leg swelling Objective: I&O/Vital Signs 11/22/19 11/22/19 11/22/19 11/22/19 01:00 01:00 02:00 02:26 Pulse 81 81 84 81 Resp 15 20 9 B/P (MAP) 130/74 (92) 136/74 (94) Pulse Ox 95 97 98 O2 Delivery Nasal Cannula Nasal Cannula O2 Flow Rate 4.00 4.00 11/22/19 11/22/19 11/22/19 11/22/19 03:00 04:00 05:00 06:00 Pulse 81 82 82 86 Resp 17 16 18 22 B/P (MAP) 141/77 (98) 137/75 (95) 143/83 (103) 151/80 (103) Pulse Ox 96 94 97 94 O2 Delivery Nasal Cannula Nasal Cannula Nasal Cannula Nasal Cannula O2 Flow Rate 4.00 4.00 4.00 4.00 11/22/19 11/22/19 11/22/19 11/22/19 06:39 07:00 08:00 08:15 Pulse 79 78 80 Resp 13 20 B/P (MAP) 138/84 (102) 134/84 (101) Pulse Ox 99 98 98 O2 Delivery Nasal Cannula Nasal Cannula Room Air O2 Flow Rate 4.00 4.00 11/22/19 11/22/19 11/22/19 11/22/19 09:00 09:39 10:00 12:00 Pulse 82 80 83 Resp 15 19 17 B/P (MAP) 133/74 (93) 127/70 (89) 140/80 (100) Pulse Ox 95 94 94 O2 Delivery Nasal Cannula Room Air Room Air Room Air O2 Flow Rate 4.00 11/22/19 00:00 Output Total 50 ml Balance -50 ml Weight (Pounds): 361 Weight (Ounces): 0.0 Weight (Calculated Kilograms): [phone] Constitutional: appears stated age, AAO x 3; No apparent distress; well- developed, well-nourished Respiratory: chest is bilaterally symmetric, lungs clear to auscultation Cardiovascular: regular rate-rhythm, S1 and S2, systolic murmur (faint KATIA at card base) Gastrointestional: soft, audible bowel sounds; No spleenomegaly Extremities: normal range of motion, non-tender, normal inspection; No clubbing, No cyanosis, No significant edema Neurologic/Psychiatric: no motor/sensory deficits, alert, normal mood/affect, oriented x 3, power is 5/5 both on sides Skin: normal color, warm/dry; No cyanosis, No rash, No ulcerations Results/Procedures: Labs Laboratory Tests 11/21/19 15:44: Glucometer 325H 11/21/19 22:17: Glucometer 394H 11/22/19 03:51: White Blood Count 16.2H, Red Blood Count 4.42, Hemoglobin 12.3L, Hematocrit 38L, Mean Corpuscular Volume 87, Mean Corpuscular Hemoglobin 28, Mean Corpuscular Hemoglobin Concent 32, Red Cell Distribution Width 15.0H, Platelet Count 207, Mean Platelet Volume 11.0H, Sodium Level 135, Potassium Level 5.4H, Chloride Level 103, Carbon Dioxide Level 16L, Anion Gap 16H, Blood Urea Nitrogen 41H, Creatinine 2.45H, Estimat Glomerular Filtration Rate 27, BUN/Creatinine Ratio 17, Glucose Level 386H, Calcium Level 7.7L 11/22/19 12:06: Glucometer 290H Microbiology 11/21/19 MRSA Screen - Final, Complete MRSA not isolated Laboratory Tests 11/21/19 07:50 11/22/19 03:51 A/P: Assessment: WOODROW - 3 of undetermined etiology, suspect volume depletion. Prior to 11/21/19, Cr and eGFR appear to have been normal Metabolic acidosis and mild hyperkalemia due to ac renal failure S/p successful ablation of persistent atrial fibrillation on 11/21/[address] Zhou H/o typical atrial flutter ablation on 05/13/2018 Obesity with obesity-hypoventilation syndrome and ORA treated with CPAP DM II, insulin requiring Hypertension: treated with amlodipine/benazepril combo H/o sinus node dysfunction and asymptomatic pauses that have treated with reduction of oral diltiazem by Dr Zhou Plan: * Keep in hospital on tele * iv fluids * D/c diuretics. D/c benazepril * Bicarb * Consult Dr Fox for management of diabetes and ac renal failure * Monitor labs SHAGUFTA MATA MD FACP FAC CCDS November 22, 2019 12:43
--- NOTE | 2019-11-22 13:40 | Consultation - Hospitalist ---
HPI History of Present Illness: HPI/Chief Complaint Pt is 64yoCM with a PMH of afib, IDDMII, HLD, HTN who was admitted due to atrial fibrillation for ablation. He is admitted to the cardiology service. He underwent ablation on 11/20. He was noted to have a mild WOODROW on admission with creatinine at 1.4 when he is normally near 1. Today his creatinine is up further to 2.45. He denies any complaints. He states he has had poor PO intake but has tried to keep up with fluids. He does report good urine output though. Source: patient Date Seen 11/22/19 Attending Physician Jacy Zhou MD PCP Kayleigh Fox DO Referring Physician Date of Admission Home Medications & Allergies Home Medications Reviewed patient Home Medication Reconciliation performed by pharmacy medication reconciliations screening technician and/or nursing. Patients Allergies have been reviewed. Allergies Allergies Coded Allergies NKANo Known Allergies (Verified Allergy, Unknown, 03/15/07) Past Rvsyasd-Pqgtou-Jhnjbc Hx Past Med/Social Hx: Reviewed Nursing Past Med/Soc Hx Patient Social History Alcohol Use: Denies Use Recreational Drug Use: No Smoking Status: Never a Smoker Type Used: Cigarettes Recent Foreign Travel: No Contact w/other who traveled: No Recent Hopitalizations: No Immunizations Up To Date Tetanus Booster (TDap): More than 5yrs Pediatric: No Date of Pneumonia Vaccine: Jul 30, 2015 Date of Influenza Vaccine: Mar 28, 2016 Seasonal Allergies Seasonal Allergies: Yes Past Medical History Respiratory: Sleep Apnea Cardiac: Atrial Fibrillation, Chronic Edema/Swelling, High Cholesterol, Hypertension Neurological: Concussion Musculoskeletal: Chronic Back Pain Endocrine: Diabetes, Insulin dep Loss of Vision: Denies Hearing Impairment: Denies History of Blood Disorders: No Adverse Reaction to Blood Hogan: No Family History Reviewed Nursing Family Hx Hypertension Review of Systems Constitutional: No chills, No fever EENTM: no symptoms reported Respiratory: No cough, No short of breath Cardiovascular: No chest pain; Hx of Intervention, palpitations Gastrointestinal: No abdominal pain, No constipation, No diarrhea, No nausea, No vomiting Genitourinary: No decreased output, No dysuria, No frequency Musculoskeletal: no symptoms reported Skin: no symptoms reported Psychiatric/Neurological: No Symptoms Reported Physical Exam Physical Exam Vital Signs Vital Signs - First Documented 11/21/19 07:41 Temp 36.0 Pulse 93 Resp 16 B/P (MAP) 150/104 (119) Pulse Ox 96 O2 Delivery Room Air Capillary Refill : Less Than 3 Seconds Height, Weight, BMI Height: 6'1.00" Weight: 361lbs. 0.0oz. 163.833367by; 48.79 BMI Method: General Appearance: No Apparent Distress, WD/WN, Obese Respiratory: Lungs Clear, No Accessory Muscle Use, No Respiratory Distress Cardiovascular: Regular Rate, Rhythm, No Murmur Gastrointestinal: Normal Bowel Sounds, Non Tender, Soft Neurologic/Psychiatric: Alert, Oriented x3, Normal Mood/Affect Skin: Warm/Dry, Erythema Results Results/Procedures Labs Laboratory Tests 11/22/19 03:51 11/22/19 14:15 11/23/19 03:14 Patient resulted labs reviewed. Assessment/Plan Assessment and Plan Assess & Plan/Chief Complaint WOODROW Creatinine up today Likely hypovolemia Given still urinating adequately with presumed hypovolemia ?DKA BS 396 this AM with gap of 16 and CO2 of 16 Will repeat BMP now check UA and beta hydroxybutyrate IDDMII On insulin at home, fasting BS was 396 Low threshold for insulin gtt pending BMP A-fib HTN HLD Management per primary s/p ablation Eliquis for stroke ppx Diagnosis/Problems Diagnosis/Problems (1) Atrial fibrillation Qualifiers: Atrial fibrillation type: longstanding persistent Qualified Codes: I48.11 - Longstanding persistent atrial fibrillation (2) ORA on CPAP Status: Chronic (3) Diabetes mellitus Status: Chronic Qualifiers: Diabetes mellitus type: type 2 Diabetes mellitus half-way insulin use: with half-way use Diabetes mellitus complication status: with hyperglycemia Qualified Codes: E11.65 - Type 2 diabetes mellitus with hyperglycemia; Z79.4 - vermin exterminator (current) use of insulin (4) Hypertension Status: Chronic (5) Obesity Status: Chronic Qualifiers: Obesity type: unspecified obesity type Serious obesity comorbidity presence: with serious comorbidity Body mass index: BMI 45.0-49.9 (6) WOODROW (acute kidney injury) WINSTON MAYERS MD November 22, 2019 13:40
[2019-11-22 13:56] LABS: BILIRUBIN,URINE NEGATIVE (NEGATIVE); CLARITY,URINE CLEAR; COLOR,URINE YELLOW; GLUCOSE, URINE (UA) TRACE (NEGATIVE); KETONES,URINE NEGATIVE (NEGATIVE); LEUKOCYTE ESTERASE ,URINE NEGATIVE (NEGATIVE); NITRITE,URINE NEGATIVE (NEGATIVE); PROTEIN,URINE NEGATIVE (NEGATIVE)
[2019-11-22] MEDS ORDERED: SODIUM BICARBONATE 8.4% VIAL 75 MEQ in 1/2 NS IV SOLUTION 1,000 ML IV SCH (14:00)
[2019-11-22 14:02] LABS: BACTERIA,URINE NEGATIVE /HPF
[2019-11-22] MEDS ORDERED: PATIENT MAY USE OWN MEDS, ALL MC SCH (14:30)
[2019-11-22 14:42] LABS: CALCIUM 8.1 MG/DL (8.5-10.1); CREATININE SERUM 2.05 MG/DL (0.60-1.30); POTASSIUM 4.2 MMOL/L (3.6-5.0)
[2019-11-22] MEDS ORDERED: KCL 10 MEQ TAB (MICRO K) PO PRN (14:45)
[2019-11-22] MEDS: ULTRA COQ10 100 MG PO SCH (15:55)
[2019-11-22] MEDS: AMIODARONE 200 MG (CORDARONE) TAB PO SCH (21:01)
[2019-11-23] VITALS (9 sets, daily range): BP systolic 116–143; BP diastolic 70–88
[2019-11-23] MEDS ORDERED: dilTIAZem DRIP PRE-MIX 125 ML IV SCH (03:30)
[2019-11-23 03:31] LABS: BASOPHILS % (AUTO) 0 % (0-10); EOSINOPHILS % (AUTO) 0 % (0-10); HEMATOCRIT 33 % (40-54); HEMOGLOBIN 10.9 G/DL (13.3-17.7); LYMPHOCYTES # (AUTO) 0.7 X 10^3 (1.0-4.0); LYMPHOCYTES % (AUTO) 7 % (12-44); MEAN CORPUSCULAR HEMOGLOBIN 28 PG (25-34); MEAN CORPUSCULAR HGB CONC 33 G/DL (32-36); MEAN CORPUSCULAR VOLUME 86 FL (80-99); MEAN PLATELET VOLUME 10.5 FL (7.4-10.4); MONOCYTES # (AUTO) 0.8 X 10^3 (0.0-1.0); MONOCYTES % (AUTO) 7 % (0-12); NEUTROPHILS # (AUTO) 8.6 X 10^3 (1.8-7.8); NEUTROPHILS % (AUTO) 85 % (42-75); PLATELET COUNT 153 10^3/uL (130-400); RED CELL DISTRIBUTION WIDTH 14.9 % (10.0-14.5); WHITE BLOOD COUNT 10.1 10^3/uL (4.3-11.0)
[2019-11-23 03:45] LABS: ALBUMIN 3.5 GM/DL (3.2-4.5); POTASSIUM 4.3 MMOL/L (3.6-5.0)
[2019-11-23 03:46] LABS: CALCIUM 8.2 MG/DL (8.5-10.1)
[2019-11-23 03:48] LABS: TOTAL PROTEIN 6.9 GM/DL (6.4-8.2)
[2019-11-23 03:50] LABS: BILIRUBIN,TOTAL 0.5 MG/DL (0.1-1.0)
[2019-11-23 03:51] LABS: CREATININE SERUM 1.29 MG/DL (0.60-1.30)
--- NOTE | 2019-11-23 05:41 | NUR ---
THIS PT REVERTED BACK TO AFIB @ APPROX 0250. DR. MATA NOTIFIED AND NEW ORDERS OBTAINED.
[2019-11-23] MEDS: inSUlin ASPART (NovoLOG) 1 UNIT/0.01 ML (CHARGE PER UNIT) SC SCH ×7 (05:47→21:31)
[2019-11-23] MEDS: NS IV 1000 ML 1,000 ML IV SCH (06:29)
[2019-11-23] MEDS: MULTIVIT W/MINERALS TAB (THERAGRAN M) PO SCH (06:33)
[2019-11-23] MEDS: ACETAMINOPHEN 500 MG TAB (TYLENOL) PO PRN ×2 (06:58→16:03)
[2019-11-23] MEDS: ULTRA COQ10 100 MG PO SCH (08:09)
[2019-11-23] MEDS: LORATADINE (CLARITIN) 10 MG TAB PO SCH (08:09)
[2019-11-23] MEDS: FENOFIBRATE 145 MG TABLET PO SCH (08:10)
[2019-11-23] MEDS: meTOproloL SUCCINATE 50 MG (TOPROL XL) TAB PO SCH ×2 (08:11→21:31)
[2019-11-23] MEDS: APIXABAN 5 MG (ELIQUIS) TABLET PO SCH ×2 (08:12→21:30)
[2019-11-23] MEDS: AMIODARONE 200 MG (CORDARONE) TAB PO SCH ×2 (08:13→21:32)
[2019-11-23] MEDS: CYANOCOBALAMIN 1,000 MCG (VITAMIN B-12) TABLET PO SCH (08:15)
--- NOTE | 2019-11-23 10:30 | Progress Note - Hospitalist ---
Subjective HPI/CC On Admission Date Seen by Provider: November 23, 2019 Time Seen by Provider: 10:28 Pt is 64yoCM with a PMH of afib, IDDMII, HLD, HTN who was admitted due to atrial fibrillation for ablation. He is admitted to the cardiology service. He underwent ablation on 11/20. He was noted to have a mild WOODROW on admission with creatinine at 1.4 when he is normally near 1. Today his creatinine is up further to 2.45. He denies any complaints. He states he has had poor PO intake but has tried to keep up with fluids. He does report good urine output though. Subjective/Events-last exam Reports feeling better but heart rate still erratic. No other complaints. Objective Exam Vital Signs Vital Signs Date Time Temp Pulse Resp B/P (MAP) Pulse Ox O2 Delivery O2 Flow Rate FiO2 11/23/19 09:33 11/23/19 08:15 Room Air 11/23/19 08:00 36.4 96 11/23/19 06:52 148 11/23/19 06:00 22 11/22/19 13:58 28.00 Capillary Refill : Less Than 3 Seconds General Appearance: No Apparent Distress, Obese Respiratory: Lungs Clear, No Respiratory Distress Cardiovascular: No Murmur, Irregularly Irregular Gastrointestinal: Normal Bowel Sounds, Soft Neurologic/Psychiatric: Alert, Oriented x3, No Motor/Sensory Deficits Results/Procedures Lab Laboratory Tests 11/22/19 14:15 11/23/19 03:14 Patient resulted labs reviewed. Assessment/Plan Assessment and Plan Assess & Plan/Chief Complaint WOODROW- resolved Creatinine back to normal with volume repletion Will DC IVF Check BMP in AM IDDMII Continue home insulin BS much improved A-fib- back in a-fib HTN HLD Management per primary s/p ablation Eliquis for stroke ppx WINSTON MAYERS MD November 23, 2019 10:30
[2019-11-23] MEDS ORDERED: dilTIAZem120 MG (CARDIZEM CD) CAP PO NR (12:45)
--- NOTE | 2019-11-23 16:14 | Progress Note - Cardiology ---
Cardiology SOAP Progress Note Subjective: Palpitations last night No cp or syncope or shortness of breath Gen malaise No focal weakness Chronic leg swelling Objective: I&O/Vital Signs 11/23/19 11/23/19 11/23/19 11/23/19 05:00 06:00 06:52 08:00 Temp 36.4 Pulse 77 144 148 Resp 17 22 B/P (MAP) 129/79 (96) 125/88 (100) Pulse Ox 96 O2 Delivery Room Air Room Air Room Air 11/23/19 11/23/19 11/23/19 11/23/19 08:15 09:33 10:00 12:35 Pulse 105 105 Resp 20 20 B/P (MAP) 130/79 (96) 130/79 (96) O2 Delivery Room Air Room Air Room Air 11/23/19 12:39 Pulse 81 11/23/19 00:00 Intake Total 5500 ml Output Total 5800 ml Balance -300 ml Weight (Pounds): 361 Weight (Ounces): 0.0 Weight (Calculated Kilograms): 163.322872 Constitutional: appears stated age, AAO x 3; No apparent distress; well- developed, well-nourished Respiratory: chest is bilaterally symmetric, lungs clear to auscultation Cardiovascular: regular rate-rhythm, S1 and S2, systolic murmur (faint KATIA at card base) Gastrointestional: soft, audible bowel sounds; No spleenomegaly Extremities: normal range of motion, non-tender, normal inspection; No clubbing, No cyanosis, No significant edema Neurologic/Psychiatric: no motor/sensory deficits, alert, normal mood/affect, oriented x 3, power is 5/5 both on sides Skin: normal color, warm/dry; No cyanosis, No rash, No ulcerations Results/Procedures: Labs Laboratory Tests 11/22/19 20:15: Glucometer 263H 11/23/19 03:14: White Blood Count 10.1, Red Blood Count 3.87L, Hemoglobin 10.9L, Hematocrit 33L, Mean Corpuscular Volume 86, Mean Corpuscular Hemoglobin 28, Mean Corpuscular Hemoglobin Concent 33, Red Cell Distribution Width 14.9H, Platelet Count 153, Mean Platelet Volume 10.5H, Neutrophils (%) (Auto) 85H, Lymphocytes (%) (Auto) 7L, Monocytes (%) (Auto) 7, Eosinophils (%) (Auto) 0, Basophils (%) (Auto) 0, Neutrophils # (Auto) 8.6H, Lymphocytes # (Auto) 0.7L, Monocytes # (Auto) 0.8, Eosinophils # (Auto) 0.0, Basophils # (Auto) 0.0, Sodium Level 138, Potassium Level 4.3, Chloride Level 103, Carbon Dioxide Level 24, Anion Gap 11, Blood Urea Nitrogen 29H, Creatinine 1.29, Estimat Glomerular Filtration Rate 56, BUN/Creatinine Ratio 22, Glucose Level 141H, Calcium Level 8.2L, Corrected Calcium 8.6, Total Bilirubin 0.5, Aspartate Amino Transf (AST/SGOT) 191H, Alanine Aminotransferase (ALT/SGPT) 114H, Alkaline Phosphatase 32L, Total Protein 6.9, Albumin 3.5 11/23/19 11:27: Glucometer 195H 11/23/19 15:55: Glucometer 240H Microbiology 11/22/19 Urine Culture - Preliminary, Resulted Enterococcus species 11/21/19 MRSA Screen - Final, Complete MRSA not isolated Laboratory Tests 11/22/19 03:51 11/22/19 14:15 11/23/19 03:14 A/P: Assessment: WOODROW - 3 of undetermined etiology, suspect volume depletion, improved with hydration Metabolic acidosis and mild hyperkalemia due to ac renal failure, resolved with hydration Recurrent PAF ablation of persistent atrial fibrillation on 11/21/[address] Zhou H/o typical atrial flutter ablation on 05/13/2018 Obesity with obesity-hypoventilation syndrome and ORA treated with CPAP DM II, insulin requiring Hypertension: treated with amlodipine/benazepril combo H/o sinus node dysfunction and asymptomatic pauses that have treated with re duction of oral diltiazem by Dr Zhou Plan: * Keep in hospital on tele * Change iv dilt to oral long-actin dilt * Continue iv fluids * D/c diuretics. D/c benazepril * Monitor labs SHAGUFTA MATA MD FACP [facility] CCDS November 23, 2019 16:14
[2019-11-24] VITALS: BP 147/70
[2019-11-24] MEDS: ACETAMINOPHEN 500 MG TAB (TYLENOL) PO PRN (01:28)
[2019-11-24 03:48] LABS: WHITE BLOOD COUNT 7.9 10^3/uL (4.3-11.0)
[2019-11-24 03:49] LABS: BASOPHILS % (AUTO) 0 % (0-10); EOSINOPHILS # (AUTO) 0.1 10^3/uL (0.0-0.3); EOSINOPHILS % (AUTO) 1 % (0-10); HEMATOCRIT 32 % (40-54); HEMOGLOBIN 10.3 G/DL (13.3-17.7); LYMPHOCYTES # (AUTO) 0.9 X 10^3 (1.0-4.0); LYMPHOCYTES % (AUTO) 11 % (12-44); MEAN CORPUSCULAR HEMOGLOBIN 28 PG (25-34); MEAN CORPUSCULAR HGB CONC 33 G/DL (32-36); MEAN CORPUSCULAR VOLUME 86 FL (80-99); MEAN PLATELET VOLUME 10.9 FL (7.4-10.4); MONOCYTES # (AUTO) 0.5 X 10^3 (0.0-1.0); MONOCYTES % (AUTO) 6 % (0-12); NEUTROPHILS # (AUTO) 6.5 X 10^3 (1.8-7.8); NEUTROPHILS % (AUTO) 82 % (42-75); PLATELET COUNT 144 10^3/uL (130-400); RED CELL DISTRIBUTION WIDTH 14.6 % (10.0-14.5)
[2019-11-24 04:01] LABS: CHLORIDE 104 MMOL/L (98-107); POTASSIUM 4.3 MMOL/L (3.6-5.0); SODIUM 137 MMOL/L (135-145)
[2019-11-24 04:02] LABS: CALCIUM 8.8 MG/DL (8.5-10.1); GLUCOSE 200 MG/DL (70-105)
[2019-11-24 04:04] LABS: CARBON DIOXIDE 23 MMOL/L (21-32)
[2019-11-24 04:06] LABS: CREATININE SERUM 1.06 MG/DL (0.60-1.30); GFR ESTIMATED > 60; PHOSPHORUS 1.9 MG/DL (2.3-4.7)
[2019-11-24 04:07] LABS: BUN/CREATININE RATIO 20
[2019-11-24 04:08] LABS: MAGNESIUM 1.9 MG/DL (1.6-2.4)
[2019-11-24 05:19] VITALS: BP 149/77
[2019-11-24] MEDS: MULTIVIT W/MINERALS TAB (THERAGRAN M) PO SCH (06:42)
[2019-11-24] MEDS: inSUlin ASPART (NovoLOG) 1 UNIT/0.01 ML (CHARGE PER UNIT) SC SCH ×4 (06:43→12:00)
[2019-11-24] MEDS: ULTRA COQ10 100 MG PO SCH (07:56)
[2019-11-24] MEDS: LORATADINE (CLARITIN) 10 MG TAB PO SCH (07:57)
[2019-11-24] MEDS: AMIODARONE 200 MG (CORDARONE) TAB PO SCH (07:57)
[2019-11-24] MEDS: APIXABAN 5 MG (ELIQUIS) TABLET PO SCH (07:58)
[2019-11-24] MEDS: meTOproloL SUCCINATE 50 MG (TOPROL XL) TAB PO SCH (07:59)
[2019-11-24] MEDS: FENOFIBRATE 145 MG TABLET PO SCH (07:59)
[2019-11-24 08:00] VITALS: BP 150/90
[2019-11-24] MEDS: CYANOCOBALAMIN 1,000 MCG (VITAMIN B-12) TABLET PO SCH (08:00)
--- NOTE | 2019-11-24 08:01 | NUR ---
pt states he will take vit b-12 and vit d-2 at home from his home medications.
[2019-11-24] MEDS ORDERED: VITAMIN D2 1.25 MG (50,000 UNITS) CAP PO SCH (09:00)
[2019-11-24 13:11] VITALS: BP 139/76
--- NOTE | 2019-11-24 15:40 | Cardiology Progress Note ---
Cardiology SOAP Progress Note Subjective: No cardiac complaints. Objective: I&O/Vital Signs 11/24/19 11/24/19 11/24/19 11/24/19 05:19 07:00 08:00 08:00 Temp 36.3 37.0 Pulse 110 113 114 Resp 20 19 B/P (MAP) 149/77 (101) 150/90 (110) Pulse Ox 96 97 O2 Delivery Room Air Room Air Room Air 11/24/19 11/24/19 11/24/19 11/24/19 11:28 12:00 12:17 13:11 Temp 36.0 Pulse 64 73 70 Resp 16 16 B/P (MAP) 139/76 (97) Pulse Ox 94 O2 Delivery Room Air Room Air Weight (Pounds): 361 Weight (Ounces): 0.0 Weight (Calculated Kilograms): 163.237191 Constitutional: appears stated age, AAO x 3; No apparent distress; well- developed, well-nourished Respiratory: chest is bilaterally symmetric, lungs clear to auscultation Cardiovascular: irregularly irregular, S1 and S2, systolic murmur (faint KATIA at card base) Gastrointestional: soft, audible bowel sounds; No spleenomegaly Extremities: normal range of motion, non-tender, normal inspection; No clubbing, No cyanosis, No significant edema Neurologic/Psychiatric: no motor/sensory deficits, alert, normal mood/affect, oriented x 3, power is 5/5 both on sides Skin: normal color, warm/dry; No cyanosis, No rash, No ulcerations Results/Procedures: Labs Laboratory Tests 11/23/19 15:55: Glucometer 240H 11/23/19 19:52: Glucometer 185H 11/24/19 03:40: White Blood Count 7.9, Red Blood Count 3.67L, Hemoglobin 10.3L, Hematocrit 32L, Mean Corpuscular Volume 86, Mean Corpuscular Hemoglobin 28, Mean Corpuscular Hemoglobin Concent 33, Red Cell Distribution Width 14.6H, Platelet Count 144, Mean Platelet Volume 10.9H, Neutrophils (%) (Auto) 82H, Lymphocytes (%) (Auto) 11L, Monocytes (%) (Auto) 6, Eosinophils (%) (Auto) 1, Basophils (%) (Auto) 0, Neutrophils # (Auto) 6.5, Lymphocytes # (Auto) 0.9L, Monocytes # (Auto) 0.5, Eosinophils # (Auto) 0.1, Basophils # (Auto) 0.0, Sodium Level 137, Potassium Level 4.3, Chloride Level 104, Carbon Dioxide Level 23, Anion Gap 10, Blood Urea Nitrogen 21H, Creatinine 1.06, Estimat Glomerular Filtration Rate > 60, BUN/Creatinine Ratio 20, Glucose Level 200H, Calcium Level 8.8, Phosphorus Level 1.9L, Magnesium Level 1.9 11/24/19 11:09: Glucometer 235H Microbiology 11/22/19 Urine Culture - Preliminary, Resulted Enterococcus species 11/21/19 MRSA Screen - Final, Complete MRSA not isolated A/P: Assessment/Dx: Persistent atrial fibrillation status post persistent atrial fibrillation ablation. Hemodilution, drop in hemoglobin, Obstructive sleep apnea, Morbid obesity Plan: Persistent atrial fibrillation ablation is recommended. Successful persistent atrial fibrillation ablation on 11/21/2019. However patient was kept another day because hemoglobin went from 14-10. Significant IV fluids were given and therefore likely hemodilution and mild groin bleeding. However patient went into atrial fibrillation early Sunday morning. When I saw him today he wasn't controlled atrial fibrillation. So the plan was to perform cardioversion later today. However patient converted to sinus rhythm at around noontime and continues to be in sinus rhythm for the last 3-4 hours. We will therefore discharge the patient on amiodarone, Eliquis and Cardizem. He will follow-up in the office in 2-3 weeks. Morbid obesity Obstructive sleep apnea, continue CPAP therapy. Thank you for your consultation. Please call me if you have any questions. Mckenna Zhou MD, FACP, FACC, FSCAI, FHRS, CCDS Interventional Cardiology Cardiac Electrophysiology Vascular Medicine and Endovascular Interventions Jacy ZHOU MD November 24, 2019 15:40
[2019-11-24 15:41] LABS: BILIRUBIN,URINE NEGATIVE (NEGATIVE); CLARITY,URINE CLEAR; COLOR,URINE YELLOW; GLUCOSE, URINE (UA) TRACE (NEGATIVE); KETONES,URINE NEGATIVE (NEGATIVE); LEUKOCYTE ESTERASE ,URINE NEGATIVE (NEGATIVE); NITRITE,URINE NEGATIVE (NEGATIVE); PROTEIN,URINE 1+ (NEGATIVE)
[2019-11-24] MEDS ORDERED: AMIO200T4 PO (15:42)
[2019-11-24 15:45] VITALS: BP 176/97
[2019-11-24 15:51] LABS: BACTERIA,URINE MODERATE /HPF; HYALINE CASTS, URINE RARE /LPF; RBC,URINE 0-2 /HPF; SQUAMOUS EPITHELIAL CELL,UR 0-2 /HPF; WBC,URINE 25-50 /HPF
--- NOTE | 2019-11-24 15:55 | NUR ---
PT WANTING TO GO AHEAD AND GO HOME. WILL FOLLOW UP ON UA WITH DR HARPER. DR HARPER NOTIFIED PT DISCHARGED HOME WITH .
[2019-11-24 16:00] VITALS: BP 176/94
--- NOTE | 2019-11-24 18:16 | Discharge Summary ---
Diagnosis/Chief Complaint Date of Admission November 22, 2019 at 12:51 Date of Discharge November 24, 2019 at 16:00 Discharge Date: November 24, [address] Zhou: Assessment/Dx: Persistent atrial fibrillation status post persistent atrial fibrillation ablation. Hemodilution, drop in hemoglobin, Obstructive sleep apnea, Morbid obesity Plan: Persistent atrial fibrillation ablation is recommended. Successful persistent atrial fibrillation ablation on 11/21/2019. However patient was kept another day because hemoglobin went from 14-10. Significant IV fluids were given and therefore likely hemodilution and mild groin bleeding. However patient went into atrial fibrillation early Sunday morning. When I saw him today he wasn't controlled atrial fibrillation. So the plan was to perform cardioversion later today. However patient converted to sinus rhythm at around noontime and matias mahamedes to be in sinus rhythm for the last 3-4 hours. We will therefore discharge the patient on amiodarone, Eliquis and Cardizem. He will follow-up in the office in 2-3 weeks. Morbid obesity Obstructive sleep apnea, continue CPAP therapy. Discharge Summary Discharge Physical Examination Allergies: Coded Allergies: NKANo Known Allergies (Verified Allergy, Unknown, 03/15/07) Vitals & I&Os Vital Signs Date Time Temp Pulse Resp B/P (MAP) Pulse Ox O2 Delivery O2 Flow Rate FiO2 11/24/19 16:00 35.9 75 20 176/94 (121) 94 Room Air 11/22/19 13:58 28.00 General Appearance: Alert, Oriented X3, Cooperative Respiratory: Clear to Auscultation Cardiovascular: Regular Rate Neuro: Normal Gait, Normal Speech, Strength at 5/5 X4 Ext Hospital Course Was the Problem List Reviewed?: Yes Hospital course: Pt had a very complex hospital course for a full three days after he was admitted for ablation. He did have the EP study done, mapping performed but did have an episode of AFIB with RVR, he will undergo cardioversion today and hopefully be able to discharge home today after cardioversion. I talked to him about Dr. Manuel and the lap band and gastric sleeve, he will see him in consultation because that in itself will help because of the severity of ORA, puts him at risk even though he uses CPAP it may not be enough. Overall he did have acute renal failure with creatinine of 2.4 post- procedure and that has been completely resolved with gentle IV fluids. DM management is adequate on home dosing. Maintain on oral anticoagulation for stroke prophylaxis from AFIB. Rhythm disturbances have been going on for many years. He will have close follow-up with me and cardiology following discharge. Labs (last 24 hrs) Laboratory Tests 11/17/19 13:20: Coronavirus (COVID-19)(PCR) Negative 11/21/19 07:50: White Blood Count 9.3, Red Blood Count 5.17, Hemoglobin 14.7, Hematocrit 43, Mean Corpuscular Volume 84, Mean Corpuscular Hemoglobin 28, Mean Corpuscular Hemoglobin Concent 34, Red Cell Distribution Width 14.9H, Platelet Count 256, Mean Platelet Volume 10.5H, Prothrombin Time 14.7, INR Comment 1.1, Activated Partial Thromboplast Time 29, Sodium Level 141, Potassium Level 3.9, Chloride Level 101, Carbon Dioxide Level 25, Anion Gap 15H, Blood Urea Nitrogen 28H, Creatinine 1.45H, Estimat Glomerular Filtration Rate 49, BUN/Creatinine Ratio 19, Glucose Level 171H, Calcium Level 9.5, Corrected Calcium 9.4, Total Bilirubin 0.4, Aspartate Amino Transf (AST/SGOT) 28, Alanine Aminotransferase (ALT/SGPT) 35, Alkaline Phosphatase 42, Total Protein 8.3H, Albumin 4.1 11/21/19 15:44: Glucometer 325H 11/21/19 22:17: Glucometer 394H 11/22/19 03:51: White Blood Count 16.2H, Red Blood Count 4.42, Hemoglobin 12.3L, Hematocrit 38L, Mean Corpuscular Volume 87, Mean Corpuscular Hemoglobin 28, Mean Corpuscular Hemoglobin Concent 32, Red Cell Distribution Width 15.0H, Platelet Count 207, Mean Platelet Volume 11.0H, Sodium Level 135, Potassium Level 5.4H, Chloride Level 103, Carbon Dioxide Level 16L, Anion Gap 16H, Blood Urea Nitrogen 41H, Creatinine 2.45H, Estimat Glomerular Filtration Rate 27, BUN/Creatinine Ratio 17, Glucose Level 386H, Calcium Level 7.7L, Beta-Hydroxybutyrate (Chem panel) 0.09 11/22/19 12:06: Glucometer 290H 11/22/19 13:40: Urine Color YELLOW, Urine Clarity CLEAR, Urine pH 6.0, Urine Specific [place] 1.015L, Urine Protein NEGATIVE, Urine Glucose (UA) TRACEH, Urine Ketones NEGATIVE, Urine Nitrite NEGATIVE, Urine Bilirubin NEGATIVE, Urine Urobilinogen 0.2, Urine Leukocyte Esterase NEGATIVE, Urine RBC (Auto) 3+H, Urine RBC 5-10H, Urine WBC 5-10H, Urine Squamous Epithelial Cells NONE, Urine Crystals NONE, Urine Bacteria NEGATIVE, Urine Casts NONE, Urine Mucus NEGATIVE, Urine Culture Indicated YES 11/22/19 14:15: Sodium Level 136, Potassium Level 4.2, Chloride Level 99, Carbon Dioxide Level 23, Anion Gap 14, Blood Urea Nitrogen 39H, Creatinine 2.05H, Estimat Glomerular Filtration Rate 33, BUN/Creatinine Ratio 19, Glucose Level 283H, Calcium Level 8.1L 11/22/19 15:54: Glucometer 255H 11/22/19 20:15: Glucometer 263H 11/23/19 03:14: White Blood Count 10.1, Red Blood Count 3.87L, Hemoglobin 10.9L, Hematocrit 33L, Mean Corpuscular Volume 86, Mean Corpuscular Hemoglobin 28, Mean Corpuscular Hemoglobin Concent 33, Red Cell Distribution Width 14.9H, Platelet Count 153, Mean Platelet Volume 10.5H, Neutrophils (%) (Auto) 85H, Lymphocytes (%) (Auto) 7L, Monocytes (%) (Auto) 7, Eosinophils (%) (Auto) 0, Basophils (%) (Auto) 0, Neutrophils # (Auto) 8.6H, Lymphocytes # (Auto) 0.7L, Monocytes # (Auto) 0.8, Eosinophils # (Auto) 0.0, Basophils # (Auto) 0.0, Sodium Level 138, Potassium Level 4.3, Chloride Level 103, Carbon Dioxide Level 24, Anion Gap 11, Blood Urea Nitrogen 29H, Creatinine 1.29, Estimat Glomerular Filtration Rate 56, BUN/Creatinine Ratio 22, Glucose Level 141H, Calcium Level 8.2L, Corrected Calcium 8.6, Total Bilirubin 0.5, Aspartate Amino Transf (AST/SGOT) 191H, Alanine Aminotransferase (ALT/SGPT) 114H, Alkaline Phosphatase 32L, Total Protein 6.9, Albumin 3.5 11/23/19 11:27: Glucometer 195H 11/23/19 15:55: Glucometer 240H 11/23/19 19:52: Glucometer 185H 11/24/19 03:40: White Blood Count 7.9, Red Blood Count 3.67L, Hemoglobin 10.3L, Hematocrit 32L, Mean Corpuscular Volume 86, Mean Corpuscular Hemoglobin 28, Mean Corpuscular Hemoglobin Concent 33, Red Cell Distribution Width 14.6H, Platelet Count 144, Mean Platelet Volume 10.9H, Neutrophils (%) (Auto) 82H, Lymphocytes (%) (Auto) 11L, Monocytes (%) (Auto) 6, Eosinophils (%) (Auto) 1, Basophils (%) (Auto) 0, Neutrophils # (Auto) 6.5, Lymphocytes # (Auto) 0.9L, Monocytes # (Auto) 0.5, Eosinophils # (Auto) 0.1, Basophils # (Auto) 0.0, Sodium Level 137, Potassium Level 4.3, Chloride Level 104, Carbon Dioxide Level 23, Anion Gap 10, Blood Urea Nitrogen 21H, Creatinine 1.06, Estimat Glomerular Filtration Rate > 60, BUN/Creatinine Ratio 20, Glucose Level 200H, Calcium Level 8.8, Phosphorus Level 1.9L, Magnesium Level 1.9 11/24/19 11:09: Glucometer 235H 11/24/19 15:35: Urine Color YELLOW, Urine Clarity CLEAR, Urine pH 6.0, Urine Specific [place] 1.020, Urine Protein 1+H, Urine Glucose (UA) TRACEH, Urine Ketones NEGATIVE, Urine Nitrite NEGATIVE, Urine Bilirubin NEGATIVE, Urine Urobilinogen 1.0, Urine Leukocyte Esterase NEGATIVE, Urine RBC (Auto) NEGATIVE, Urine RBC 0-2, Urine WBC 25-50H, Urine Squamous Epithelial Cells 0-2, Urine Crystals NONE, Urine Bacteria MODERATEH, Urine Casts PRESENT, Urine Hyaline Casts RARE, Urine Mucus NEGATIVE, Urine Culture Indicated YES 11/24/19 15:37: Glucometer 209H Microbiology 11/24/19 Urine Culture - Preliminary, Resulted Enterococcus species 11/21/19 MRSA Screen - Final, Complete MRSA not isolated Pending Labs Microbiology Date/Time Source Procedure Growth Status 11/24/19 15:35 Urine Clean Catch Urine Culture - Preliminary Enterococcus species Resulted 11/22/19 13:40 Urine Not Otherwise Specified Urine Culture - Final Enterococcus faecalis Complete 11/21/19 07:50 Nasal MRSA Screen - Final MRSA not isolated Complete Laboratory Tests 11/17/19 13:20: Coronavirus (COVID-19)(PCR) Negative 11/21/19 07:50: White Blood Count 9.3, Red Blood Count 5.17, Hemoglobin 14.7, Hematocrit 43, M kushal Corpuscular Volume 84, Mean Corpuscular Hemoglobin 28, Mean Corpuscular Hemoglobin Concent 34, Red Cell Distribution Width 14.9, Platelet Count 256, Mean Platelet Volume 10.5, Prothrombin Time 14.7, INR Comment 1.1, Activated Partial Thromboplast Time 29, Sodium Level 141, Potassium Level 3.9, Chloride Level 101, Carbon Dioxide Level 25, Anion Gap 15, Blood Urea Nitrogen 28, Cr eatinine 1.45, Estimat Glomerular Filtration Rate 49, BUN/Creatinine Ratio 19, Glucose Level 171, Calcium Level 9.5, Corrected Calcium 9.4, Total Bilirubin 0.4, Aspartate Amino Transf (AST/SGOT) 28, Alanine Aminotransferase (ALT/SGPT) 35, Alkaline Phosphatase 42, Total Protein 8.3, Albumin 4.1 11/21/19 15:44: Glucometer 325 11/21/19 22:17: Glucometer 394 11/22/19 03:51: White Blood Count 16.2, Red Blood Count 4.42, Hemoglobin 12.3, Hematocrit 38, Mean Corpuscular Volume 87, Mean Corpuscular Hemoglobin 28, Mean Corpuscular Hemoglobin Concent 32, Red Cell Distribution Width 15.0, Platelet Count 207, Mean Platelet Volume 11.0, Sodium Level 135, Potassium Level 5.4, Chloride Level 103, Carbon Dioxide Level 16, Anion Gap 16, Blood Urea Nitrogen 41, Creatinine 2.45, Estimat Glomerular Filtration Rate 27, BUN/Creatinine Ratio 17, Glucose Level 386, Calcium Level 7.7, Beta-Hydroxybutyrate (Chem panel) 0.09 11/22/19 12:06: Glucometer 290 11/22/19 13:40: Urine Color YELLOW, Urine Clarity CLEAR, Urine pH 6.0, Urine Specific [place] 1.015, Urine Protein NEGATIVE, Urine Glucose (UA) TRACE, Urine Ketones NEGATIVE, Urine Nitrite NEGATIVE, Urine Bilirubin NEGATIVE, Urine Urobilinogen 0.2, Urine Leukocyte Esterase NEGATIVE, Urine RBC (Auto) 3+, Urine RBC 5-10, Urine WBC 5- 10, Urine Squamous Epithelial Cells NONE, Urine Crystals NONE, Urine Bacteria NEGATIVE, Urine Casts NONE, Urine Mucus NEGATIVE, Urine Culture Indicated YES 11/22/19 14:15: Sodium Level 136, Potassium Level 4.2, Chloride Level 99, Carbon Dioxide Level 23, Anion Gap 14, Blood Urea Nitrogen 39, Creatinine 2.05, Estimat Glomerular Filtration Rate 33, BUN/Creatinine Ratio 19, Glucose Level 283, Calcium Level 8.1 11/22/19 15:54: Glucometer 255 11/22/19 20:15: Glucometer 263 11/23/19 03:14: White Blood Count 10.1, Red Blood Count 3.87, Hemoglobin 10.9, Hematocrit 33, Mean Corpuscular Volume 86, Mean Corpuscular Hemoglobin 28, Mean Corpuscular Hemoglobin Concent 33, Red Cell Distribution Width 14.9, Platelet Count 153, Rachelle n Platelet Volume 10.5, Neutrophils (%) (Auto) 85, Lymphocytes (%) (Auto) 7, Monocytes (%) (Auto) 7, Eosinophils (%) (Auto) 0, Basophils (%) (Auto) 0, Neutrophils # (Auto) 8.6, Lymphocytes # (Auto) 0.7, Monocytes # (Auto) 0.8, Eosinophils # (Auto) 0.0, Basophils # (Auto) 0.0, Sodium Level 138, Potassium Level 4.3, Chloride Level 103, Carbon Dioxide Level 24, Anion Gap 11, Blood Urea Nitrogen 29, Creatinine 1.29, Estimat Glomerular Filtration Rate 56, BUN/Creatinine Ratio 22, Glucose Level 141, Calcium Level 8.2, Corrected Calcium 8.6, Total Bilirubin 0.5, Aspartate Amino Transf (AST/SGOT) 191, Alanine Aminotransferase (ALT/SGPT) 114, Alkaline Phosphatase 32, Total Protein 6.9, Albumin 3.5 11/23/19 11:27: Glucometer 195 11/23/19 15:55: Glucometer 240 11/23/19 19:52: Glucometer 185 11/24/19 03:40: White Blood Count 7.9, Red Blood Count 3.67, Hemoglobin 10.3, Hematocrit 32, Mean Corpuscular Volume 86, Mean Corpuscular Hemoglobin 28, Mean Corpuscular Hemoglobin Concent 33, Red Cell Distribution Width 14.6, Platelet Count 144, Mean Platelet Volume 10.9, Neutrophils (%) (Auto) 82, Lymphocytes (%) (Auto) 11, Monocytes (%) (Auto) 6, Eosinophils (%) (Auto) 1, Basophils (%) (Auto) 0, Neutro phils # (Auto) 6.5, Lymphocytes # (Auto) 0.9, Monocytes # (Auto) 0.5, Eosinophils # (Auto) 0.1, Basophils # (Auto) 0.0, Sodium Level 137, Potassium Level 4.3, Chloride Level 104, Carbon Dioxide Level 23, Anion Gap 10, Blood Urea Nitrogen 21, Creatinine 1.06, Estimat Glomerular Filtration Rate > 60, BUN/Creatinine Ratio 20, Glucose Level 200, Calcium Level 8.8, Phosphorus Level 1.9, Magnesium Level 1.9 11/24/19 11:09: Glucometer 235 11/24/19 15:35: Urine Color YELLOW, Urine Clarity CLEAR, Urine pH 6.0, Urine Specific [place] 1.020, Urine Protein 1+, Urine Glucose (UA) TRACE, Urine Ketones NEGATIVE, Urine Nitrite NEGATIVE, Urine Bilirubin NEGATIVE, Urine Urobilinogen 1.0, Urine Leukocyte Esterase NEGATIVE, Urine RBC (Auto) NEGATIVE, Urine RBC 0-2, Urine WBC 25-50, Urine Squamous Epithelial Cells 0-2, Urine Crystals NONE, Urine Bacteria MODERATE, Urine Casts PRESENT, Urine Hyaline Casts RARE, Urine Mucus NEGATIVE, Urine Culture Indicated YES 11/24/19 15:37: Glucometer 209 Discharge Home Medications: Active Scripts Active Amiodarone HCl 200 Mg Tablet 200 Mg PO BID 90 Days Diltiazem 24Hr ER (Diltiazem HCl) 180 Mg Cap.er.24h 240 Mg PO DAILY Metoprolol Succinate 50 Mg Tab.er.24h 50 Mg PO BID 90 Days Reported Mary Allergy (Fexofenadine HCl) 60 Mg Tablet 60 Mg PO DAILY Furosemide 40 Mg Tablet 40 Mg PO EVENING Furosemide 40 Mg Tablet 80 Mg PO DAILY K-Tab ER (Potassium Chloride) 10 Meq Tablet.er 10 Meq PO DAILY PRN HAS NOT TAKEN, HAS ONLY IF NEEDED Chewable-Holli (Multivitamin) 1 Each Tab.chew 1 Tab.chew PO DAILY Vitamin B-12 (Cyanocobalamin (Vitamin B-12)) 1,000 Mcg Tablet 1,000 Mcg PO DAILY Co Q-10 100 mg Softgel (Ubidecarenone/Vit E Acetate) 1 Each Capsule 100 Mg PO DAILY Krill Oil 500 Mg Capsule 500 Mg PO DAILY Vitamin D2 (Ergocalciferol (Vitamin D2)) 1,250 Mcg Capsule 1,250 Mcg PO MO Lotrel 10-20 mg Capsule (Amlodipine/Benazepril) 1 Cap Cap 1 Cap PO DAILY Eliquis (Apixaban) 5 Mg Tablet 5 Mg PO BID Fenofibrate (Fenofibrate Nanocrystallized) 145 Mg Tablet 145 Mg PO DAILY Simvastatin 20 Mg Tablet 20 Mg PO DAILY Metformin HCl 1,000 Mg Tablet 1,000 Mg PO BID WITH MEALS Novolog Flexpen (Insulin Aspart) 300 Units/3 Ml Solution 20 Units SC TIDAC Lantus Solostar (Insulin Glargine,Hum.rec.anlog) 100 Unit/1 Ml Insuln.pen 30 Units SC HS Glimepiride 2 Mg Tablet 2 Mg PO BID Instructions to patient/family Please see electronic discharge instructions given to patient. MARCIE HARPER DO November 24, 2019 18:15
== END 2019-11-24 16:00 | disposition home or self-care (01) | DRG 271 ==
LOC: CATH 07:05 → ICU 15:52 → CATH 11-22 12:51 → ICU 11-22 12:51
PROVIDERS: ADMIT Internal Medicine Interventional Cardiology; ATTEND Internal Medicine Interventional Cardiology
PROC: 025S3ZZ Destruction of Right Pulmonary Vein, Percutaneous Approach (ICD-10-PCS; principal; 2019-11-21)
PROC: 025T3ZZ Destruction of Left Pulmonary Vein, Percutaneous Approach (ICD-10-PCS; 2019-11-21)
PROC: 5A2204Z Restoration of Cardiac Rhythm, Single (ICD-10-PCS; 2019-11-21)
DX: I48.19 Other persistent atrial fibrillation (principal); N17.9 Acute kidney failure, unspecified; E66.2 Morbid (severe) obesity with alveolar hypoventilation; Z68.43 Body mass index [BMI] 50.0-59.9, adult; E87.2 Acidosis; E86.1 Hypovolemia; I47.1 Supraventricular tachycardia; I10 Essential (primary) hypertension; E11.65 Type 2 diabetes mellitus with hyperglycemia; J30.2 Other seasonal allergic rhinitis; E78.5 Hyperlipidemia, unspecified; M54.9 Dorsalgia, unspecified; E87.5 Hyperkalemia; Z79.4 Long term (current) use of insulin
CPT/HCPCS: 36415; 80048; 80053; 81000; 82962; 83735; 84100; 85025; 85027; 85347; 85610; 85730; 87077; 87081; 87088; 87186; 87635; 92960; 93005; 93312; 93320; 93325; 93613; 93653; 93656; 93662; 94660

== ENCOUNTER → 2020-04-26 | Outpatient (CLI) | payer BC ==
[~2020-04-26] MED LIST changes: +ASPI-1238 PO; -ASPI-983 PO; +FEXO-14 PO; +MULT-567 PO; -MULT1TAB69 PO
== END ==
LOC: CARD 09:16
PROVIDERS: ATTEND Internal Medicine Interventional Cardiology
DX: I11.9 Hypertensive heart disease without heart failure (principal); I48.19 Other persistent atrial fibrillation; G47.33 Obstructive sleep apnea (adult) (pediatric); I49.5 Sick sinus syndrome; I48.3 Typical atrial flutter; Z20.828 Contact with and (suspected) exposure to other viral communicable diseases
CPT/HCPCS: 93306

== ENCOUNTER 2021-06-14 05:38 | Outpatient (CLI) | payer BC ==
[~2021-06-14] VITALS: Ht 185.4 cm; Wt 174.0 kg
[~2021-06-14 05:38] MED LIST changes: -AMIO200T4 PO; +AMIO200T65 PO; -DRON400T2 PO; +DRON400T6 PO; +ERGO1250 PO
== END 2021-06-14 11:33 | disposition home or self-care (01) ==
LOC: PREOP 05:38
PROVIDERS: ATTEND Surgery
DX: Z01.818 Encounter for other preprocedural examination (principal)

== ENCOUNTER 2021-06-21 11:16 | Day surgery (SDC) | payer BC ==
[~2021-06-21] VITALS: Ht 185.4 cm; Wt 174.0 kg
[2021-06-21] MEDS ORDERED: LACTATED RINGERS 1,000 ML IV ONE (11:24)
[2021-06-21] MEDS ORDERED: LACTATED RINGERS 1,000 ML IV STA (11:31)
[2021-06-21 11:45] VITALS: BP 151/78
[2021-06-21] MEDS ORDERED: PROPOFOL INJECTION 50 ML IV ONE ×2 (13:56→14:16)
[2021-06-21] MEDS ORDERED: KETAMINE SYRINGE 50 MG/5 ML SYRINGE ONE (13:56)
--- NOTE | 2021-06-21 14:43 | Progress Note-Post Operative ---
Post-Operative Progess Note Surgeon (s)/Satellite Dish Installer (s) Surgeon JANA DON DO Satellite Dish Installer: na Pre-Operative Diagnosis screening colonoscopy Post-Operative Diagnosis diverticulosis, colon polyps Procedure & Operative Findings Date of Procedure 06/21/21 Procedure Performed/Findings colonoscopy c hot bx polypectomy x 7 Anesthesia Type per fitness centre manager Estimated Blood Loss Estimated blood loss (mL): none Specimens/Packing Specimens Removed polyps JANA DON DO Jun 21, 2021 14:43
[2021-06-21 14:45] VITALS: BP 106/52
--- NOTE | 2021-06-21 14:45 | Discharge Inst-Simple/Standard ---
Discharge Inst-Standard Patient Instructions/Follow Up Plan of Care/Instructions/FU: Qiana 2 weeks hold husam 3 days Activity as Tolerated: Yes Discharge Diet: Regular Diet JANA DON DO Jun 21, 2021 14:44
[2021-06-21 14:50] VITALS: BP 106/53
[2021-06-21 15:15] VITALS: BP 137/66
--- NOTE | 2021-06-21 15:16 | Anesthesia-General Post-Op ---
MAC Patient Condition Mental Status/LOC: Same as Preop Cardiovascular: Satisfactory Nausea/Vomiting: Absent Respiratory: Satisfactory Pain: Controlled Complications: Absent Post Op Complications Complications None Follow Up Care/Instructions Patient Instructions None needed. Anesthesiology Discharge Order Discharge Order Patient is doing well, no complaints, stable vital signs, no apparent adverse anesthesia problems. No complications reported per nursing. MARS WREN CRNA Jun 21, 2021 15:16
[2021-06-21 15:35] VITALS: BP 137/66
--- NOTE | 2021-06-21 21:13 | OPERATIVE REPORT ---
DATE OF SERVICE: 06/21/2021 PREOPERATIVE DIAGNOSIS: Screening colonoscopy. POSTOPERATIVE DIAGNOSIS: Colon polyps, diverticulosis. PROCEDURE: Colonoscopy with hot biopsy polypectomy x7. SURGEON: Jana Salamanca DO ANESTHESIA: Per INSTRUMENT REPAIR SUPERVISOR. ESTIMATED BLOOD LOSS: None. COMPLICATIONS: None. INDICATIONS: The patient is a 65-year-old male needing screening colonoscopy. He understands risks and benefits of procedure and wished to proceed. Consent was signed in the chart. DESCRIPTION OF PROCEDURE: The patient was taken to the endoscopy suite, placed in left lateral recumbent position. Timeout was performed. Digital rectal exam was performed. There were no palpable polyps, masses or ulcerations. Scope was inserted in the rectum and advanced towards the cecum. In the descending colon, there were 2 polyps, which were present, which hot biopsy polypectomy was performed. Scope was then continued to be slowly inserted. In the splenic flexure, another polyp was present, which hot biopsy polypectomy was performed. Scope was then continued to be advanced all the way to cecum without difficulty. Prep was adequate. Scope was then slowly retracted back. No polyps, masses or ulcerations within the cecum. In ascending colon, polyp was present, which hot biopsy polypectomy was performed. Scope was then continuously retracted back. No polyps, masses or ulcerations within the transverse colon. In the splenic flexure, another polyp was present, which hot biopsy polypectomy was performed. Scope was then continuously retracted back in the descending colon, another polyp was present, which hot biopsy polypectomy was performed. Scope was then continuously retracted back some and in the sigmoid colon, another polyp was present, which hot biopsy polypectomy was performed. Throughout the colon, some diverticulosis is present. Scope was then slowly retracted back into the rectum where it was inserted and retracted multiple times, noting no other pathology. Scope was then slowly retracted back until completely removed. The patient tolerated procedure well without any complications, taken to recovery room in stable condition. RECOMMENDATIONS: The patient recommended repeat colonoscopy in 3 years. We would recommend high fiber diet due to diverticulosis. Any issues before three years, the patient should be reevaluated at that time. The patient will follow up in two weeks to discuss pathology results. Job ID: [id number] DocumentID: [id number] Dictated Date: 06/21/2021 14:48:01 Real Estate Asset Manager Date: 06/21/2021 21:12:42 Dictated By: JANA SALAMANCA DO
== END 2021-06-21 15:35 | disposition home or self-care (01) ==
LOC: ENDO 11:16
PROVIDERS: ATTEND Surgery
DX: Z12.11 Encounter for screening for malignant neoplasm of colon (principal); D12.4 Benign neoplasm of descending colon; D12.2 Benign neoplasm of ascending colon; D12.3 Benign neoplasm of transverse colon; K57.30 Diverticulosis of large intestine without perforation or abscess without bleeding; I10 Essential (primary) hypertension; G47.33 Obstructive sleep apnea (adult) (pediatric); I48.91 Unspecified atrial fibrillation; E66.01 Morbid (severe) obesity due to excess calories; E11.9 Type 2 diabetes mellitus without complications; E07.9 Disorder of thyroid, unspecified; Z79.899 Other long term (current) drug therapy; Z79.01 Long term (current) use of anticoagulants; Z68.43 Body mass index [BMI] 50.0-59.9, adult; Z79.890 Hormone replacement therapy; Z79.84 Long term (current) use of oral hypoglycemic drugs; Z79.4 Long term (current) use of insulin
CPT/HCPCS: 82947

== ENCOUNTER → 2022-03-10 | Outpatient (CLI) | payer BC, MEDICARE ==
[~2022-03-10] MED LIST changes: -TRIA1CAP4 PO; +TRIA1CAP84 PO
== END ==
LOC: CARD 13:30
PROVIDERS: ATTEND Physician Assistant
DX: I11.9 Hypertensive heart disease without heart failure (principal)
CPT/HCPCS: 93306

== ENCOUNTER → 2022-04-12 | Outpatient (CLI) | payer BC, MEDICARE ==
[~2022-04-12] MED LIST changes: +CATHETER FLUSH 10 ML SYR IVP PRN; +REGADENOSON 0.4 MG/5 ML SYR (LEXISCAN) IV ONE
[2022-04-12 13:26] VITALS: BP 187/96
--- NOTE | 2022-04-12 15:15 | Cardiology Stress Test Report ---
Stress Test Report Date of Procedure/Referring: Date of Procedure: Apr 12, 2022 PCP Kayleigh Fox DO Admitting Physician Admitting Physician: Attending Physician: Sunni Hutchins Indications: CP Baseline Heart Rate: 70 Baseline Blood Pressure: Blood Pressure Systolic: 187 Blood Pressure Diastolic: 96 Baseline Vitals Vital Signs Date Time Temp Pulse Resp B/P (MAP) Pulse Ox O2 Delivery O2 Flow Rate FiO2 04/12/22 13:26 70 187/96 (126) 98 Baseline EKG: Baseline EKG: NSR Summary After explaining the procedure to the patient, he signed a consent and then brought to the stress nuclear laboratory. Patient received 0.4 mg Lexiscan for stress test, ECG, heart rate and blood pressure were monitored continuously. Resting and stress dose of radio tracer were injected, imaging was acquired and reviewed in short axis, horizontal long axis and vertical long axis views. TID: 1.24 SSS: 4 SDS: 4 EF: 53 1. Patient tolerated Lexiscan well 2. Mild reversible ischemia involving the mid to apical anterior wall 3. Transient ischemic dilatation 1.24 4. Normal left ventricular size, ejection fraction 53% Copy Copies To 1: KAYLEIGH FOX BASHAR J MD Apr 12, 2022 15:15
== END ==
LOC: CARD 11:41
PROVIDERS: ATTEND Physician Assistant
DX: R07.9 Chest pain, unspecified (principal); I10 Essential (primary) hypertension
CPT/HCPCS: 78452; 93017; A9502

== ENCOUNTER 2022-04-26 06:58 | Day surgery (SDC) | payer BC, MEDICARE ==
[~2022-04-26] VITALS: Ht 185.4 cm; Wt 165.3 kg
[2022-04-26] VITALS (9 sets, daily range): BP systolic 97–149; BP diastolic 66–103
[~2022-04-26 06:58] MED LIST changes: -CATHETER FLUSH 10 ML SYR IVP PRN; -REGADENOSON 0.4 MG/5 ML SYR (LEXISCAN) IV ONE
[2022-04-26] MEDS ORDERED: NS IV 1000 ML 1,000 ML ONE (07:05)
[2022-04-26] MEDS ORDERED: LIDOCAINE 1% INJ 30 ML (XYLOCAINE) VIAL ONE (07:05)
[2022-04-26] MEDS ORDERED: HEParin (CATH LAB) 2,000 ML IV ONE (07:05)
[2022-04-26] MEDS ORDERED: NS IV 1000 ML 1,000 ML IV SCH ×2 (07:15→09:00)
[2022-04-26 07:30] LABS: HEMATOCRIT 39 % (40-54); HEMOGLOBIN 13.1 g/dL (13.3-17.7); MEAN CORPUSCULAR HEMOGLOBIN 28 pg (25-34); MEAN CORPUSCULAR HGB CONC 33 g/dL (32-36); MEAN CORPUSCULAR VOLUME 85 fL (80-99); MEAN PLATELET VOLUME 10.4 fL (9.0-12.2); PLATELET COUNT 220 10^3/uL (130-400); WHITE BLOOD COUNT 8.9 10^3/uL (4.3-11.0)
[2022-04-26 07:32] LABS: BILIRUBIN,URINE NEGATIVE (NEGATIVE); CLARITY,URINE CLEAR; COLOR,URINE YELLOW; GLUCOSE, URINE (UA) NEGATIVE (NEGATIVE); KETONES,URINE NEGATIVE (NEGATIVE); LEUKOCYTE ESTERASE ,URINE NEGATIVE (NEGATIVE); NITRITE,URINE NEGATIVE (NEGATIVE); PH,URINE 5.5 (5-9); PROTEIN,URINE NEGATIVE (NEGATIVE)
[2022-04-26 07:38] LABS: BACTERIA,URINE TRACE /HPF; SQUAMOUS EPITHELIAL CELL,UR 0-2 /HPF; WBC,URINE 0-2 /HPF
--- NOTE | 2022-04-26 07:42 | Diagnostic Imaging Report ---
INDICATION: Abnormal stress test. Screening pre-heart catheterization. Comparison with 08/01/2019. FINDINGS: Portable chest shows the lungs to be well-aerated and clear. Heart is not enlarged. No pulmonary edema or hilar adenopathy. No pneumothorax or pleural effusion. IMPRESSION: Normal portable chest. Dictated by: Dictated on workstation # [id number]
[2022-04-26] MEDS ORDERED: VERAPAMIL 5 MG/2 ML (CALAN) VIAL IV ONE (07:44)
[2022-04-26] MEDS ORDERED: MIDAZOLAM 5 MG/5 ML (VERSED) VIAL ONE (07:45)
[2022-04-26] MEDS ORDERED: NITRO DRIP 25000 MCG/D5W 250 ML IV ONE (07:45)
[2022-04-26] MEDS ORDERED: fentaNYL INJ 100 MCG/2 ML AMP ONE (07:45)
[2022-04-26] MEDS ORDERED: HEParin 1000 UNIT/ML (10ML VIAL) FOR BOLUS ONE (07:45)
[2022-04-26] MEDS ORDERED: METO50TA7 PO ×2 (07:51)
[2022-04-26] MEDS ORDERED: HYDR25TA4 PO (07:51)
[2022-04-26] MEDS ORDERED: LEVO25CA4 PO (07:51)
[2022-04-26] MEDS ORDERED: DRON400T6 PO (07:51)
[2022-04-26] MEDS ORDERED: TIRZ2.5P SQ (07:51)
[2022-04-26] MEDS ORDERED: DILT120C85 PO (07:51)
[2022-04-26] MEDS ORDERED: INSU100I29 SQ (07:51)
[2022-04-26 07:58] LABS: CHLORIDE 101 MMOL/L (98-107); PROTHROMBIN TIME PATIENT 13.4 SEC (12.2-14.7); SODIUM 140 MMOL/L (135-145)
[2022-04-26 08:00] LABS: CALCIUM 9.5 MG/DL (8.5-10.1); TRIGLYCERIDES 506 MG/DL (<150)
[2022-04-26 08:01] LABS: GLUCOSE 176 MG/DL (70-105); TOTAL PROTEIN 8.3 GM/DL (6.4-8.2)
[2022-04-26 08:02] LABS: CARBON DIOXIDE 25 MMOL/L (21-32)
[2022-04-26 08:03] LABS: BILIRUBIN,TOTAL 0.4 MG/DL (0.1-1.0)
[2022-04-26 08:05] LABS: ALKALINE PHOSPHATASE 58 U/L (40-136); CHOLESTEROL 145 MG/DL (< 200); CREATININE SERUM 1.35 MG/DL (0.60-1.30); GFR ESTIMATED 58
[2022-04-26 08:06] LABS: BUN/CREATININE RATIO 21
[2022-04-26 08:07] LABS: HDL CHOLESTEROL 26 MG/DL (40-60)
[2022-04-26 08:08] LABS: ALANINE AMINOTRANSFERASE 41 U/L (0-55)
--- NOTE | 2022-04-26 08:44 | Cardiac Procedure Note-CS/ASA ---
Pre-Procedure Note Pre-Op Procedure Note Date of Available H&P: Apr 13, 2022 Date H&P Reviewed: Apr 26, 2022 Time H&P Reviewed: 08:10 History & Physical: H&P Reviewed, Patient Examed, No changes noted Pre-Operative Diagnosis: CAD Conscious Sedation Pre-Proced Time 08:10 ASA Score 3 For ASA 3 and 4: Consider anesthesia and medical clearance. Also, for patients with a history of failed moderate sedation consider anesthesia. Airway Lungs Heart ASA score ASA 1: a normal healthy patient ASA 2: a patient with a mild systemic disease (mid diabetes, controlled hypertension, obesity x ASA 3: a patient with a severe systemic disease that limits activity (angina, COPD, prior Myocardial infarction) ASA 4: a patient with an incapacitating disease that is a constant threat to life (CHF, renal failure) ASA 5: a moribund patient not expected to survive 24 hrs. (ruptured aneurysm) ASA 6: a declared brain- patient whose organs are being harvested. For emergent operations, add the letter E after the classification Mallampati Classification Grade 3 Sedation Plan Analgesia, Amnesia, Plan communicated to team members, Discussed options with patient/fam, Discussed risks with patient/fam The patient is an appropriate candidate to undergo the planned procedure, sedation, and anesthesia. The patient immediately re-assessed prior to indication. JAN SHEIKH MD Apr 26, 2022 08:44
[2022-04-26] MEDS ORDERED: METF-399 PO (08:59)
--- NOTE | 2022-04-26 09:00 | Discharge Inst-Post CATH ---
Discharge Inst-CATH/EP Problems Reviewed?: Yes Post Cardiac Cath/EP D/C Inst Follow Up/Plan Hold metformin for [address] Mccoy's office in 2 to 4 weeks <b>CARDIAC CATH/EP PROCEDURE DISCHARGE INSTRUCTIONS</b> ACTIVITY * Go Home directly and rest. * Limit activity of the leg (or wrist if it was used) for 7 days including aerobics, swimming, jogging, bicycling, etc. * Restrict stair-climbing for 7 days if possible, if not, climb up with your non-cath leg, then bring together on the same step. * Avoid lifting, pushing, pulling or excessive movement of the affected extremity for 7 days. * Customary sexual activity may be resumed after 2 days-use caution not to use a position that strains or causes pain to the affected extremity. * No driving for 24 hours. * NO SMOKING. * Avoid straining for bowel movements for 7 days. * Gentle walking on level ground is allowed. * Returning to work will depend on the type of procedure and the results. Your doctor will discuss this with you. CALL YOUR DOCTOR FOR ANY OF THE FOLLOWING: *If bleeding from the puncture site occurs- Apply gentle pressure to site with clean cloth and call your doctor or EMS. * If a knot or lump forms under the skin, increases in size, or causes pain. * If bruising appears to be worsening or moving further down your leg instead of disappearing. * Temperature above 101 F. CARE OF YOUR GROIN INCISION; * Bruising or purple discoloration of the skin near the puncture site is common. * You may shower only, no bathtub bathing for 5 days. Be careful to avoid slipping as your leg may feel stiff. * If a closure device was used on your femoral artery, please see the attached guide regarding care of the device and your leg. * Leave dressing on FOR 24 hours. CARE OF YOUR WRIST INCISION; * Bruising or purple discoloration of the skin near the puncture site is common. * You may shower. * DO NOT submerge wrist. * Leave dressing on FOR 24 hours. JAN MCCOY MD Apr 26, 2022 09:00
--- NOTE | 2022-04-26 09:02 | Cardiac Cath Report ---
Cardiac Cath Report Physician (s)/Channel Cementer Outsole Machine (s) Physician JAN SHEIKH MD Pre-Procedure Diagnosis Pre-Procedure Diagnosis: CAD Post-Procedure Note Procedure Start Date: Apr 26, 2022 Name of Procedure: Left heart catheterization Findings/Procedure Note PROCEDURE NOTE: 66-year-old gentleman with history of coronary artery disease, diabetes mellitus, hypertension hyperlipidemia, had an abnormal stress test, scheduled for cardiac catheterization possible PTCA. After explaining the procedure to the patient, all pros and cons were explained, all questions were answered. The patient signed the consent and then he was placed on the cardiac catheterization laboratory. Groin was prepped SL fashion local anesthesia was used. Sheath placed in the right radial artery, [place] catheter was advanced to the left ventricular cavity, pressure was measured, pullback LV to aorta was done, engage the right and left coronary system, multiple views were obtained. At the end of the procedure the sheath was removed. Vascular band was used FINDINGS: Hemodynamics LV 106/11, end-diastolic pressure of 11 Aorta 102/74 mean of 65 ANATOMY: Left Main is free of obstructive disease Left Anterior Descending has slightly slower flow in the LAD due to small vessel disease otherwise nonobstructive disease Left Circumflex has mild disease nonobstructive disease Right Coronary Artery is dominant artery with mild disease nonobstructive disease LV Gram was not done, pressure was measured CONCLUSION: 1. Small vessel disease in the distal LAD otherwise nonobstructive disease in the coronary system 2. Normal left ventricular end-diastolic pressure DISCUSSION AND RECOMMENDATION: Continue to maximize medical therapy Anesthesia Type: Conscious Sedation Estimated blood loss (mL): 10 ml Contrast Amount: 31 ml Total Radiation Dose: 436 mGy Post-Procedure Diagnosis Post-operative diagnosis: Coronary artery disease Hypertension Hyperlipidemia Diabetes mellitus JAN SHEIKH MD Apr 26, 2022 09:02
== END 2022-04-26 11:15 | disposition home or self-care (01) ==
LOC: CATH 06:58 → SDC 09:15 → CATH 11:15
PROVIDERS: ATTEND Internal Medicine Cardiovascular Disease
DX: I25.10 Atherosclerotic heart disease of native coronary artery without angina pectoris (principal); I10 Essential (primary) hypertension; E78.5 Hyperlipidemia, unspecified; E11.9 Type 2 diabetes mellitus without complications; I48.0 Paroxysmal atrial fibrillation; I48.92 Unspecified atrial flutter; E66.01 Morbid (severe) obesity due to excess calories; Z68.42 Body mass index [BMI] 45.0-49.9, adult; Z77.22 Contact with and (suspected) exposure to environmental tobacco smoke (acute) (chronic); Z79.4 Long term (current) use of insulin; Z79.84 Long term (current) use of oral hypoglycemic drugs; Z79.85 Long-term (current) use of injectable non-insulin antidiabetic drugs; Z79.899 Other long term (current) drug therapy; Z79.01 Long term (current) use of anticoagulants
CPT/HCPCS: 71045; 80053; 80061; 81000; 85027; 85610; 85730; 87081; 93005; 93458; C1894; 36415

== ENCOUNTER 2022-08-09 09:06 | Day surgery (SDC) | payer BC, MEDICARE ==
[~2022-08-09] VITALS: Ht 185 cm; Wt 161.0 kg
[~2022-08-09 09:06] MED LIST changes: +DILT120C85 PO; +HYDR25TA4 PO; +INSU100I29 SQ; +INSU100I55 SQ; +LEVO25CA4 PO; +STL80T PO; +TIRZ2.5P SQ; +TIRZ5PEN SQ
[2022-08-09] MEDS ORDERED: LIDOCAINE 1% INJ 20 ML VIAL ONE (09:39)
--- NOTE | 2022-08-09 10:27 | Implantation of Loop Monitor ---
Implant of Loop Monitior IMPLANTATION OF LOOP MONITOR REPORT DATE OF PROCEDURE: 08/09/22 PREOP DIAGNOSIS: Paroxysmal atrial fibrillation POSTOP DIAGNOSIS: Paroxysmal atrial fibrillation PROCEDURE DETAILS: The patient is a 67 male with history of paroxysmal atrial fibrillation requiring long-term surveillance. Therefore implantable loop recorder was discussed and agreed with the patient. Informed consent was taken. All risks and complications were discussed at length. The patient was draped and prepped in the usual sterile fashion. Local anesthesia was lidocaine, which was given in the substernal area close to the 4th intercostal space. Loop monitor was implanted according to the protocol. Steri-Strips were placed at the end of the procedure. There were no complications and the patient tolerated the procedure well. ANESTHESIA: Local anesthesia with lidocaine. COMPLICATIONS: None CONTRAST/FLUOROSCOPY: None CONCLUSION: Successful implantation of loop monitor with no complication FINAL DIAGNOSIS: Paroxysmal atrial fibrillation Palpitation Hypertension Hyperlipidemia JAN SHEIKH MD Aug 09, 2022 10:26
== END 2022-08-09 11:00 | disposition home or self-care (01) ==
LOC: CATH 09:06
PROVIDERS: ATTEND Internal Medicine Cardiovascular Disease
DX: I48.0 Paroxysmal atrial fibrillation (principal); R00.2 Palpitations; I48.19 Other persistent atrial fibrillation; I65.23 Occlusion and stenosis of bilateral carotid arteries; E66.01 Morbid (severe) obesity due to excess calories; E78.2 Mixed hyperlipidemia; E11.9 Type 2 diabetes mellitus without complications; I11.9 Hypertensive heart disease without heart failure; I25.10 Atherosclerotic heart disease of native coronary artery without angina pectoris; Z79.899 Other long term (current) drug therapy; Z79.4 Long term (current) use of insulin; Z79.84 Long term (current) use of oral hypoglycemic drugs; Z79.01 Long term (current) use of anticoagulants; Z77.22 Contact with and (suspected) exposure to environmental tobacco smoke (acute) (chronic); Z68.42 Body mass index [BMI] 45.0-49.9, adult
CPT/HCPCS: 33285; C1764

== ENCOUNTER 2022-10-11 07:59 | Observation (INO) | payer BC, MEDICARE ==
[~2022-10-11] VITALS: Ht 185.5 cm; Wt 162.1 kg
[2022-10-11] MEDS ORDERED: PHARMACY TO DOSE IV ONE (08:45)
[2022-10-11 08:46] LABS: BASOPHILS % (AUTO) 0 % (0-10); EOSINOPHILS # (AUTO) 0.1 10^3/uL (0.0-0.3); EOSINOPHILS % (AUTO) 2 % (0-10); HEMATOCRIT 39 % (40-54); HEMOGLOBIN 13.3 g/dL (13.3-17.7); LYMPHOCYTES # (AUTO) 1.5 10^3/uL (1.0-4.0); LYMPHOCYTES % (AUTO) 21 % (12-44); MEAN CORPUSCULAR HEMOGLOBIN 30 pg (25-34); MEAN CORPUSCULAR HGB CONC 34 g/dL (32-36); MEAN CORPUSCULAR VOLUME 87 fL (80-99); MEAN PLATELET VOLUME 10.9 fL (9.0-12.2); MONOCYTES # (AUTO) 0.6 10^3/uL (0.0-1.0); MONOCYTES % (AUTO) 8 % (0-12); NEUTROPHILS # (AUTO) 5.1 10^3/uL (1.8-7.8); NEUTROPHILS % (AUTO) 69 % (42-75); PLATELET COUNT 218 10^3/uL (130-400); WHITE BLOOD COUNT 7.4 10^3/uL (4.3-11.0)
[2022-10-11 08:49] LABS: POTASSIUM 3.7 MMOL/L (3.6-5.0)
[2022-10-11 08:50] LABS: CALCIUM 9.4 MG/DL (8.5-10.1)
--- NOTE | 2022-10-11 08:50 | Cardiology History & Physical ---
HPI-Cardiology Cardiology Consultation Date of Consultation 10/11/22 Date of Admission Time Seen by Provider: 08:45 Indication: Atrial fibrillation HPI Patient is a 67 y/o male with history of nonobstructive CAD, PAF, HTN, HLP, DM, ORA. Has been maintained on Sotalol 80mg BID since May 2022. Noted to have increased episodes of atrial fibrillation on his loop over the past month. Has been admitted to escalate the Sotalol dose from 80mg BID to 120mg BID. Denies any chest pain, dyspnea, dizziness or lightheadedness. On my evaluation was laying down in bed comfortably, denied any chest pain, no shortness of breath, no palpitation PMH-Cardiology Immunizations Up To Date Tetanus Booster (DTap): More than 5yrs Date of Pneumonia Vaccine: Jul 30, 2015 Date of Influenza Vaccine: Mar 30, 2021 Seasonal Allergies Seasonal Allergies: Yes Surgeries Yes (ep with ablation, CARDIOVERSION) Respiratory Yes Sleep Apnea Cardiovascular Yes (typical atrial flutter/A-FIB) Atrial Fibrillation Neurological Yes Concussion Genitourinary No Gastrointestinal No Musculoskeletal Yes Chronic Back Pain Endocrine Yes Diabetes, Insulin dep HEENT No Loss of Vision: Denies Hearing Impairment: Denies Cancer Yes Melanoma Did You Recieve Any Treatments: Yes Type of Treatment: Surgical Intervention Psychosocial No Integumentary No Blood Transfusions No Adverse Rxn to Transfusion: No Social History Patient Social History Marrital Status: Employed/Student: employed Smoking: Never smoker Family Hx Significant Family History: No Pertinent Family Hx, Hypertension ROS-Cardiology Review of Systems General: No Chills, No Night Sweats; Fatigue; No Malaise, No Appetite HEENT: No Head Aches, No Visual Changes, No Eye Pain, No Ear Pain, No Dysphasia, No Sinus Congestion, No Post Nasal Drip, No Sore Throat Pulmonary: Dyspnea; No Cough, No Pleuritic Chest Pain Cardiovascular: No: Chest Pain, Palpitations, Orthopnea, Paroxysmal Noc. Dyspnea, Edema, Lt Headedness Gastrointestinal: No: Nausea, Vomiting, Abdominal Pain, Diarrhea, Constipation, Melena, Hematochezia Genitourinary: No Dysuria, No Frequency, No Incontinence, No Hematuria, No R etention Musculoskeletal: No: neck pain, shoulder pain, arm pain, back pain, hand pain, leg pain, foot pain Neurological: No: Weakness, Numbness, Incoordination, Change in speech, Confusion, Seizures Home Medications & Allergies Allergies: Coded Allergies: NKANo Known Allergies (Verified Allergy, Unknown, 03/15/07) Home Medication List Reviewed: Yes Exam-Cardiology Vital Signs Vital Signs Date Time Temp Pulse Resp B/P (MAP) Pulse Ox O2 Delivery O2 Flow Rate FiO2 10/11/22 09:00 72 24 188/99 (128) 94 Room Air 10/11/22 08:15 36.3 Exam General Appearance: Alert, Oriented X3, Cooperative, No Acute Distress HEENT: Atraumatic, PERRLA Respiratory: Clear to Auscultation, Normal Air Movement Cardiovascular: Regular Rate, Normal S1, Normal S2, No Murmurs Abdominal: Normal Bowel Sounds, Soft, No Tenderness, No Hepatosplenomegaly, No Masses Extremities: No Clubbing, No Cyanosis, No Edema, Normal Pulses, No Tenderness/Swelling Skin: No Rashes, No Breakdown, No Significant Lesion Neuro: Normal Gait, Normal Speech, Strength at 5/5 X4 Ext, Normal Tone, Sensa tion Intact Psych/Mental Status: Mental Status NL, Mood NL Results Labs Labs Laboratory Tests 10/11/22 08:30: White Blood Count 7.4, Red Blood Count 4.48, Hemoglobin 13.3, Hematocrit 39L, Mean Corpuscular Volume 87, Mean Corpuscular Hemoglobin 30, Mean Corpuscular Hemoglobin Concent 34, Red Cell Distribution Width 13.6, Platelet Count 218, Mean Platelet Volume 10.9, Immature Granulocyte % (Auto) 0, Neutrophils (%) (Auto) 69, Lymphocytes (%) (Auto) 21, Monocytes (%) (Auto) 8, Eosinophils (%) (Auto) 2, Basophils (%) (Auto) 0, Neutrophils # (Auto) 5.1, Lymphocytes # (Auto) 1.5, Monocytes # (Auto) 0.6, Eosinophils # (Auto) 0.1, Basophils # (Auto) 0.0, Immature Granulocyte # (Auto) 0.0, Sodium Level 139, Potassium Level 3.7, Chloride Level 99, Carbon Dioxide Level 28, Anion Gap 12, Blood Urea Nitrogen 29H, Creatinine 1.25, Estimat Glomerular Filtration Rate 63, BUN/Creatinine Ratio 23, Glucose Level 197H, Calcium Level 9.4, Magnesium Level 1.8, Total Bilirubin 0.3, Direct Bilirubin 0.1, Indirect Bilirubin 0.2, Aspartate Amino Transf (AST/SGOT) 16, Alanine Aminotransferase (ALT/SGPT) 30, Alkaline Phosphatase 53, Total Protein 8.4H, Albumin 4.0 A/P-Cardiology Admission Diagnosis PAF HTN HLP ORA Admission Status: Observation Assessment/Plan Coronary artery disease, cardiac catheterization done April 26, 2022 showing small vessel disease in the distal LAD, otherwise nonobstructive disease. Paroxysmal atrial fibrillation/atrial flutter, started with atrial flutter with 2-1 block degenerated to atrial fibrillation, was seen and followed by Dr. Zhou in the past. Underwent A. fib ablation on 11/21/2019, has been doing well, Monitor evaluation showed multiple episodes of atrial fibrillation with rapid ventricular response. Failed treatment with Multaq. Follows with Dr Kiran He was admitted in May and started on sotalol 80mg BID. Noted to have increased episodes of atrial fibrillation over the past month. Patient is admitted for IV escalating dose of sotalol to 120 mg twice daily. Continue to monitor closely Borderline hypokalemia, replace and monitor Loop monitor battery depleted and extracted May 2022. Status post new loop monitor implantation done on August 09, 2022. Hypertension, restart home medications and continue to monitor. Echocardiogram was done in April 2020 showing normal LV size, EF 55 to 65%, left atrium is moderately to severely dilated. PA pressure 40 mmHg. Continue to monitor Hyperlipidemia, evaluate lipid profile and metabolic profile Diabetes mellitus, followed and managed by primary care physician. Hemoglobin A1c is 8.7 History of sinus node dysfunction with 3 to 4 seconds pause, asymptomatic. Discussed the possibility of pacemaker if needed in the future. Obstructive sleep apnea, using CPAP at night. Obesity, BMI is 47, we discussed weight loss and exercise. This is Sunni Armijo PA-C, as a scribe for Dr. Mccoy. Patient was seen and evaluated, I examined and interviewed the patient and discussed the management plan with Sunni, I agree with the current scribed note I made few modification using Italic font Patient is in paroxysmal atrial fibrillation, currently in sinus rhythm, was seen by Dr. Kiran and I discussed the management plan, we admitted the patient to escalate the sotalol dose to 120 mg twice daily Borderline QTc prolongation with underlying right bundle branch block noted, will give him additional potassium dose and monitor EKG closely. Monitor electrolytes. LIN-JAIRON,SUNNI K PA Oct 11, 2022 08:50 JAN MCCOY MD Oct 11, 2022 09:27
[2022-10-11 08:54] LABS: CREATININE SERUM 1.25 MG/DL (0.60-1.30)
[2022-10-11 08:56] LABS: MAGNESIUM 1.8 MG/DL (1.6-2.4)
[2022-10-11 09:09] LABS: TOTAL PROTEIN 8.4 GM/DL (6.4-8.2)
[2022-10-11 09:10] LABS: BILIRUBIN,TOTAL 0.3 MG/DL (0.1-1.0)
[2022-10-11 09:14] LABS: BILIRUBIN,DIRECT 0.1 MG/DL (0.0-0.3); BILIRUBIN,INDIRECT 0.2 MG/DL
[2022-10-11] MEDS ORDERED: ANTACID SUSP 30 ML UDC (MYLANTA) PO PRN (09:15)
[2022-10-11] MEDS ORDERED: CALCIUM CARBONATE 500 MG (TUMS) TAB.CHEW PO PRN (09:15)
[2022-10-11] MEDS ORDERED: diphenhydrAMINE 50 MG/ML INJ (BENADRYL) IVP PRN (09:15)
[2022-10-11] MEDS ORDERED: MELATONIN 3 MG TABLET PO PRN (09:15)
[2022-10-11] MEDS ORDERED: diphenhydrAMINE 25 MG TAB (BENADRYL) PO PRN (09:15)
[2022-10-11] MEDS ORDERED: polyethylene glycoL POWDER 17 GM (MIRALAX) PACK PO PRN (09:15)
[2022-10-11] MEDS ORDERED: HYDROmorphone 2 MG/ML VIAL (DILAUDID) IV PRN (09:15)
[2022-10-11] MEDS ORDERED: ONDANSETRON 4 MG (ZOFRAN) ORAL DISSOLVE TAB PO PRN (09:15)
[2022-10-11] MEDS ORDERED: ACETAMINOPHEN 325 MG TABLET PO PRN (09:15)
[2022-10-11] MEDS ORDERED: MILK OF MAGNESIA 400 MG/5 ML 30 ML UDC PO PRN (09:15)
[2022-10-11] MEDS ORDERED: ONDANSETRON 4 MG/2 ML (SDV) Z0FRAN IV PRN (09:15)
[2022-10-11] MEDS ORDERED: LACTULOSE SYRUP 10GM/15ML (ENULOSE) 30ML UDC PO PRN (09:15)
[2022-10-11] MEDS ORDERED: BISACODYL 10 MG SUPP (DULCOLAX) PR PRN (09:15)
[2022-10-11 09:26] VITALS: BP 188/99
[2022-10-11] MEDS ORDERED: KCL 20 MEQ TAB (K-DUR) PO NR (09:30)
[2022-10-11] MEDS: SOTALOL IV NR ×2 (09:38→09:48)
[2022-10-11] MEDS: NS IV NR ×2 (09:38→09:48)
[2022-10-11] MEDS ORDERED: LEVO25TA5 PO (09:41)
[2022-10-11] MEDS ORDERED: FURO40TA4 PO (09:41)
[2022-10-11] MEDS ORDERED: SOTA80TA62 PO (09:41)
[2022-10-11] MEDS ORDERED: DILT120C53 PO (09:41)
[2022-10-11] MEDS ORDERED: ERGO1250 PO (09:41)
[2022-10-11] MEDS ORDERED: INSU100I88 SC (09:41)
[2022-10-11] MEDS ORDERED: SEMA0.25 SQ (09:41)
[2022-10-11] MEDS ORDERED: MULT-1136 PO (09:41)
[2022-10-11] MEDS ORDERED: METF-399 PO (09:41)
[2022-10-11] MEDS ORDERED: UBID100C17 PO (09:42)
[2022-10-11] MEDS ORDERED: KRIL500C PO (09:42)
[2022-10-11] MEDS ORDERED: NF-ALLE180 PO (09:42)
[2022-10-11] MEDS ORDERED: CYAN-41 PO (09:42)
[2022-10-11] MEDS ORDERED: NON-FORMULARY MEDICATION 1 EA EA (Semaglutide (Ozempic) 0.5 MG) SQ SCH (10:00)
[2022-10-11] MEDS: MAGNESIUM 1 GM/D5W 100 ML IVPB IV SCH (10:44)
[2022-10-11] MEDS ORDERED: RT-ALBUTEROL SULF 2.5 MG/3 ML PRE-MIX VIAL INH PRN (11:00)
--- NOTE | 2022-10-11 11:25 | Consultation ---
SARAH BENTLEY 10/11/22 1124: HPI History of Present Illness: HPI/Chief Complaint 67 year old male with history of nonobstructive CAD, PAF, HTN, HLP, DM, ORA. He is admitted to [facility] for observation as cardiology increases his Sotalol dose from 80mg BID to 120mg BID. He has been maintained on his sotalol 80mg BID since May but per cardiology note has been having increased episodes of atrial fibrillation over the past month. Patient reports feeling well at this time and denies having any LH/dizziness, CP, palpitations, SOB, abd pain, N/V/D. Dr. Fox has been consulted for management of patients other chronic medical conditions during his stay. Source: patient Exam Limitations: no limitations Date Seen 10/11/22 Attending Physician Kayleigh Fox DO PCP Admitting Physician: Dorothy Mccoy MD Attending Physician: Dorothy Mccoy MD Referring Physician Dr. Mccoy Date of Admission Oct 11, 2022 at 07:59 Home Medications & Allergies Home Medications Reviewed patient Home Medication Reconciliation performed by pharmacy medication reconciliations biological lab technician and/or nursing. Patients Allergies have been reviewed. Allergies Allergies Coded Allergies NKANo Known Allergies (Verified Allergy, Unknown, 03/15/07) Past Rrjuyme-Ztvsti-Tiuglv Hx Patient Social History Marrital Status: Tobacco Use?: No Use of E-Cig and/or Vaping dev: No Substance use?: No Alcohol Use?: No Immunizations Up To Date Date of Influenza Vaccine: Mar 30, 2021 First/Initial COVID19 Vaccinat: 07/2020 Second COVID19 Vaccination Enrique: 08/2020 Tetanus Booster (TDap): More Than 5 Years Hepatitis A: No Hepatitis B: No PED Vaccines UTD: No Date of Pneumonia Vaccine: Jul 30, 2015 Seasonal Allergies Seasonal Allergies: Yes Current Status Advance Directives: No Communicates: Verbally Primary Language: Libyan Preferred Spoken Language: Libyan Implanted or Applied Medical D: CPAP Past Medical History Sleep Apnea Currently Using CPAP: Yes (USES C PAP AT HOME) Atrial Fibrillation, Chronic Edema/Swelling, High Cholesterol, Hypertension Concussion Chronic Back Pain Diabetes, Insulin dep Loss of Vision: Denies Hearing Impairment: Denies Melanoma Did You Recieve Any Treatments: Yes What Type of Treatment Did You: Surgical Intervention Blood Disorders: No Adverse Reaction/Blood Tranf: No Family Medical History No Pertinent Family Hx, Hypertension Review of Systems Constitutional: No chills, No dizziness, No fever EENTM: No hearing loss, No vision loss Respiratory: No cough, No short of breath Cardiovascular: No chest pain, No edema; palpitations (intermittent, nothing currently) Gastrointestinal: no symptoms reported Genitourinary: no symptoms reported Musculoskeletal: no symptoms reported Skin: no symptoms reported Psychiatric/Neurological: No Symptoms Reported Physical Exam Physical Exam Vital Signs Vital Signs - First Documented 10/11/22 10/11/22 08:00 08:15 Temp 36.3 Pulse 73 Resp 16 B/P (MAP) 199/109 (139) Pulse Ox 97 O2 Delivery Room Air Capillary Refill : Height, Weight, BMI Height: 6'1.00" Weight: 361lbs. 0.0oz. [id number]; 46.90 BMI Method: General Appearance: No Apparent Distress, WD/WN, Obese Eyes: Bilateral Eye PERRL, Bilateral Eye EOMI HEENT: PERRL/EOMI, Pharynx Normal, Moist Mucous Membranes Neck: Non Tender, Supple Respiratory: Chest Non Tender, Lungs Clear, Normal Breath Sounds, No Accessory Muscle Use, No Respiratory Distress Cardiovascular: Regular Rate, Rhythm, No Edema, No Murmur, Normal Peripheral Pulses Gastrointestinal: Normal Bowel Sounds, Non Tender, Soft Extremity: Normal Capillary Refill, Non Tender, No Calf Tenderness Neurologic/Psychiatric: Alert, Oriented x3, No Motor/Sensory Deficits, Normal Mood/Affect Skin: Normal Color, Warm/Dry Lymphatic: No Adenopathy Results Results/Procedures Labs Laboratory Tests 10/11/22 08:30 Patient resulted labs reviewed. Assessment/Plan Assessment and Plan Assess & Plan/Chief Complaint Assessment Paroxysmal Atrial Fibrillation/flutter -Increased frequency per cardiology. CAD w/ cath 04/26/22 -Echo April, showed LVEF 55-60%. PA pressure 40mmHg HTN Hyperlipidemia DM ORA Obesity Plan Sotalol 80mg BID increased to 120mg BID by Dr. Mccoy. Telemetry and close monitoring. Continue Eliquis. Will continue home medications and monitor. Do not expect there to be a need to make adjustments. DVT Proph: Lovenox Diet: as tolerated KAYLEIGH FOX DO 10/12/22 0518: Supervisory-Addendum Brief Verification & Attestation Participated in pt care: history, MDM, physical Personally performed: exam, history, MDM, supervision of care Care discussed with: Medical Student Procedures: n/a Results interpretation: Verified all documentation Verification and Attestation of Medical Student E/M Service A medical student performed and documented this service in my presence. I reviewed and verified all information documented by the medical student and made modifications to such information, when appropriate. I personally performed the physical exam and medical decision making. Kayleigh Fox, Oct 12, 2022,05:18 SARAH BENTLEY Oct 11, 2022 11:24 KAYLEIGH FOX DO Oct 12, 2022 05:18
[2022-10-11] MEDS ORDERED: LORATADINE (CLARITIN) 10 MG TAB PO PRN (12:00)
[2022-10-11] MEDS ORDERED: INSULIN ASPART SQ SCH (12:00)
[2022-10-11] MEDS ORDERED: PATIENT MAY USE OWN MEDS, ALL MC SCH (12:30)
[2022-10-11] MEDS: SOTALOL 80 MG (BETAPACE) TAB PO SCH (15:20)
[2022-10-11] MEDS: inSUlin ASPART (NovoLOG) 1 UNIT/0.01 ML (CHARGE PER UNIT) SC SCH (17:40)
[2022-10-11] MEDS: APIXABAN 5 MG (ELIQUIS) TABLET PO SCH (20:19)
[2022-10-11] MEDS: metFORMIN 500 MG (GLUCOPHAGE) TAB PO SCH (20:20)
[2022-10-11] MEDS: SENNOSIDES 8.6 MG (SENOKOT) TAB PO SCH (20:20)
[2022-10-11] MEDS: DOCUSATE SODIUM 100 MG (COLACE) CAP PO SCH (20:21)
[2022-10-11] MEDS ORDERED: [UNRECOGNIZED DRUG - REMARK] PO SCH (21:00)
[2022-10-11] MEDS ORDERED: FUROSEMIDE 40 MG (LASIX) TAB PO SCH (21:00)
[2022-10-11] MEDS ORDERED: INSULIN DETEMIR SC SCH (21:00)
[2022-10-11] MEDS ORDERED: KCL 10 MEQ TAB (MICRO K) PO SCH (21:00)
[2022-10-12] MEDS: SOTALOL 80 MG (BETAPACE) TAB PO SCH (03:01)
[2022-10-12 05:40] LABS: BASOPHILS % (AUTO) 0 % (0-10); EOSINOPHILS # (AUTO) 0.2 10^3/uL (0.0-0.3); EOSINOPHILS % (AUTO) 3 % (0-10); HEMATOCRIT 38 % (40-54); HEMOGLOBIN 12.6 g/dL (13.3-17.7); LYMPHOCYTES # (AUTO) 1.6 10^3/uL (1.0-4.0); LYMPHOCYTES % (AUTO) 21 % (12-44); MEAN CORPUSCULAR HEMOGLOBIN 29 pg (25-34); MEAN CORPUSCULAR HGB CONC 34 g/dL (32-36); MEAN CORPUSCULAR VOLUME 87 fL (80-99); MEAN PLATELET VOLUME 10.8 fL (9.0-12.2); MONOCYTES # (AUTO) 0.6 10^3/uL (0.0-1.0); MONOCYTES % (AUTO) 8 % (0-12); NEUTROPHILS # (AUTO) 5.2 10^3/uL (1.8-7.8); NEUTROPHILS % (AUTO) 68 % (42-75); PLATELET COUNT 218 10^3/uL (130-400); WHITE BLOOD COUNT 7.7 10^3/uL (4.3-11.0)
[2022-10-12 05:47] LABS: POTASSIUM 3.8 MMOL/L (3.6-5.0)
[2022-10-12 05:48] LABS: CALCIUM 9.5 MG/DL (8.5-10.1)
[2022-10-12 05:49] LABS: TOTAL PROTEIN 7.8 GM/DL (6.4-8.2)
[2022-10-12 05:51] LABS: BILIRUBIN,TOTAL 0.4 MG/DL (0.1-1.0)
[2022-10-12 05:53] LABS: CREATININE SERUM 1.17 MG/DL (0.60-1.30)
[2022-10-12] MEDS ORDERED: LEVOTHYROXINE 25 MCG (LEVOTHROID) TAB PO SCH (06:30)
[2022-10-12] MEDS: inSUlin ASPART (NovoLOG) 1 UNIT/0.01 ML (CHARGE PER UNIT) SC SCH (07:23)
[2022-10-12] MEDS: APIXABAN 5 MG (ELIQUIS) TABLET PO SCH (07:33)
--- NOTE | 2022-10-12 07:35 | Progress Note ---
SARAH BENTLEY 10/12/22 0735: Subjective Date Seen by a Provider: Oct 12, 2022 Time Seen by a Provider: 07:12 Subjective/Events-last exam Patient was awake standing up in his room when seen this morning. He was in sinus rhythm and reports feeling great. He has not had any CP, palpitations, LH, Dizziness, or SOB since increasing the dose of his sotalol from 80mg BID to 120mg BID. He reports good appetite and is urinating well. He has no questions or concerns and is ready to go home if possible. Review of Systems General: No Chills HEENT: No Head Aches Pulmonary: No Dyspnea, No Cough Cardiovascular: No: Chest Pain, Palpitations, Edema Gastrointestinal: No: Nausea, Vomiting, Abdominal Pain Genitourinary: No Dysuria, No Hematuria Musculoskeletal: back pain (minor) Neurological: No: Weakness, Numbness Objective Exam Last Set of Vital Signs Vital Signs Date Time Temp Pulse Resp B/P (MAP) Pulse Ox O2 Delivery O2 Flow Rate FiO2 10/12/22 05:01 66 10/12/22 05:00 14 147/85 (103) 94 Room Air 10/12/22 03:00 36.1 Capillary Refill : I&O Intake and Output 10/11/22 23:59 Intake Total 1225 ml Output Total 301 ml Balance 924 ml Intake Oral 920 ml IV Total 305 ml Output Urine Total 300 ml Stool Total 1 ml # Voids 5 Daily Weight Change No General: Alert, Oriented X3, No Acute Distress HEENT: Atraumatic, EOMI Lungs: Clear to Auscultation, Normal Air Movement Heart: Regular Rate, No Murmurs Abdomen: Normal Bowel Sounds, No Tenderness Extremities: No Clubbing, No Cyanosis, No Edema Skin: No Rashes, No Breakdown Neuro: Normal Gait, Normal Speech Results Lab Laboratory Tests 10/11/22 08:30: White Blood Count 7.4, Red Blood Count 4.48, Hemoglobin 13.3, Hematocrit 39L, Mean Corpuscular Volume 87, Mean Corpuscular Hemoglobin 30, Mean Corpuscular Hemoglobin Concent 34, Red Cell Distribution Width 13.6, Platelet Count 218, Mean Platelet Volume 10.9, Immature Granulocyte % (Auto) 0, Neutrophils (%) (Auto) 69, Lymphocytes (%) (Auto) 21, Monocytes (%) (Auto) 8, Eosinophils (%) (Auto) 2, Basophils (%) (Auto) 0, Neutrophils # (Auto) 5.1, Lymphocytes # (Auto) 1.5, Monocytes # (Auto) 0.6, Eosinophils # (Auto) 0.1, Basophils # (Auto) 0.0, Immature Granulocyte # (Auto) 0.0, Sodium Level 139, Potassium Level 3.7, Chloride Level 99, Carbon Dioxide Level 28, Anion Gap 12, Blood Urea Nitrogen 29H, Creatinine 1.25, Estimat Glomerular Filtration Rate 63, BUN/Creatinine Ratio 23, Glucose Level 197H, Calcium Level 9.4, Magnesium Level 1.8, Total Bilirubin 0.3, Direct Bilirubin 0.1, Indirect Bilirubin 0.2, Aspartate Amino Transf (AST/SGOT) 16, Alanine Aminotransferase (ALT/SGPT) 30, Alkaline Phosphatase 53, Total Protein 8.4H, Albumin 4.0 10/12/22 05:00: White Blood Count 7.7, Red Blood Count 4.34, Hemoglobin 12.6L, Hematocrit 38L, Mean Corpuscular Volume 87, Mean Corpuscular Hemoglobin 29, Mean Corpuscular Hemoglobin Concent 34, Red Cell Distribution Width 13.3, Platelet Count 218, Mean Platelet Volume 10.8, Immature Granulocyte % (Auto) 0, Neutrophils (%) (Auto) 68, Lymphocytes (%) (Auto) 21, Monocytes (%) (Auto) 8, Eosinophils (%) (Auto) 3, Basophils (%) (Auto) 0, Neutrophils # (Auto) 5.2, Lymphocytes # (Auto) 1.6, Monocytes # (Auto) 0.6, Eosinophils # (Auto) 0.2, Basophils # (Auto) 0.0, Immature Granulocyte # (Auto) 0.0, Sodium Level 138, Potassium Level 3.8, Chloride Level 98, Carbon Dioxide Level 26, Anion Gap 14, Blood Urea Nitrogen 26H, Creatinine 1.17, Estimat Glomerular Filtration Rate 68, BUN/Creatinine Ratio 22, Glucose Level 111H, Calcium Level 9.5, Total Bilirubin 0.4, Aspartate Amino Transf (AST/SGOT) 26, Alanine Aminotransferase (ALT/SGPT) 35, Alkaline Phosphatase 34L, Total Protein 7.8 Assessment/Plan Assessment/Plan Assess & Plan/Chief Complaint Paroxysmal Atrial Fibrillation/flutter -Increased frequency per cardiology prior to admission. CAD w/ cath 04/26/22 -Echo April, showed LVEF 55-60%. PA pressure 40mmHg HTN Hyperlipidemia DM ORA Hypothyroidism Obesity Plan Sotalol 80mg BID increased to 120mg BID by Dr. Mccoy. Telemetry and close monitoring. Continue Eliquis. Continues to be in sinus rhythm and tolerating well. Will continue home medications and monitor. Do not expect there to be a need to make adjustments. Decision for when patient can discharge is up to cardiology at this time. DVT Proph: Lovenox Diet: as tolerated KAYLEIGH HARPER DO 10/12/22 1041: Supervisory-Addendum Brief Verification & Attestation Participated in pt care: history, MDM, physical Personally performed: exam, history, MDM, supervision of care Care discussed with: Medical Student Procedures: n/a Results interpretation: Verified all documentation Verification and Attestation of Medical Student E/M Service A medical student performed and documented this service in my presence. I reviewed and verified all information documented by the medical student and made modifications to such information, when appropriate. I personally performed the physical exam and medical decision making. Kayleigh Harper Oct 12, 2022,10:41 SARAH BENTLEY Oct 12, 2022 07:35 KAYLEIGH HARPER DO Oct 12, 2022 10:41
[2022-10-12] MEDS: metFORMIN 500 MG (GLUCOPHAGE) TAB PO SCH ×2 (07:43→09:14)
[2022-10-12] MEDS: FUROSEMIDE 40 MG (LASIX) TAB PO SCH ×2 (07:43→07:49)
[2022-10-12 08:17] LABS: ALBUMIN 3.6 GM/DL (3.2-4.5)
[2022-10-12] MEDS ORDERED: STL80T PO (08:38)
--- NOTE | 2022-10-12 08:38 | Discharge Inst-Post CATH ---
Discharge Inst-CATH/EP Problems Reviewed?: Yes Post Cardiac Cath/EP D/C Inst Follow Up/Plan EKG in my office tomorrow Appointment with Dr. Mccoy's office in 1 to 2 weeks <b>CARDIAC CATH/EP PROCEDURE DISCHARGE INSTRUCTIONS</b> ACTIVITY * Go Home directly and rest. * Limit activity of the leg (or wrist if it was used) for 7 days including aerobics, swimming, jogging, bicycling, etc. * Restrict stair-climbing for 7 days if possible, if not, climb up with your non-cath leg, then bring together on the same step. * Avoid lifting, pushing, pulling or excessive movement of the affected extremity for 7 days. * Customary sexual activity may be resumed after 2 days-use caution not to use a position that strains or causes pain to the affected extremity. * No driving for 24 hours. * NO SMOKING. * Avoid straining for bowel movements for 7 days. * Gentle walking on level ground is allowed. * Returning to work will depend on the type of procedure and the results. Your doctor will discuss this with you. CALL YOUR DOCTOR FOR ANY OF THE FOLLOWING: *If bleeding from the puncture site occurs- Apply gentle pressure to site with clean cloth and call your doctor or EMS. * If a knot or lump forms under the skin, increases in size, or causes pain. * If bruising appears to be worsening or moving further down your leg instead of disappearing. * Temperature above 101 F. CARE OF YOUR GROIN INCISION; * Bruising or purple discoloration of the skin near the puncture site is common. * You may shower only, no bathtub bathing for 5 days. Be careful to avoid slipping as your leg may feel stiff. * If a closure device was used on your femoral artery, please see the attached guide regarding care of the device and your leg. * Leave dressing on FOR 24 hours. CARE OF YOUR WRIST INCISION; * Bruising or purple discoloration of the skin near the puncture site is common. * You may shower. * DO NOT submerge wrist. * Leave dressing on FOR 24 hours. JAN MCCOY MD Oct 12, 2022 08:38
--- NOTE | 2022-10-12 08:40 | Cardiology Progress Note ---
Subjective Date Seen by Provider: Oct 12, 2022 Time Seen by Provider: 08:39 Subjective/Events-last exam Patient was seen at bedside, did not sleep well last night Denied any chest pain Review of Systems General: No Chills, No Night Sweats; Fatigue; No Malaise, No Appetite, No Other HEENT: No Head Aches, No Visual Changes, No Eye Pain, No Ear Pain, No Dysphasia, No Sinus Congestion, No Post Nasal Drip, No Sore Throat, No Other Pulmonary: No Dyspnea, No Cough, No Pleuritic Chest Pain, No Other Cardiovascular: No: Chest Pain, Palpitations, Orthopnea, Paroxysmal Noc. Dyspnea, Edema, Lt Headedness, Other Objective-Cardiology Exam Last Set of Vital Signs Vital Signs 10/12/22 10/12/22 03:00 08:00 Temp 36.1 Pulse 73 Resp 20 B/P (MAP) 152/76 (101) Pulse Ox 92 O2 Delivery Room Air I&O Intake and Output 10/12/22 00:00 Intake Total 1225 ml Output Total 301 ml Balance 924 ml Intake Oral 920 ml IV Total 305 ml Output Urine Total 300 ml Stool Total 1 ml # Voids 5 Daily Weight Change No General: Alert, Oriented X3, No Acute Distress HEENT: Atraumatic, EOMI Neck: Supple, No JVD, No Thyromegaly Lungs: Clear to Auscultation, Normal Air Movement Heart: Regular Rate, No Murmurs Abdomen: Normal Bowel Sounds, No Tenderness Extremities: No Clubbing, No Cyanosis, No Edema Skin: No Rashes, No Breakdown Neuro: Normal Gait, Normal Speech Psych/Mental Status: Mental Status NL, Mood NL Results Lab Laboratory Tests 10/12/22 05:00 A/P-Cardiology Admission Diagnosis PAF HTN HLP ORA Assessment/Plan Coronary artery disease, cardiac catheterization done April 26, 2022 showing small vessel disease in the distal LAD, otherwise nonobstructive disease. Paroxysmal atrial fibrillation/atrial flutter, started with atrial flutter with 2-1 block degenerated to atrial fibrillation, was seen and followed by Dr. Zhou in the past. Underwent A. fib ablation on 11/21/2019, has been doing well, Monitor evaluation showed multiple episodes of atrial fibrillation with rapid ventricular response. Failed treatment with Multaq. Follows with Dr Kiran He was admitted in May and started on sotalol 80mg BID. Noted to have increased episodes of atrial fibrillation over the past month. Dose was escalated on October 11, 2022 to sotalol 120 mg twice daily And tolerated the escalation well. Planning for discharge and follow-up as an outpatient Loop monitor battery depleted and extracted May 2022. Status post new loop monitor implantation done on August 09, 2022. Hypertension, restart home medications and continue to monitor. Echocardiogram was done in April 2020 showing normal LV size, EF 55 to 65%, left atrium is moderately to severely dilated. PA pressure 40 mmHg. Continue to monitor Hyperlipidemia, evaluate lipid profile and metabolic profile Diabetes mellitus, followed and managed by primary care physician. Hemoglobin A1c is 8.7 History of sinus node dysfunction with 3 to 4 seconds pause, asymptomatic. Discussed the possibility of pacemaker if needed in the future. Obstructive sleep apnea, using CPAP at night. Obesity, BMI is 47, we discussed weight loss and exercise. Final diagnosis Paroxysmal atrial fibrillation Coronary artery disease Hypertension Hyperlipidemia JAN SHEIKH MD Oct 12, 2022 08:40
[2022-10-12] MEDS ORDERED: CYANOCOBALAMIN 1,000 MCG (VITAMIN B-12) TABLET PO SCH (09:00)
[2022-10-12] MEDS ORDERED: MULTIVIT W/MINERALS TAB (THERAGRAN M) PO SCH (09:00)
[2022-10-12] MEDS ORDERED: [UNRECOGNIZED DRUG - REMARK] PO SCH (09:00)
[2022-10-12] MEDS ORDERED: dilTIAZem120 MG (CARDIZEM CD) CAP PO SCH (09:00)
[2022-10-12] MEDS ORDERED: NON-FORMULARY MEDICATION 1 EA EA (Krill Oil 500 MG) PO SCH (09:00)
[2022-10-12] MEDS ORDERED: NON-FORMULARY MEDICATION 1 EA EA (Ubidecarenone (Coq-10) 100 MG) PO SCH (09:00)
[2022-10-12] MEDS: SENNOSIDES 8.6 MG (SENOKOT) TAB PO SCH (09:14)
[2022-10-12] MEDS: DOCUSATE SODIUM 100 MG (COLACE) CAP PO SCH (09:14)
[2022-10-12 09:55] VITALS: BP 146/86
[2022-10-16] MEDS ORDERED: VITAMIN D2 1.25 MG (50,000 UNITS) CAP PO SCH (09:00)
== END 2022-10-12 08:37 | disposition home or self-care (01) ==
LOC: ICU 07:59 → UNDOADMOB 07:59 → ICU 08:11 → UNDODISOB 10-12 08:37
PROVIDERS: ADMIT Internal Medicine Cardiovascular Disease; ATTEND Internal Medicine Cardiovascular Disease
DX: I48.0 Paroxysmal atrial fibrillation (principal); I10 Essential (primary) hypertension; E78.5 Hyperlipidemia, unspecified; I25.10 Atherosclerotic heart disease of native coronary artery without angina pectoris; E11.9 Type 2 diabetes mellitus without complications; E66.9 Obesity, unspecified; G47.33 Obstructive sleep apnea (adult) (pediatric); E03.9 Hypothyroidism, unspecified; I48.92 Unspecified atrial flutter; Z68.42 Body mass index [BMI] 45.0-49.9, adult; Z79.899 Other long term (current) drug therapy
CPT/HCPCS: 80048; 80053; 80076; 83735; 85025 ×2; 87081; 93005 ×2; G0378; G0379; 36415; 96365; 96366; 96372; 96376

== ENCOUNTER 2023-02-01 08:15 | Day surgery (SDC) | payer BC, MEDICARE ==
[~2023-02-01 08:15] MED LIST changes: +DILT120C53 PO; +DILT120C71 PO; -DILT120C85 PO; -INSU100I29 SQ; +INSU100I30 SQ; +INSU100I88 SC; +LEVO25TA5 PO; +MULT-1136 PO; +NF-ALLE180 PO; +POTA-185 PO; -POTA10TA PO; +SEMA0.25 SQ; +SOTA80TA62 PO; +UBID100C17 PO
[2023-02-01] MEDS ORDERED: NS IV 1000 ML 0 ML ONE (08:31)
[2023-02-01] MEDS ORDERED: NS IV 1000 ML 1,000 ML IV SCH (08:45)
== END 2023-02-01 08:45 | disposition home or self-care (01) ==
LOC: CATH 08:15
PROVIDERS: ATTEND Internal Medicine Interventional Cardiology
DX: I48.92 Unspecified atrial flutter (principal); Z53.8 Procedure and treatment not carried out for other reasons
CPT/HCPCS: 93005